=== PATIENT | female | born 1940 | race Caucasian/White ===

== ENCOUNTER → 2020-04-17 13:46 | Outpatient (BNVA) | payer MEDICARE, OTHER, SELFPAY | PROVIDERS: PCP Internal Medicine; Visit Provider Urology | DX: N31.9 Neuromuscular dysfunction of bladder, unspecified (principal); R39.14 Feeling of incomplete bladder emptying | CPT/HCPCS: 99212 ==

== ENCOUNTER 2020-08-01 14:00 | Outpatient (RCR) | payer MEDICARE, OTHER, SELFPAY ==
--- NOTE | 2020-05-17 13:52 | MHC.PT.EP ---
[facility] [place] Office [place] Office [place] Office [address] Sammie Barber [address] [phone] F: [phone] F: [phone] F: [phone] F: [phone] Physical Therapy Plan of Care Date of Evaluation: 05/17/20 Date of Surgery: none Diagnosis: Low back pain and R shoulder pain Assessment: Patient is an 79 year old R handed female who presents with s/s consistent with low back pain and R shoulder pain. She is not currently working and is fairly sedentary. She has had progressing Alzheimer's dementia. Patient past medical history includes chronic back and shoulder pain, and Alzheimer's dementia. Current impairments include pain, ROM, strength, safety, independence, activity tolerance and functional mobility. Functional limitations include decreased ability to walk, stand, transfer, negotiate stairs, and perform weight bearing activities.. Patient is motivated with good rehab potential. Skilled PT will address impairments and functional limitations in order to achieve goals. Frequency and Duration: The patient will be seen 1x/week for 8 weeks Short Term Goals: I with HEP - 2 weeks Flexion/abd 125 - 4 weeks SPADI 50/130 - 4 weeks Resident Doctor Goals: Oswestry 20% or better - 6 weeks Demo proper body mechanics for transfers and mini squat - 6 weeks Max pain 3/10 with ADLs - 8 weeks Treatment Plan: Modalities to reduce pain, spasms and effusion. Manual therapy to restore motion and function. Therapeutic exercise to improve strength and flexibility. Neuromuscular re-education for posture and balance. Therapeutic activities to return to functional activities of daily living. Electronically signed by: Alessandro Phillips, PT Please sign and return to therapist. Thank you for your referral.
--- NOTE | 2020-08-30 13:29 | MHC.PT.DC ---
[facility] [place] Office [place] Office [place] Office [address] Sammie Barber 140 [facility] [phone] F: [phone] F: [phone] F: [phone] F: [phone] Physical Therapy Discharge Report Diagnosis: Low back pain and R shoulder pain Date of Surgery: none Date of Evaluation: 05/17/20 Date of Discharge: 08/02/20 Treatments to Date: 17 Cancellations to Date: 0 No Shows to Date: 0 Discharge Status: Improved Function Independent with HEP Discharge Summary: Pt progressed well over the course of skilled PT making progress on impairments and functional limitations resulting in an improved quality of life. Pt is I with HEP and appropriate to d/c to HEP at this time. Electronically signed by: Alessandro Phillips, PT Please sign and return to therapist. Thank you for your referral.
== END 2020-08-30 13:29 | disposition home or self-care (01) ==
LOC: HO.PTCHIC 14:00
PROVIDERS: PCP Internal Medicine; Visit Provider Internal Medicine
DX: M54.5 Low back pain (principal); M25.511 Pain in right shoulder
CPT/HCPCS: 97110; 97140; 97162

== ENCOUNTER 2020-09-19 17:33 | Emergency (ER) | payer MEDICARE, OTHER, SELFPAY ==
--- NOTE | ~2020-09-19 | XR_ITS ---
EXAMINATION: XR FOREARM, RIGHT CLINICAL INFORMATION: Skin tear status post tripping and falling COMPARISON: None TECHNIQUE: AP and lateral views of the right forearm were obtained. FINDINGS: There is diffuse osteopenia. No acute fracture or dislocation. There is a chronic appearing ulnar styloid fracture. No radiopaque foreign body is visualized. XR/XR forearm RT 2V IMPRESSION: No acute bony abnormality of the right forearm. Old ulnar styloid fracture. No radiopaque foreign body.
[2020-09-19 17:55] VITALS: BP 123/61; PULSE 76; RESP 16; TEMP 36.4; O2SAT 96; BMI 23.3
--- NOTE | 2020-09-19 18:31 | ED_ITS ---
HPI - Wound/Laceration General Chief Complaint: Wound/Laceration Stated Complaint: RT ARM LACERTATION Time Seen by Provider: 09/19/20 18:11 Source: patient Mode of arrival: ambulatory Limitations: no limitations History of Present Illness HPI narrative: 80-year-old female with significant history as noted below she comes in today with injury to the right forearm from . States she tripped over his flexor and in for she hit the floor of the structure on her right forearm noticed it was a skin injury put a Band-Aid. Today has been solid felt that question may need suture and brought her in today. Also unsure of tetanus vaccination. Otherwise denies any other injury, no strike to the head not taking blood thinners. No lower extremity pain or discomfort. Onset (ago): day(s) Extremity Location: right: forearm Place: home Patient tetanus UTD: No Context: accidental Associated symptoms: none Treatments prior to arrival: cold therapy and bandage Related Data Home Medications Medication Instructions Recorded Confirmed calcium carbonate 200 mg calcium 200 mg PO TID 04/09/20 09/17/20 (500 mg) chewable tablet cranberry 400 mg capsule 400 mg PO DAILY 04/09/20 09/17/20 cyanocobalamin (vitamin B-12) 1,000 mcg PO DAILY 04/09/20 09/17/20 1,000 mcg capsule estradiol 1 g VAGINAL 2XW 04/09/20 09/17/20 fluoxetine 20 mg capsule 20 mg PO DAILY 04/09/20 09/17/20 Previous Rx's Medication Instructions Recorded simvastatin 5 mg tablet 5 mg PO BEDTIME #90 tab 03/29/20 folic acid 1 mg tablet 1 mg PO DAILY #90 tab 05/04/20 omeprazole 20 mg capsule,delayed 20 mg PO DAILY #90 cap 06/22/20 release Allergies Allergy/AdvReac Type Severity Reaction Status Date / Time Sulfa (Sulfonamide Allergy Unknown UNKNOWN, Verified 04/04/20 11:58 Antibiotics) hives [SULFA (SULFONAMIDE ANTIBIOTICS)] Review of Systems Review of Systems: Constitutional: No Weight loss, No Fever, No Chills, No Night Sweats, No Fatigue, No Malaise ENT/Mouth: No Hearing loss, No Ear Pain, No Nasal Congestion, No Sinus Pain, No Hoarseness, No sore throat, No Rhinorrhea, No Swallowing Difficulty Eyes: No Eye Pain, No Swelling, No Redness, No Foreign Body, No Discharge, No Vision Changes Cardiovascular: No Chest Pain, No SOB, No Dyspnea on Exertion, No Orthopnea, No Edema, No Palpitations Respiratory: No Cough, No Sputum, No Wheezing, No Smoke Exposure, No Dyspnea Gastrointestinal: No Nausea, No Vomiting, No Diarrhea, No Constipation, No abdominal Pain, No Hematochezia, No Melena Genitourinary: No Dysuria, No Urinary Frequency, No Hematuria, No Urinary Incontinence, No Urgency, No Flank Pain, No Urinary Flow Changes, No Hesitancy Musculoskeletal: No joint pain, No Myalgias, No Joint Swelling Skin: No Skin Lesions, No rash, as noted per HPI Neuro: No Weakness, No Numbness, No Paresthesias, No Loss of Consciousness, No Dizziness, No Headache Psych: No Social Issues Heme/Lymph: No Bruising, No Bleeding,No Lymphadenopathy Endocrine: No Polyuria, No Polydipsia, No Temperature Intolerance Yes all other systems are reviewed and are negative PMFSH Past Medical History Medical History (Updated 09/19/20 @ 18:43 by Jamaal Lowry NP) Alzheimer's dementia Esophageal stricture GERD (gastroesophageal reflux disease) Hypercholesterolemia Hypertension Left tibial fracture Neurogenic bladder Tubular adenoma of colon Vitamin D deficiency Surgical History History of biopsy History of bladder surgery History of lumpectomy of right breast History of removal of cyst History of removal of ovarian cyst History of tonsillectomy and adenoidectomy Skin cancer of face Family History Family History Father Lung cancer Mother No problems noted. Social History Social History (Updated 09/17/20 @ 11:40 by Lynne Rock CMA) Alcohol intake: current Alcohol intake frequency: a few times a month Smoking Status: Never smoker Advance Directives: No Advance Directives Information Provided: Yes Physical Exam Vital Signs: Vital Signs: Last Vital Signs Temp 97.5 F 09/19/20 17:55 Pulse 76 09/19/20 17:55 Resp 16 09/19/20 17:55 BP 123/61 09/19/20 17:55 Pulse Ox 96 09/19/20 17:55 Body Mass Index 23.3 Reviewed Const: General: cooperative and healthy appearing; No acute distress or intoxicated appearing Nutritional Appearance: average body habitus Orientation/consciousness: patient oriented x3 HENMT: Head: Yes normal to inspection Ears: hearing grossly normal bilaterally Eyes: General: appearance normal, both eyes and all related structures Visual Pradhan: normal visual pradhan by confrontation Neck: Neck: Yes normal visual inspection, No positive Brudzinski's sign, No positive Kernig's sign and No tender Thyroid: Thyroid normal Chest: Chest palpation & inspection: normal inspection of the chest Resp: Effort & Inspection: normal respiratory effort Auscultation: clear to auscultation bilaterally Cardio: Jugular venous distension: no JVD Rhythm: regular rhythm Heart sounds: S1 normal heart sound present and S2 normal heart sound present GI: Inspection: Yes normal to inspection Percussion: Yes normal to percussion Auscultation: normal bowel sounds : General: Yes no CVA tenderness Back/Spine/Pelvis: Back: no CVA tenderness Skin: General skin exam: no rashes or lesions noted Full body images: 1. 2 in linear skin looks tear mid volar forearm. Slight ecchymosis but no erythema or discharge. Skin well approximated. Neuro: General: patient oriented x3 Extrem: General: Yes normal to inspection Course Reevaluation(s) Reevaluation #1: Skin superficial skin tear without signs of infection cleaned and repaired with Steri-Strips. No need for antibiotics. X-ray without evidence of acute bony involvement. She has full range of motion x-ray does s how old findings. She has no complaint of pain or discomfort. Will discharge home with wound care return follow-up instructions. Stable for discharge. MDM - Wound/Laceration Lab Data Attestation: I reviewed the patient's lab results. Discharge Plan Discharge Clinical Impression: Skin tear, Skin wound closed with sterile strip Patient Disposition: Home, Self-Care Instructions: Skin Tear (ED) Additional Instructions: Keep site clean and dry Allow the Steri-Strips to follow up by himself in 3-5 days The x-ray the forearm did not show any evidence of acute fracture Monitor for signs for infection including redness, swelling, discharge or pain You can apply it once daily topical triple antibiotic such as bacitracin [id number] Thank you Prescriptions: No Action simvastatin 5 mg tablet 5 mg PO BEDTIME Qty: 90 RF: 3 folic acid 1 mg tablet 1 mg PO DAILY Qty: 90 RF: 3 omeprazole 20 mg capsule,delayed release(DR/EC) 20 mg PO DAILY Qty: 90 RF: 2 cyanocobalamin (vitamin B-12) 1,000 mcg capsule 1,000 mcg PO DAILY RF: 0 fluoxetine 20 mg capsule 20 mg PO DAILY RF: 0 cranberry 400 mg capsule 400 mg PO DAILY RF: 0 estradiol 0.01 % (0.1 mg/gram) cream 1 g vaginal 2XW RF: 0 calcium carbonate [Antacid (calcium carbonate)] 200 mg calcium (500 mg) tablet,chewable 200 mg PO TID RF: 0 Referrals: Po,Radha Salcido MD [Primary Care Provider] - 1 week Discharge Date/Time: 09/19/20 18:52
[2020-09-19] MEDS: Diphth,Pertus(ACell),Tet Adult 0.5 ML SYRINGE IM (18:38)
== END 2020-09-19 18:52 | disposition home or self-care (01) ==
PROVIDERS: Emergency Provider Internal Medicine; PCP Internal Medicine
DX: S51.811A Laceration without foreign body of right forearm, initial encounter (principal); M79.601 Pain in right arm; W26.9XXA Contact with unspecified sharp object(s), initial encounter; Y93.9 Activity, unspecified; Y92.009 Unspecified place in unspecified non-institutional (private) residence as the place of occurrence of the external cause; Y99.9 Unspecified external cause status; Z79.899 Other long term (current) drug therapy
CPT/HCPCS: 73090; 90471; 90715; 99283; 99284

== ENCOUNTER → 2020-10-16 13:06 | Outpatient (BNVA) | payer MEDICARE, OTHER, SELFPAY | PROVIDERS: PCP Internal Medicine; Visit Provider Urology | DX: R39.14 Feeling of incomplete bladder emptying (principal); N31.9 Neuromuscular dysfunction of bladder, unspecified; G30.9 Alzheimer's disease, unspecified; F02.80 Dementia in other diseases classified elsewhere, unspecified severity, without behavioral disturbance, psychotic disturbance, mood disturbance, and anxiety | CPT/HCPCS: 51798; 99212 ==

== ENCOUNTER 2020-11-07 11:39 | Outpatient (REF) | payer MEDICARE, OTHER, SELFPAY ==
--- NOTE | ~2020-11-07 | MM_ITS ---
EXAMINATION: MM SCREENING DIGITAL BREAST TOMOSYNTHESIS, BILATERAL CLINICAL INFORMATION: Screening. Asymptomatic. The lifetime risk of breast cancer based on the Tyrer-Cuzick Model is 2%. COMPARISON: Mammography: 01/29/2018, 12/24/2016, 12/17/2015 TECHNIQUE: Digital breast tomosynthesis is performed in both the craniocaudal and mediolateral oblique views along with computer-aided detection (CAD). Synthesized 2D images are generated from the tomosynthesis. FINDINGS: There are scattered areas of fibroglandular density (ACR BI-RADS breast composition Category b). Breast tissue composition borders on heterogeneously dense. There is fine fibronodular parenchymal pattern. There is no developing density or interval mass or architectural abnormality. Again, there are scattered bilateral grouped benign-appearing coarse calcifications which have slightly increased in number over time and show interval similar benign coarsening suggesting fibroadenomatous changes. No suspicious calcifications. The axilla and skin contours are unremarkable. MM/MM tomosynthesis screening BI IMPRESSION: No significant changes from prior studies. ASSESSMENT: BI-RADS 2: Benign RECOMMENDATION: Routine annual mammography screening. This patient's information was entered into a reminder system with a target due date for their next mammogram.
== END 2020-11-07 11:40 | disposition home or self-care (01) ==
LOC: HO.MAMMO 11:39
PROVIDERS: Visit Provider Internal Medicine
DX: Z12.31 Encounter for screening mammogram for malignant neoplasm of breast (principal)
CPT/HCPCS: 77063; 77067

== ENCOUNTER 2020-11-21 13:19 | Outpatient (REF) | payer MEDICARE, OTHER, SELFPAY ==
--- NOTE | ~2020-11-21 | MM_ITS ---
EXAMINATION: BONE DENSITOMETRY CLINICAL INDICATION: Menopause. COMPARISON: Previous BD dated 02/02/2018 and baseline BD dated 05/16/2005. TECHNIQUE: Using a [employer] DXA System (software version: 13.1) manufactured by [employer], dual-energy x-ray absorptiometry was performed of the lumbar spine and left hip. The images are of good technical quality. Summary results are attached. FINDINGS: AP SPINE L1-L4 (excluding L3): The data of L1-L4 has been changed to exclude the L3 vertebral body, because degenerative changes at this level may cause overestimation of lumbar spine density. Current: BMD 1.262 g/cm2, Z-score 2.7, T-score 0.8, normal, 2.9% increase from previous, 17.4% decrease from baseline (<5% change is not significant). Prior: BMD 1.226 g/cm2. Baseline: BMD 1.528 g/cm2. LEFT FEMUR, NECK: Current: BMD 0.780 g/cm2, Z-score 0.4, T-score -1.9, osteopenia. Prior: BMD 0.818 g/cm2. Baseline: BMD 0.989 g/cm2. LEFT FEMUR, TOTAL: Current: BMD 0.852 g/cm2, Z-score 0.9, T-score -1.2, osteopenia, 0.1% increase from previous, 14.8% decrease from baseline (<5% change is not significant). Prior: BMD 0.851 g/cm2. Baseline: BMD 1.000 g/cm2. IDENTIFIED RISK FACTORS: Menopause, height loss. HISTORY OF FRACTURE: None listed. MEDICATIONS: Vitamin D. MM/XR DEXA axial skeleton IMPRESSION: 1. DIAGNOSIS: Osteopenia based on the lowest T-score value of -1.9 in the femoral neck applying World Health Organization criteria. 2. 10-YEAR FRACTURE RISK PREDICTION, FRAX: Major osteoporotic fracture (clinical spine, forearm, hip or shoulder) 15.2%. Hip fracture 4.4%. 3. Treatment Recommendations: NOF guidelines recommend consideration for treatment in postmenopausal women and men age 50 and older presenting with the following: -A hip or vertebral (clinical or morphometric) fracture. -T-score less than or equal to -2.5 at the femoral neck or spine after appropriate evaluation to exclude secondary causes. -Low bone mass at the hip or spine and a 10-year fracture probability by FRAX of greater than or equal to 3% for hip fracture or greater than or equal to 20% for major osteoporotic fracture based on the [place] adapted WHO algorithm. 4. Other Recommendations: All treatment decisions require clinical judgment and consideration of individual patient factors, including patient preferences, comorbidities, previous drug use, risk factors not captured in the FRAX model (e.g. frailty, falls, vitamin D deficiency, increased bone turnover, interval significant decline in bone density) and possible under or overestimation of fracture risk by FRAX. Additional medical evaluation for secondary cause of low bone mineral density may be appropriate. FUTURE SCAN RECOMMENDATION: People with diagnosed cases of osteoporosis or at high risk for fracture should have regular bone mineral density tests. For patients eligible for Medicare, routine testing is allowed once every 2 years. The testing frequency can be increased to one year for patients who have rapidly progressing disease, those who are receiving or discontinuing medical therapy to restore bone mass, or have additional risk factors.
== END 2020-11-21 13:20 | disposition home or self-care (01) ==
LOC: HO.MAMMO 13:19
PROVIDERS: Visit Provider Nurse Practitioner Family
DX: Z13.820 Encounter for screening for osteoporosis (principal); M85.80 Other specified disorders of bone density and structure, unspecified site; Z78.0 Asymptomatic menopausal state; Z79.899 Other long term (current) drug therapy
CPT/HCPCS: 77080

== ENCOUNTER 2020-12-27 11:38 | Outpatient (REF) | payer MEDICARE, OTHER, SELFPAY ==
[2020-12-27 12:33] LABS: MANUAL DIFF FLAG NO
[2020-12-27 12:42] LABS: Basophils Percent Auto 0.3 % (0-2); Eosinophils Percent Auto 0.3 % (0-4); Hemoglobin 14.1 g/dl (12.0-16.0); Imm Gran Abs Auto 0.04 X10*3/uL (0.00-0.03); Imm Gran Pct Auto 0.6 % (0.0-0.4); Lymphocytes Absolute Auto 1.7 X10*3/uL (1.2-4.9); Lymphocytes Percent Auto 24.6 % (20-40); Mean Corpuscular HGB Conc 33.6 g/dl (31.0-35.0); Mean Corpuscular Hemoglobin 31.9 pg (27.0-33.0); Mean Platelet Volume 10.5 fL (9.4-12.3); Monocytes Absolute Auto 0.6 X10*3/uL (0.1-1.2); Neutrophils Absolute Auto 4.6 X10*3/uL (2.0-8.3); Neutrophils Percent Auto 65.2 % (45-73); Platelet Count 223 X10*3/uL (160-400); Red Blood Count 4.42 X10*6/uL (4.20-5.50)
[2020-12-27 13:18] LABS: Alanine Aminotransferase 12 U/L (0-31); Alkaline Phosphatase 68 U/L (39-117); Anion Gap 13 (12-20); Aspartate Amino Transferase 16 U/L (5-31); Bilirubin Total 0.8 mg/dL (0.0-1.0); Blood Urea Nitrogen 14 mg/dL (9-16); Calcium 9.4 mg/dL (8.4-10.2); Carbon Dioxide 25 mmol/L (22-29); Chloride 101 mmol/L (96-108); Cholesterol 147 mg/dL; Estimated Glomerular Filt Rate > 60; Glucose Random 90 mg/dL (60-115); HDL Cholesterol 52 mg/dL; LDL Cholesterol Calculated 85 mg/dl; Potassium 4.3 mmol/L (3.3-5.1); Sodium 135 mmol/L (135-145); Total Protein 6.2 g/dL (6.5-8.0); Triglycerides 52 mg/dL
[2020-12-27 13:25] LABS: Free T4 (Free Thyroxine) 1.17 ng/dL (0.71-1.85); Thyroid Stimulating Hormone 0.99 uIU/mL (0.32-4.0)
[2020-12-27 15:46] LABS: Folate 18.9 ng/mL (> or = 4.0); Vitamin B12 1186 pg/mL (200-900)
== END 2020-12-27 11:39 | disposition home or self-care (01) ==
LOC: HO.LAB 11:38
PROVIDERS: PCP Internal Medicine; Visit Provider Internal Medicine
DX: I10 Essential (primary) hypertension (principal); E78.00 Pure hypercholesterolemia, unspecified
CPT/HCPCS: 36415; 80053; 80061; 82607; 82746; 84439; 84443; 85025

== ENCOUNTER 2021-02-27 15:00 | Outpatient (RCR) | payer MEDICARE, OTHER, SELFPAY ==
--- NOTE | 2020-10-26 14:43 | MHC.PT.EP ---
[facility] [place] Office [place] Office [place] Office [address] Emani Barber [address] [phone] F: [phone] F: [phone] F: [phone] F: [phone] Physical Therapy Plan of Care Date of Evaluation: Date of Surgery: Diagnosis: R shoulder pain Assessment: Pt is a 80 y/o female referred to PT s/p fall for R shoulder pain who presents with R shoulder dysfunction resulting in decreased tolerance and ability to perform reaching a high shelf, dressing pullovers, reaching neck and hair for hygiene/ dressing and carrying objects of weight secondary to decreased UE strength and ROM, decreased shoulder and cervical posture, increased tissue tension and pain. Pt is deemed an appropriate candidate to receive skilled PT in order to address her physical limitations to improve her functional ability. Frequency and Duration: The patient will be seen 2 x/ wk x 5 wks. Short Term Goals: In 1 week: initiate HEP with evidence of compliance. Vat Tender Goals: I with HEP. Pt will be able to place object on high shelf with managed Sx. initial: 5/10 pain and difficulty. Pt will be able to dress pullovers with managed Sx; initial: 5/10 pain and difficulty. Treatment Plan: Modalities to reduce pain, spasms and effusion. Manual therapy to restore motion and function. Therapeutic exercise to improve strength and flexibility. Neuromuscular re-education for posture and balance. Therapeutic activities to return to functional activities of daily living. Electronically signed by: Kenan Arnett PT. Please sign and return to therapist. Thank you for your referral.
--- NOTE | 2021-07-29 08:10 | MHC.PT.DC ---
[facility] [place] Office [place] Office [place] Office [address] Sammie Barber 140 [facility] [phone] F: [phone] F: [phone] F: [phone] F: [phone] Physical Therapy Discharge Report Diagnosis: R shoulder pain Date of Surgery: Date of Evaluation: 10/26/20 Date of Discharge: 04/17/21 Treatments to Date: 13 Cancellations to Date: No Shows to Date: Discharge Status: Improved Function Independent with HEP Recommend MD Follow-up Discharge Summary: Pt did improve her ROM and functional following fall and shoulder injury though ROM and strength still limited with some age related factors considered. Electronically signed by: Kenan Arnett PT. Please sign and return to therapist. Thank you for your referral.
== END 2021-07-29 08:11 | disposition home or self-care (01) ==
LOC: HO.PTCHIC 15:00
PROVIDERS: PCP Internal Medicine; Visit Provider Internal Medicine
DX: M25.511 Pain in right shoulder; M54.50 Low back pain, unspecified
CPT/HCPCS: 97110; 97140; 97150; 97161

== ENCOUNTER → 2021-04-16 13:42 | Outpatient (BNVA) | payer MEDICARE, OTHER, SELFPAY | PROVIDERS: PCP Internal Medicine; Visit Provider Urology | DX: N31.9 Neuromuscular dysfunction of bladder, unspecified (principal); R39.14 Feeling of incomplete bladder emptying | CPT/HCPCS: 51798; 99212 ==

== ENCOUNTER → 2021-08-05 15:23 | Outpatient (BNVA) | payer MEDICARE, OTHER, SELFPAY | PROVIDERS: PCP Internal Medicine; Visit Provider Obstetrics & Gynecology | DX: N81.10 Cystocele, unspecified (principal) | CPT/HCPCS: 99202 ==

== ENCOUNTER 2021-11-21 16:06 | Outpatient (REF) | payer MEDICARE, OTHER, SELFPAY ==
--- NOTE | ~2021-11-21 | XR_ITS ---
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 TECHNIQUE: 4 views of the sinuses were obtained. FINDINGS: Sinuses show no air-fluid levels or definite mucosal thickening or polypoid mass. The nasopharynx appears normal in contour on the lateral view. The visualized mastoid air cells show no air-fluid levels. XR/XR sinus min 3V IMPRESSION: Unremarkable examination.
== END 2021-11-21 16:07 | disposition home or self-care (01) ==
LOC: HO.XRAY 16:06
PROVIDERS: PCP Internal Medicine; Visit Provider Nurse Practitioner Family
DX: J32.4 Chronic pansinusitis (principal)
CPT/HCPCS: 70220

== ENCOUNTER 2021-11-29 12:52 | Outpatient (REF) | payer MEDICARE, OTHER, SELFPAY ==
--- NOTE | ~2021-11-29 | MM_ITS ---
EXAMINATION: MM SCREENING DIGITAL BREAST TOMOSYNTHESIS, BILATERAL CLINICAL INFORMATION: Screening. Asymptomatic. The lifetime risk of breast cancer based on the Tyrer-Cuzick Model is 2%. COMPARISON: Mammography: 11/07/2020, 01/29/2018, 12/24/2016, 12/17/2015, 12/12/2014 TECHNIQUE: Digital breast tomosynthesis is performed in both the craniocaudal and mediolateral oblique views along with computer-aided detection (CAD). Synthesized 2D images are generated from the tomosynthesis. FINDINGS: There are scattered areas of fibroglandular density (ACR BI-RADS breast composition Category b). There are no significant masses, abnormal calcifications, or other abnormalities. There are scattered shifting fibroglandular parenchymal densities from year to year related to variation in positioning. No developing density or significant changes. No architectural abnormality. Scattered bilateral benign grouped coarse calcifications are again demonstrated suggesting scattered fibroadenomatous change. No interval suspicious calcifications from prior study. The axilla are unremarkable. MM/MM tomosynthesis screening BI IMPRESSION: No significant changes from prior exams. ASSESSMENT: BI-RADS 2: Benign RECOMMENDATION: Routine annual mammography screening. This patient's information was entered into a reminder system with a target due date for their next mammogram.
== END 2021-11-29 12:53 | disposition home or self-care (01) ==
LOC: HO.MAMMO 12:52
PROVIDERS: Visit Provider Internal Medicine
DX: Z12.31 Encounter for screening mammogram for malignant neoplasm of breast (principal)
CPT/HCPCS: 77063; 77067

== ENCOUNTER → 2022-03-25 15:02 | Outpatient (BNVA) | payer MEDICARE, OTHER, SELFPAY | PROVIDERS: PCP Internal Medicine; Visit Provider Urology | DX: N39.0 Urinary tract infection, site not specified (principal); R39.12 Poor urinary stream; R33.9 Retention of urine, unspecified | CPT/HCPCS: 51798; 99212 ==

== ENCOUNTER 2022-04-14 14:00 | Outpatient (RCR) | payer MEDICARE, OTHER, SELFPAY ==
--- NOTE | 2022-03-10 11:56 | MHC.PT.EP ---
[facility] [place] Office [place] Office [place] Office [address] Emani Barber [address] [phone] F: [phone] F: [phone] F: [phone] F: [phone] Physical Therapy Plan of Care Date of Evaluation: Date of Surgery: n/a Diagnosis: Pain in R shoulder Assessment: Patient is a 81 year old R handed female who presents with s/s consistent with R shoulder pain. She does not work and is limited by alzheimers dementia. She does like to stay active in the community. Current impairments include pain, posture, ROM, strength, activity tolerance and functional mobility. Functional limitations include decreased ability to reach, lift, carry, and sleep. Patient is motivated with good rehab potential. Skilled PT will address impairments and functional limitations in order to achieve goals. Frequency and Duration: The patient will be seen 1x/week for 6 weeks Short Term Goals: I with HEP - 2 weeks AROM flexion and scaption, abduction to 140 - 3 weeks ER strength to 4/5 - 3 weeks Fisheries [employer] Officer Goals: Pain free sleep and ADLs - 6 weeks SPADI 70/130 or better - 6 weeks Treatment Plan: Modalities to reduce pain, spasms and effusion. Manual therapy to restore motion and function. Therapeutic exercise to improve strength and flexibility. Neuromuscular re-education for posture and balance. Therapeutic activities to return to functional activities of daily living. Electronically signed by: Alessandro Phillips, PT Please sign and return to therapist. Thank you for your referral.
--- NOTE | 2022-07-25 08:24 | MHC.PT.DC ---
[facility] [place] Office [place] Office [place] Office [address] Sammie Barber [address] [phone] F: [phone] F: [phone] F: [phone] F: [phone] Physical Therapy Discharge Report Diagnosis: Pain in R shoulder Date of Surgery: n/a Date of Evaluation: 03/10/22 Date of Discharge: 06/10/22 Treatments to Date: 5 Cancellations to Date: No Shows to Date: Discharge Status: Improved Function Independent with HEP Discharge Summary: She did improve with strength and pain. She did also elect to hold on further PT at this time. Electronically signed by: Alessandro Phillips, PT Please sign and return to therapist. Thank you for your referral.
== END 2022-07-25 08:25 | disposition home or self-care (01) ==
LOC: HO.PTCHIC 14:00
PROVIDERS: PCP Internal Medicine; Visit Provider Internal Medicine
DX: M25.511 Pain in right shoulder (principal)
CPT/HCPCS: 97110; 97140; 97163

== ENCOUNTER 2022-08-26 12:01 | Outpatient (REF) | payer MEDICARE, OTHER, SELFPAY ==
[2022-08-26 12:22] LABS: MANUAL DIFF FLAG NO
[2022-08-26 13:15] LABS: Basophils Percent Auto 0.3 % (0-2); Eosinophils Percent Auto 0.4 % (0-4); Hematocrit 44.8 % (37.0-47.0); Imm Gran Abs Auto 0.08 X10*3/uL (0.00-0.03); Imm Gran Pct Auto 0.8 % (0.0-0.4); Lymphocytes Absolute Auto 2.1 X10*3/uL (1.2-4.9); Lymphocytes Percent Auto 20.2 % (20-40); Mean Corpuscular HGB Conc 33.5 g/dl (31.0-35.0); Mean Corpuscular Hemoglobin 31.7 pg (27.0-33.0); Mean Corpuscular Volume 94.7 fL (80.0-98.0); Mean Platelet Volume 10.2 fL (9.4-12.3); Monocytes Absolute Auto 0.8 X10*3/uL (0.1-1.2); Monocytes Percent Auto 8.1 % (2-11); Neutrophils Absolute Auto 7.2 x10*3/uL (2.0-8.3); Neutrophils Percent Auto 70.2 % (45-73); Platelet Count 234 X10*3/uL (160-400); Red Blood Count 4.73 X10*6/uL (4.20-5.50); White Blood Count 10.2 X10*3/uL (4.8-10.8)
[2022-08-26 13:53] LABS: Alanine Aminotransferase 11 U/L (0-31); Albumin Level 3.8 g/dL (3.5-5.0); Alkaline Phosphatase 69 U/L (39-117); Anion Gap 8 (12-20); Aspartate Amino Transferase 13 U/L (5-31); Blood Urea Nitrogen 15 mg/dL (9-16); Calcium 9.2 mg/dL (8.4-10.2); Carbon Dioxide 30 mmol/L (22-29); Chloride 103 mmol/L (96-108); Cholesterol 204 mg/dL; Estimated Glomerular Filt Rate > 60; Glucose Fasting 85 mg/dL (60-99); HDL Cholesterol 58 mg/dL; LDL Cholesterol Calculated 133 mg/dl; Sodium 137 mmol/L (135-145); Total Protein 5.9 g/dL (6.5-8.0); Triglycerides 69 mg/dL
[2022-08-26 14:17] LABS: Folate > 20.0 ng/mL (> or = 4.0); Free T4 (Free Thyroxine) 1.15 ng/dL (0.71-1.85); Thyroid Stimulating Hormone 0.98 uIU/mL (0.32-4.0); Vitamin B12 799 pg/mL (200-900); Vitamin D 25-OH Total 47.7 ng/mL (>30)
== END 2022-08-26 12:02 | disposition home or self-care (01) ==
LOC: HO.LAB 12:01
PROVIDERS: PCP Internal Medicine; Visit Provider Internal Medicine
DX: E78.00 Pure hypercholesterolemia, unspecified (principal); K21.9 Gastro-esophageal reflux disease without esophagitis; I10 Essential (primary) hypertension; S82.202A Unspecified fracture of shaft of left tibia, initial encounter for closed fracture; X58.XXXA Exposure to other specified factors, initial encounter; Y93.9 Activity, unspecified; Y92.9 Unspecified place or not applicable; Y99.9 Unspecified external cause status
CPT/HCPCS: 36415; 80053; 80061; 82306; 82607; 82746; 84439; 84443; 85025

== ENCOUNTER → 2022-09-30 11:27 | Outpatient (BNVA) | payer MEDICARE, OTHER, SELFPAY | PROVIDERS: PCP Internal Medicine; Visit Provider Nurse Practitioner Family | DX: R33.9 Retention of urine, unspecified (principal); N39.0 Urinary tract infection, site not specified | CPT/HCPCS: 51798; 99212 ==

== ENCOUNTER 2022-12-16 12:21 | Outpatient (REF) | payer MEDICARE, OTHER, SELFPAY ==
--- NOTE | ~2022-12-16 | MM_ITS ---
EXAMINATION: MM SCREENING DIGITAL BREAST TOMOSYNTHESIS, BILATERAL CLINICAL INFORMATION: Screening. Asymptomatic. The lifetime risk of breast cancer based on the Tyrer-Cuzick Model is 0.9%. COMPARISON: Mammography: This study is compared with prior exams dating back to 2017. TECHNIQUE: Digital breast tomosynthesis is performed in both the craniocaudal and mediolateral oblique views along with computer-aided detection (CAD). Synthesized 2D images are generated from the tomosynthesis. FINDINGS: There are scattered areas of fibroglandular density (ACR BI-RADS breast composition Category b). There are no significant masses, abnormal calcifications, or other abnormalities. There are bilateral benign calcifications. MM/MM tomosynthesis screening BI IMPRESSION: No mammographic evidence of malignancy. ASSESSMENT: BI-RADS BI-RADS 2 - Benign Findings RECOMMENDATION: Routine annual mammography screening. 1 year F/U This examination should not preclude the clinical evaluation of a suspicious palpable abnormality. This patient's information was entered into a reminder system with a target due date for their next mammogram.
== END 2022-12-16 12:22 | disposition home or self-care (01) ==
LOC: HO.MAMMO 12:21
PROVIDERS: PCP Internal Medicine; Visit Provider Internal Medicine
DX: Z12.31 Encounter for screening mammogram for malignant neoplasm of breast (principal)
CPT/HCPCS: 77063; 77067

== ENCOUNTER → 2022-12-16 12:30 | Outpatient (BNV) | payer MEDICARE, OTHER, SELFPAY | PROVIDERS: PCP Internal Medicine; Visit Provider Radiology Diagnostic Radiology | DX: Z12.31 Encounter for screening mammogram for malignant neoplasm of breast (principal) | CPT/HCPCS: 77063; 77067 ==

== ENCOUNTER 2023-02-27 14:27 | Outpatient (AMB) | payer MEDICARE, OTHER, SELFPAY ==
[2023-02-27 14:38] VITALS: BP 126/62; PULSE 75; O2SAT 100; BMI 22.3
--- NOTE | 2023-02-27 14:38 | A.OFFPC_ITS ---
Vital Signs 02/27/23 14:38 Height 5 ft 3 in Weight 126 lb BMI 22.3 BP 126/62 Blood Pressure Location Lt brachial Position Sitting Pulse 75 Pulse Source Pulse Oximeter Pulse Oximetry (%) 100 Oxygen Delivery Method Room Air Intake Visit Reasons: 3 month f/u Allergies Sulfa (Sulfonamide Antibiotics) [SULFA (SULFONAMIDE ANTIBIOTICS)] Allergy (Unknown, Verified 02/27/23 14:38) UNKNOWN, hives Medication List - Last Reconciled 02/27/23 by Radha Kendall MD bethanechol chloride 5 mg PO TID cholecalciferol (vitamin D3) 50 mcg PO DAILY 90 days cranberry 400 mg PO DAILY cyanocobalamin (vitamin B-12) 1,000 mcg PO DAILY 90 days donepezil 10 mg PO BEDTIME fluticasone propionate 50 mcg/actuation (Flonase Allergy Relief) 1 spray intranasal DAILY folic acid 1 mg PO DAILY ketoconazole 2% 1 appl topical BID 30 days loratadine (Children's Loratadine) 5 mg PO DAILY omeprazole 20 mg PO DAILY sertraline 25 mg PO DAILY simvastatin 5 mg PO BEDTIME sodium chloride 0.65% (Saline Nasal) 1 spray intranasal Q4H PRN tamsulosin 0.4 mg PO BEDTIME Tobacco use date assessed: 06/03/22 Fall risk assessment: No Falls in past year Last assessed Fall Risk: 02/27/23 Dental Screening Dental Screen Date: 02/27/23 Did you have a dental visit in the last 12 months?: Yes Did you have a dental problem in the last 6 months where you did not have access to dental care?: No Was dental information given to patient?: Patient has dentist HPI 3 month f/u HPI Details 82-year-old female with dementia, hyperc holesterolemia GERD and neurogenic bladder coming in for follow-up last seen in August 2022 patient is up-to-date with mammogram and colonoscopy. Patient was sent to the memory clinic for the dementia vascular late dementia diagnosis states good candidate for Aricept 10 mg once a day advised LDL of less than 70. Review of the notes received from [facility] September 2022 having total abdominal hysterectomy with bilateral salpingo-oophorectomy september 2022. Patient has also seen urology for the incomplete bladder emptying patient on self catheterization and given Estrace cream. will be seeing urology ? stim [facility] Medical History (Updated 02/27/23 @ 14:58 by Radha Kendall MD) Alzheimer's dementia Medicare annual wellness visit, subsequent Post-menopausal Nocturia Weak urinary stream Left tibial fracture Vitamin D deficiency Neurogenic bladder GERD (gastroesophageal reflux disease) Esophageal stricture Hypercholesterolemia Hypertension Tubular adenoma of colon Surgical History (Updated 02/27/23 @ 14:59 by Radha Kendall MD) S/P CONSUELO-BSO History of colonoscopy Skin cancer of face History of removal of cyst History of biopsy History of lumpectomy of right breast History of removal of ovarian cyst History of bladder surgery History of tonsillectomy and adenoidectomy Family History Father Lung cancer Mother No problems noted. Social History Housing: House Alcohol intake: current Alcohol intake frequency: a few times a month Patient Tobacco Use Status: Never used Tobacco Cigarette Packs Per Day: 0 Cigarettes Per Day: 0 Years Smoked: 0 e-Cigarette/Vaping Use: Never Used Second Hand Smoke Exposure: No service: No Current occupational status: retired Current occupational exposures/hazards: No Cognitive needs: No Hearing needs: Yes Vision needs: Yes Questionnaire PHQ-9 Over the last 2 weeks, how often have you been bothered by any of the following problems? 1. Little interest or pleasure in doing things: not at all 2. Feeling down, depressed, or hopeless: several days 3. Trouble falling or staying asleep, or sleeping too much: not at all 4. Feeling tired or having little energy: several days 5. Poor appetite or overeating: not at all 6. Feeling bad about yourself - or that you are a failure or have let yourself or your family down: not at all 7. Trouble concentrating on things, such as reading the newspaper or watching television: not at all 8. Moving or speaking so slowly that other people could have noticed. Or the opposite - being so fidgety or restless that you have been moving around a lot more than usual: not at all 9. Thoughts that you would be better off or of hurting yourself in some way: not at all Total score: 2 Depression Screening Interpretation: Positive Depression Screening Done: Yes Source: Developed by Drs. Srinivas Vallecillo, Lindsay Copeland, Alon Shrestha and colleagues, with an educational adriana from [employer]. Thrive Questionnaire Date Thrive assessed: 06/03/22 AUDIT C Alcohol Use Questionnaire (AUDIT-C) 1. How often do you have a drink containing alcohol?: 4 or more times a week 2. How many drinks containing alcohol do you have on a typical day when you are drinking?: 1 or 2 3. How often do you have six or more drinks on one occasion?: Never Total Score: 4 MARÍA-7 AMB Questionnaire MARÍA-7 Date MARÍA - 7 assessed: 06/03/22 Source: Developed by Drs. Srinivas Vallecillo, Lindsay Copeland, Alon Shrestha and colleagues, with an educational adriana from [employer]. Physical exam (Primary Care) Vital Signs: Last Vital Signs Pulse 75 02/27/23 14:38 BP 126/62 02/27/23 14:38 Pulse Ox 100 02/27/23 14:38 Oxygen Delivery Method Room Air 02/27/23 14:38 BMI result Body Mass Index 22.3 Tobacco/Smoking Status: Tobacco use Status Tobacco use date assessed 06/03/22 02/27/23 14:39 Patient Tobacco Use Status Never used Tobacco 02/27/23 14:39 e-Cigarette/Vaping Use Never Used 02/27/23 14:39 PHQ-9: PHQ-9 Score PHQ-9: Total score 2 02/27/23 14:39 Depression Screening Interpretation: Positive Thrive Assessment: Date of Thrive Assessment Date Thrive assessed 06/03/22 02/27/23 14:39 Const General: alert; No acute distress Eyes Conjunctivae: conjunctivae normal Resp Auscultation: clear to auscultation bilaterally Cardio Rate: regular rate Rhythm: regular rhythm GI Inspection: Yes normal to inspection Extrem General: Yes normal to inspection and No edema Assessment and Plan Assessment & Plan (1) Status post total abdominal hysterectomy and bilateral salpingo-oophorectomy (CONSUELO-BSO): Comment: September 2022, uterine mass(benign) Code(s): Z90.710 - Acquired absence of both cervix and uterus; Z90.722 - Acquired absence of ovaries, bilateral; Z90.79 - Acquired absence of other genital organ(s) (2) Urinary retention with incomplete bladder emptying: Code(s): R33.9 - Retention of urine, unspecified Plan: Follows up with urology having self catheterization (3) Vascular dementia: Code(s): F01.50 - Vascular dementia, unspecified severity, without behavioral disturbance, psychotic disturbance, mood disturbance, and anxiety Plan: Neuropsychiatry evaluation 2022 advised Aricept (4) GERD (gastroesophageal reflux disease): Code(s): K21.9 - Gastro-esophageal reflux disease without esophagitis Qualifiers: Esophagitis presence: without esophagitis Qualified Code(s): K21.9 - Gastro-esophageal reflux disease without esophagitis Plan: Avoid the foods that causes that usually spicy foods, tomato products, juices, coffee, soda and foods that your sensitive to. After eating do not lie down, allow 3-4 hours before in lie down. And keep the head of bed above 30 degrees to avoid the acid from going up. (5) Hypercholesterolemia: Code(s): E78.00 - Pure hypercholesterolemia, unspecified Plan: Avoid fried foods, chicken skin, eggs, butter margarine, pastries and meat. Be it pork or beef they have a lot of cholesterol patient on simvastatin 5 mg once a day August 2022 is 133 goal of less than 7 Orders: Orders Free T4 (Free Thyroxine) Today K21.9 - Gastro-esophageal reflux disease without esophagitis Thyroid Stimulating Hormone Today K21.9 - Gastro-esophageal reflux disease without esophagitis Complete Blood Count Auto Diff Today K21.9 - Gastro-esophageal reflux disease without esophagitis Comprehensive Met. Panel Today K21.9 - Gastro-esophageal reflux disease without esophagitis Vitamin B12 and Folate Today K21.9 - Gastro-esophageal reflux disease without esophagitis Lipid Panel Today E78.00 - Pure hypercholesterolemia, unspecified, K21.9 - Gastro-esophageal reflux disease without esophagitis UA w Microscopic Today K21.9 - Gastro-esophageal reflux disease without esophagitis Medications: New donepezil 10 mg PO BEDTIME 30 tabs 0RF tamsulosin 0.4 mg PO BEDTIME 30 caps 0RF loratadine 10 mg PO DAILY 90 tabs 0RF Discontinued bethanechol chloride Discontinued Reason: Change Referral Type 5 mg PO TID loratadine (Children's Loratadine) Discontinued Reason: Ancillary Entered New Order 5 mg PO DAILY 90 tabs 3RF Coding Level of Care Code Est Pt Level 4 (25123) Diagnoses Status post total abdominal hysterectomy and bilateral salpingo-oophorectomy (CONSUELO-BSO) Z90.710; Z90.722; Z90.79 Urinary retention with incomplete bladder emptying R33.9 Vascular dementia F01.50 Gastroesophageal reflux disease without esophagitis K21.9 Esophagitis presence: without esophagitis Hypercholesterolemia E78.00 Additional Codes PHQ-9 - 76120 - PHQ-9 Billing: ([id number])
== END 2023-02-27 15:31 | disposition home or self-care (01) ==
PROVIDERS: Visit Provider Internal Medicine
DX: R33.9 Retention of urine, unspecified (principal); F01.50 Vascular dementia, unspecified severity, without behavioral disturbance, psychotic disturbance, mood disturbance, and anxiety; K21.9 Gastro-esophageal reflux disease without esophagitis; E78.00 Pure hypercholesterolemia, unspecified
CPT/HCPCS: 99214

== ENCOUNTER 2023-03-24 10:52 | Outpatient (REF) | payer MEDICARE, OTHER, SELFPAY ==
[2023-03-24 11:19] LABS: MANUAL DIFF FLAG NO
[2023-03-24 11:51] LABS: Basophils Percent Auto 0.3 % (0-2); Eosinophils Percent Auto 0.6 % (0-4); Hematocrit 39.8 % (37.0-47.0); Hemoglobin 12.9 g/dl (12.0-16.0); Imm Gran Abs Auto 0.02 X10*3/uL (0.00-0.03); Imm Gran Pct Auto 0.3 % (0.0-0.4); Lymphocytes Absolute Auto 1.6 X10*3/uL (1.2-4.9); Lymphocytes Percent Auto 26.6 % (20-40); Mean Corpuscular HGB Conc 32.4 g/dl (31.0-35.0); Mean Corpuscular Hemoglobin 30.7 pg (27.0-33.0); Mean Corpuscular Volume 94.8 fL (80.0-98.0); Monocytes Absolute Auto 0.7 X10*3/uL (0.1-1.2); Neutrophils Absolute Auto 3.8 x10*3/uL (2.0-8.3); Neutrophils Percent Auto 61.2 % (45-73); Platelet Count 252 X10*3/uL (160-400); Red Cell Distribution Width 14.2 % (11.0-16.0); White Blood Count 6.2 X10*3/uL (4.8-10.8)
[2023-03-24 12:29] LABS: Alanine Aminotransferase 10 U/L (0-31); Albumin Level 3.6 g/dL (3.5-5.0); Alkaline Phosphatase 66 U/L (39-117); Anion Gap 11 (12-20); Aspartate Amino Transferase 17 U/L (5-31); Bilirubin Total 0.4 mg/dL (0.0-1.0); Blood Urea Nitrogen 13 mg/dL (9-16); Calcium 9.2 mg/dL (8.4-10.2); Carbon Dioxide 29 mmol/L (22-29); Chloride 105 mmol/L (96-108); Cholesterol 184 mg/dL (<200); Estimated Glomerular Filt Rate > 60; Glucose Random 85 mg/dL (60-115); HDL Cholesterol 51 mg/dL (>40); LDL Cholesterol Calculated 115 mg/dL (<100); Potassium 3.7 mmol/L (3.3-5.1); Sodium 141 mmol/L (135-145); Total Protein 5.9 g/dL (6.5-8.0); Triglycerides 91 mg/dL (<150)
[2023-03-24 12:51] LABS: Free T4 (Free Thyroxine) 0.83 ng/dL (0.71-1.85); Thyroid Stimulating Hormone 1.42 uIU/mL (0.32-4.0)
[2023-03-24 13:01] LABS: Folate 13.2 ng/mL (> or = 4.0); Vitamin B12 419 pg/mL (200-900)
[2023-03-24 14:01] LABS: Appearance Urine Cloudy; Color Urine Yellow; Glucose Urine UA Negative (Negative); Leukocyte Esterase Urine Moderate (2+) (Negative); Nitrite Urine Positive (Negative); PH 6.5 (5.0-9.0); UMIC TRIGGER UA YES; Urine Blood Negative (Negative); Urine Ketones Negative (Negative); Urine Protein Trace mg/dL (Neg-Trace)
[2023-03-24 14:13] LABS: Bacteria Urine 4+ (None Seen); Hyaline Casts Urine 0-2 /LPF (0-2); RBC Urine 0-2 /HPF (0-2); Squamous Epithelial Cell Urine 0-2 /HPF (0-2); WBC Urine >50 /HPF (0-5)
== END 2023-03-24 10:53 | disposition home or self-care (01) ==
LOC: HO.LAB 10:52
PROVIDERS: PCP Internal Medicine; Visit Provider Internal Medicine
DX: K21.9 Gastro-esophageal reflux disease without esophagitis (principal); E78.00 Pure hypercholesterolemia, unspecified
CPT/HCPCS: 36415; 80053; 80061; 81001; 82607; 82746; 84439; 84443; 85025

== ENCOUNTER 2023-05-27 17:59 | Inpatient (IN) | payer MEDICARE, OTHER, SELFPAY ==
--- NOTE | ~2023-05-27 | XR_ITS ---
Examination: Chest, AP pelvis and right hip. CLINICAL HISTORY: Pain, fall. COMPARISON: Chest 07/25/2016 TECHNIQUE: Chest one view. AP pelvis and right hip 3 views. FINDINGS: Chest: The lungs are well-expanded and clear of acute pneumonic process. Heart size and pulmonary vascularity is normal. There is mild dextro scoliosis dorsal spine with degenerative disc changes with spondylosis at every disc level. AP pelvis and right hip: There is a comminuted intertrochanteric fracture right femur without dislocation. The left hip joint appears normal. SI joints and the rest of the pelvis is normal. Mild degenerative disc changes lower lumbar spine is noted. XR/XR hip RT w PEL1V IMPRESSION: 1. Comminuted intertrochanteric fracture right femur without dislocation. 2. No acute cardiopulmonary process seen. 3. Mild dextroscoliosis dorsal spine with degenerative disc changes and spondylosis.
--- NOTE | ~2023-05-27 | FL_ITS ---
EXAMINATION: XR FLUOROSCOPY WITH IMAGES CLINICAL INFORMATION: Hip fracture COMPARISON: Hip x-ray on 05/27/2023 TECHNIQUE: Fluoroscopy Supervised By: Dr. Fransisco Mcghee. Fluoroscopy Time: 0.9 minutes. Cumulative Dose: 14.4 mGy. DAP: 0.239 mGym2. Images: 4 FINDINGS: Interval ORIF of the proximal right femoral fracture. Orthopedic hardware is intact. The hip joint is aligned. FL/FL guidance in OR IMPRESSION: Fluoroscopy performed during ORIF of the hip. Please see operative report for additional information.
--- NOTE | ~2023-05-27 | CT_ITS ---
EXAMINATION: CT head/brain wo IV con, CT cervical spine wo IV con INDICATION INFORMATION: Reason for Exam Fall COMPARISON: None TECHNIQUE: Separate noncontrast CT examinations of the head and cervical spine were performed. Coronal and sagittal images were created for each examination at the technologist workstation. This CT examination was performed using dose optimization techniques as appropriate, variously including the following: *Automated exposure control *Adjustment of mA and/or kV according to patient size (this includes techniques or standardized protocols for targeted exams where dose is matched to indication/reason for exam; i.e. extremities or head) *Use of iterative reconstruction technique DLP: 1049.31 mGy-cm FINDINGS: Head: Right superior parietal scalp soft tissue swelling. No evidence of underlying calvarial fracture. The mastoid air cells and visualized portions of the paranasal sinuses are well aerated. There is no evidence of acute intracranial hemorrhage or territorial infarction. No abnormal mass effect or midline shift is seen. Villalobos to white matter differentiation is well preserved. No extra-axial fluid collections are identified. No hydrocephalus. Proportional prominence of the ventricles and sulcal spaces is consistent with mild volume loss. Patchy periventricular and deep white matter hypoattenuation is consistent with moderate small vessel ischemic changes. Cervical spine: There is no evidence of acute cervical spine fracture. Vertebral bodies remain normal in height. Trace anterolisthesis at C4-C5 and C7 on T1, likely on the basis of degenerative facet disease. Degenerative disc space narrowing and endplate contour changes at C5-C6 and C6-C7. Multilevel facet arthropathy. No pre- or paravertebral soft tissue abnormality is identified. Visualized portions of the lung apices are unremarkable. 2.3 cm hypodense nodule in the right lobe of the thyroid gland. CT/CT cervical spine wo IV con IMPRESSION: 1. No acute intracranial abnormality. 2. No cervical spine fracture or traumatic malalignment. 3. 2.3 cm right thyroid nodule. Recommend further assessment with thyroid ultrasound.
--- NOTE | ~2023-05-27 | XR_ITS ---
Examination: Chest, AP pelvis and right hip. CLINICAL HISTORY: Pain, fall. COMPARISON: Chest 07/25/2016 TECHNIQUE: Chest one view. AP pelvis and right hip 3 views. FINDINGS: Chest: The lungs are well-expanded and clear of acute pneumonic process. Heart size and pulmonary vascularity is normal. There is mild dextro scoliosis dorsal spine with degenerative disc changes with spondylosis at every disc level. AP pelvis and right hip: There is a comminuted intertrochanteric fracture right femur without dislocation. The left hip joint appears normal. SI joints and the rest of the pelvis is normal. Mild degenerative disc changes lower lumbar spine is noted. XR/XR chest 1V IMPRESSION: 1. Comminuted intertrochanteric fracture right femur without dislocation. 2. No acute cardiopulmonary process seen. 3. Mild dextroscoliosis dorsal spine with degenerative disc changes and spondylosis.
[2023-05-27 18:19] VITALS: BP 138/69; BP 162/61; PULSE 64; PULSE 70; RESP 16; TEMP 36.5; O2SAT 100; O2SAT 99; BMI 19.7
--- NOTE | 2023-05-27 18:48 | PC.NURSE ---
pt comes from home after a mechanical fall. pt sts she tripped, does not use a walker/cane to walk. pt reporting 8/10 pain to right hip and pain to right back of head where there is a good sized bump. pt presented in c-collar placed by EMS. 20G IV placed to RAC by EMS. pt also medicated with 50 mcg fentanyl by EMS. pt sts no pain relief. pt lives at home with to which pt sts is sick at moment. pt hx of dementia. however, a&o x4 shana. pt changed over to hospital gown. BP elevated. pt watching tv, call dubois within pt reach. awaiting provider. plan of care ongoing.
--- NOTE | 2023-05-27 18:57 | ECG_ITS ---
Test Reason : FALL Blood Pressure : / mmHG Vent. Rate : 062 BPM Atrial Rate : 062 BPM P-R Int : 182 ms QRS Dur : 088 ms QT Int : 430 ms P-R-T Axes : 012 -23 043 degrees QTc Int : 436 ms Normal sinus rhythm Normal ECG When compared with ECG of 23-SEP-2015 17:03, Questionable change in QRS duration Referred By: Ana Rosa Real Electronically Signed By:MICHELLE CONDE MD
--- NOTE | 2023-05-27 19:20 | ED.FALL ---
HPI - Fall General Chief Complaint: Fall Stated Complaint: UNWIT FALL, R SHOULDER/HIP PAIN,+headstrike Time Seen by Provider: 05/27/23 18:36 Source: patient and family Mode of arrival: EMS History of Present Illness HPI Narrative: 82-year-old female with dementia, lives at home with her and states that she was trying to do something in the kitchen when she tripped and fell backwards and reports right hip pain, positive head strike no loss of consciousness and is not on chronic blood thinners. Related Data Home Medications Medication Instructions Recorded Confirmed aspirin 500 mg tablet (Extra 500 mg PO Q6H PRN Pain 05/27/23 05/27/23 Strength Pattie) cranberry extract-vitamin C 250 1 cap PO DAILY 05/27/23 05/27/23 mg-60 mg capsule fluticasone propionate 50 1 spray intranasal DAILY PRN 05/27/23 05/27/23 mcg/actuation nasal Congestion spray,suspension (Flonase Allergy Relief) simethicone 80 mg chewable tablet 80 mg PO 5XD PRN GI UPSET 05/27/23 05/27/23 Previous Rx's Medication Instructions Recorded cholecalciferol (vitamin D3) 50 50 mcg PO DAILY 90 days #90 caps 11/06/20 mcg (2,000 unit) capsule sodium chloride 0.65 % nasal spray 1 spray intranasal Q4H PRN for 09/27/21 aerosol (Saline Nasal) congestion #44 mL folic acid 1 mg tablet 1 mg PO DAILY #90 tabs 05/14/22 cyanocobalamin (vitamin B-12) 1,000 mcg PO DAILY 90 days #90 tabs 08/29/22 1,000 mcg tablet simvastatin 5 mg tablet 5 mg PO BEDTIME #90 tabs 11/26/22 sertraline 25 mg tablet 25 mg PO DAILY #90 tabs 12/16/22 donepezil 10 mg tablet 10 mg PO BEDTIME #30 tabs 02/27/23 loratadine 10 mg tablet 10 mg PO DAILY #90 tabs 02/27/23 tamsulosin 0.4 mg capsule 0.4 mg PO BEDTIME #30 caps 02/27/23 omeprazole 20 mg capsule,delayed 20 mg PO DAILY #90 caps 04/26/23 release Allergies Allergy/AdvReac Type Severity Reaction Status Date / Time Sulfa (Sulfonamide Allergy Unknown UNKNOWN, Verified 02/27/23 14:38 Antibiotics) hives [SULFA (SULFONAMIDE ANTIBIOTICS)] Review of Systems Review of Systems: Pertinent positives and negatives as stated in [facility] Past Medical History Source: nursing notes reviewed Onset Date is defined in the Problem List Problems that require an onset date and time if occurred within 24 hrs of arrival to the ED Aortic Dissection and Rupture; Neurologic impairment; Cardiopulmonary Arrest; Endotracheal Intubation; Insertion or Replacement of Mechanical Circulatory Assist Device Medical History Alzheimer's dementia Medicare annual wellness visit, subsequent Post-menopausal Nocturia Weak urinary stream Left tibial fracture Vitamin D deficiency Neurogenic bladder GERD (gastroesophageal reflux disease) Esophageal stricture Hypercholesterolemia Hypertension Tubular adenoma of colon Surgical History S/P COSNUELO-BSO History of colonoscopy Skin cancer of face History of removal of cyst History of biopsy History of lumpectomy of right breast History of removal of ovarian cyst History of bladder surgery History of tonsillectomy and adenoidectomy Family History Family History Father Lung cancer Mother No problems noted. Social History Social History Housing: House Alcohol intake: current Alcohol intake frequency: does not drink Patient Tobacco Use Status: Never used Tobacco Cigarette Packs Per Day: 0 Cigarettes Per Day: 0 Years Smoked: 0 Smoked in Last 30 Days: No e-Cigarette/Vaping Use: Never Used Second Hand Smoke Exposure: No Use of substances other than those prescribed or required for medical reasons: No Advance Directives: No Advance Directives Information Provided: No service: No Current occupational status: retired Current occupational exposures/hazards: No Cognitive needs: No Hearing needs: Yes Vision needs: Yes Physical Exam Vital Signs: Vital Signs: Last Vital Signs Temp 98.4 F 05/27/23 19:22 Pulse 61 05/27/23 19:22 Resp 16 05/27/23 19:22 BP 173/61 H 05/27/23 19:22 Pulse Ox 96 05/27/23 19:22 O2 Del Method Room Air 05/27/23 19:22 BMI result Body Mass Index 19.7 VITAL SIGNS: Reviewed. GENERAL: Well developed, well nourished, in no acute distress. HEAD: Normocephalic/atraumatic EYES: PERRLA, EOMI EARS: Ext canals without abnormality NOSE: Nares patent bilateral OROPHARYNX: no oral lesions noted, posterior pharynx clear NECK: C-collar in place without midline cervical spine tenderness to palpation or step-offs. LUNGS: Normal breath sounds. No adventitious sounds or accessory muscle use. SpO2<100> CARDIOVASCULAR: Regular rate and rhythm without noted murmurs, no JVD or lower extremity edema. ABDOMEN: Soft, non-tender, non-distended with bowel sounds. PELVIS: Tenderness to palpation at right hip, right lower extremity is noted to be externally rotated and shortened, palpable pulses and sensation is intact distally. MUSCULOSKELETAL: No tenderness, deformities, or effusions noted on gross inspection. EXTREMITIES: No cyanosis, clubbing or edema. SKIN: Inspection of the skin reveals no rashes NEUROLOGIC: Alert and oriented x 4. Strength and sensation to light touch were grossly intact x 4. Medications Administered Generic Name Dose Route Start Last Admin Trade Name Freq PRN Reason Stop Dose Admin Sodium Chloride 1,000 mls @ 75 mls/hr 05/27/23 19:30 05/27/23 20:22 Ns IVCONT 75 mls/hr .[id number] GEOVANNA Administration Discontinued Medications Generic Name Dose Route Start Last Admin Trade Name Freq PRN Reason Stop Dose Admin Ketorolac Tromethamine 15 mg 05/27/23 20:26 05/27/23 20:31 Ketorolac Tromethamine 30 Mg/Ml Vial IVPUSH 05/27/23 20:27 15 mg ONCE ONE Administration Medical Decision Making Medical Decision Making [facility] Narrative: 82-year-old female with history and clinical presentation, DDX: Suspected right hip fracture, otherwise clinical exam is benign. 1921: I discussed case with orthopedics who agrees with admission to medicine for underlying comorbidities and request the patient be kept NPO. I reviewed all investigations and hematologic indices are negative for leukocytosis or left shift and there is no anemia or thrombocytopenia. Coagulation studies are within normal limits. PENDING: CT head/neck, Dre conrad/GOLD 1999: I discussed the case with inpatient hospitalist who accepts admission. 2054: CT of the head negative for intracranial hemorrhage or mass effect, CT of the cervical spine negative for fracture or subluxation. There is a noted thyroid nodule which is included on diagnoses and will need further follow-up. 2119: Urinalysis positive for nitrites, will obtain lactic acid/blood cultures and then administer antibiotics. Differential Diagnosis Differential Diagnoses: The differential diagnosis associated with the presentation includes Please see the discussion above Admission/Observation Consideration of admission/observation: Escalation of care including admission/observation considered Please see the discussion above Consult Healthcare Provider Management of the patient was discussed with: Hospitalist and Operations Controller Please see the discussion above Lab Data MDM Lab Attestation statement: I reviewed the patient's lab results. Please see the discussion above 05/27/23 19:28 05/27/23 19:28 Labs: Lab Results 05/27/23 05/27/23 Range/Units 19:28 21:05 WBC 8.5 (4.8-10.8) X10*3/uL RBC 4.19 L (4.20-5.50) X10*6/uL Hgb 12.5 (12.0-16.0) g/dl Hct 38.1 (37.0-47.0) % MCV 90.9 (80.0-98.0) fL MCH 29.8 (27.0-33.0) pg MCHC 32.8 (31.0-35.0) g/dl RDW 14.0 (11.0-16.0) % Plt Count 198 (160-400) X10*3/uL MPV 10.2 (9.4-12.3) fL Immature Gran % (Auto) 0.6 H (0.0-0.4) % Neut % (Auto) 71.9 (45-73) % Lymph % (Auto) 16.7 L (20-40) % Schleicher % (Auto) 10.0 (2-11) % Eos % (Auto) 0.7 (0-4) % Baso % (Auto) 0.1 (0-2) % Lymph # (Auto) 1.4 (1.2-4.9) X10*3/uL Schleicher # (Auto) 0.9 (0.1-1.2) X10*3/uL Eos # (Auto) 0.1 (0.0-0.4) X10*3/uL Baso # (Auto) 0.0 (0.0-0.2) X10*3/uL Abs Immat Gran (auto) 0.05 H (0.00-0.03) X10*3/uL Absolute Neuts (auto) 6.1 (2.0-8.3) x10*3/uL Absolute Nucleated RBC 0.000 (0.0-0.012) X10*3/uL Nucleated RBC % (auto) 0.0 (0.0-0.2) /100WBC PT 11.5 (11.1-13.3) SEC INR 0.9 (0.9-1.1) Sodium 138 (135-145) mmol/L Potassium 3.8 (3.3-5.1) mmol/L Chloride 107 (96-108) mmol/L Carbon Dioxide 22 (22-29) mmol/L Anion Gap 13 (12-20) BUN 17 H (9-16) mg/dL Creatinine 0.65 (0.5-1.4) mg/dL Estim Creat Clear Calc 57.3 Estimated GFR > 60 Random Glucose 126 H (60-115) mg/dL Calcium 8.5 D (8.4-10.2) mg/dL Total Bilirubin 0.5 (0.0-1.0) mg/dL AST 13 (5-31) U/L ALT 7 (0-31) U/L Alkaline Phosphatase 65 (39-117) U/L Total Protein 5.7 L (6.5-8.0) g/dL Albumin 3.5 (3.5-5.0) g/dL Urine Color Dark Yellow Urine Appearance Turbid Urine pH 5.5 (5.0-9.0) Ur Specific [place] 1.020 (1.005-1.025) Urine Protein Negative (Neg-Trace) mg/dL Urine Glucose (UA) Negative (Negative) mg/dL Urine Ketones Trace (Negative) mg/dL Urine Blood Negative (Negative) Urine Nitrite Positive H (Negative) Ur Leukocyte Esterase Small (1+) H (Negative) Blood Type O Negative Antibody Screen NEGATIVE Independent Interpretation I performed an independent interpretation of an: EKG Interpretation: Normal sinus rhythm, HR-62, no STEMI, KS/QRS/QTC is within normal limits. Radiology Impression Discussion of test interpretation with radiology: I have reviewed the radiologist's reading. Radiologist Impression: Please see the discussion above External Record Review External record reviewed: Outpatient record, Prior outpatient labs and Prior outpatient radiology Critical Care Time Critical Care Time Critical Care Time: Yes Total Critical Care Time: 60 Attestation: I personally attest to this time spent taking care of the patient. Discharge Plan Discharge Clinical Impression: Fall, Closed fracture of right hip, Contusion of scalp, Right thyroid nodule, Acute UTI Patient Disposition: Admitted As Inpatient
[2023-05-27 19:22] VITALS: BP 173/61; PULSE 61; RESP 16; TEMP 36.9; O2SAT 96
--- NOTE | 2023-05-27 19:32 | MHC.EDTECH ---
This pct took labs and type and screen. EKG done.
[2023-05-27 19:34] LABS: MANUAL DIFF FLAG NO
[2023-05-27 19:36] LABS: Basophils Percent Auto 0.1 % (0-2); Eosinophils Absolute Auto 0.1 X10*3/uL (0.0-0.4); Eosinophils Percent Auto 0.7 % (0-4); Hematocrit 38.1 % (37.0-47.0); Hemoglobin 12.5 g/dl (12.0-16.0); Imm Gran Abs Auto 0.05 X10*3/uL (0.00-0.03); Imm Gran Pct Auto 0.6 % (0.0-0.4); Lymphocytes Absolute Auto 1.4 X10*3/uL (1.2-4.9); Lymphocytes Percent Auto 16.7 % (20-40); Mean Corpuscular HGB Conc 32.8 g/dl (31.0-35.0); Mean Corpuscular Hemoglobin 29.8 pg (27.0-33.0); Mean Corpuscular Volume 90.9 fL (80.0-98.0); Mean Platelet Volume 10.2 fL (9.4-12.3); Monocytes Absolute Auto 0.9 X10*3/uL (0.1-1.2); Neutrophils Absolute Auto 6.1 x10*3/uL (2.0-8.3); Neutrophils Percent Auto 71.9 % (45-73); Platelet Count 198 X10*3/uL (160-400); Red Blood Count 4.19 X10*6/uL (4.20-5.50); White Blood Count 8.5 X10*3/uL (4.8-10.8)
[2023-05-27 19:42] LABS: INTERNATIONAL NORM RATIO 0.9 (0.9-1.1); Prothrombin Time 11.5 SEC (11.1-13.3)
[2023-05-27 19:49] LABS: Alanine Aminotransferase 7 U/L (0-31); Albumin Level 3.5 g/dL (3.5-5.0); Alkaline Phosphatase 65 U/L (39-117); Anion Gap 13 (12-20); Aspartate Amino Transferase 13 U/L (5-31); Bilirubin Total 0.5 mg/dL (0.0-1.0); Blood Urea Nitrogen 17 mg/dL (9-16); Calcium 8.5 mg/dL (8.4-10.2); Carbon Dioxide 22 mmol/L (22-29); Chloride 107 mmol/L (96-108); Creatinine Clr Calc Pharmacy 57.3; Estimated Glomerular Filt Rate > 60; Glucose Random 126 mg/dL (60-115); Potassium 3.8 mmol/L (3.3-5.1); Sodium 138 mmol/L (135-145); Total Protein 5.7 g/dL (6.5-8.0)
[2023-05-27] MEDS: 0.9 % Sodium Chloride 1,000 ML 75 ML IVCONT (20:22)
--- NOTE | 2023-05-27 20:27 | PC.NURSE ---
Per Dr Real, C-Collar is cleared and removed.
[2023-05-27] MEDS: Ketorolac Tromethamine 30 MG/ML VIAL 15 MG IVPUSH (20:31)
--- NOTE | 2023-05-27 20:41 | PM.IMHP ---
History of Present Illness Date of Service: 05/27/23 Attending physician on admission: Nicholas Holm Chief Complaint: Mechanical fall at home with right hip pain Pt is an 82-year-old female with a PMH significant for?frontotemporal dementia, HLD, neurogenic bladder, and GERD who presents to the ED for evaluation of right hip pain after suffering an unwitnessed fall at home. ?Patient with [id number] frontotemporal dementia at baseline, lives with her in independent living at [facility] in [place]. 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 has been very weak lately and spending most time in bed. Patient was apparently in the kitchen when she had an unwitnessed fall while getting dinner ready. Patient apparently told ED clinician that she tripped over something and fell backwards landing on her right hip and also hitting her head but did not lose consciousness. At time of current interview patient was unable to recall events preceding her fall, but realized she did have right hip pain. Pt otherwise had no acute medical complaints. Denies headache. No chest pain/pressure, palpitations. Denies SOB. Of note, patient has a long history of frequent falls; family reports she has fallen around once a month for the past few years. Patient on aspirin, but not on chronic blood thinners. 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 Patient's daughter Renetta Herron is one of her healthcare proxies and would like to be updated about patient's progress at [phone]. In the ED pt was hypertensive up to 173/61, otherwise vitals WNL. Labs were grossly unremarkable with no leukocytosis, anemia, or electrolyte abnormalities. CXR showed no cardiopulmonary process. Hip and pelvis x-ray showed comminuted intertrochanteric fracture of the right femur without dislocation. CT of head found no acute intracranial abnormality. CT of cervical spine found no evidence of cervical spine fracture or traumatic malalignment, but did show 2.3 cm right thyroid nodule with recommendation for further assessment with thyroid ultrasound. EKG demonstrated normal sinus rhythm without evidence of ST elevations or depressions. Pt was treated with IVF and ketorolac. ED physicians contacted Orthopedics who plan on surgical intervention in the morning. Pt will be admitted to the hospital for treatment and further evaluation of right hip fracture secondary to likely mechanical fall at home. Review of Systems Review of Systems: Right hip pain Patient otherwise has no acute medical complaints at this time [facility] Medical History (Updated 05/27/23 @ 22:11 by NINI Staton) Frontotemporal dementia Medicare annual wellness visit, subsequent Post-menopausal Nocturia Weak urinary stream Left tibial fracture Vitamin D deficiency Neurogenic bladder GERD (gastroesophageal reflux disease) Esophageal stricture Hypercholesterolemia Hypertension Tubular adenoma of colon Family History Father Lung cancer Mother No problems noted. Surgical History S/P CONSUELO-BSO History of colonoscopy Skin cancer of face History of removal of cyst History of biopsy History of lumpectomy of right breast History of removal of ovarian cyst History of bladder surgery History of tonsillectomy and adenoidectomy Social History Housing: House Alcohol intake: current Alcohol intake frequency: does not drink Patient Tobacco Use Status: Never used Tobacco Cigarette Packs Per Day: 0 Cigarettes Per Day: 0 Years Smoked: 0 Smoked in Last 30 Days: No e-Cigarette/Vaping Use: Never Used Second Hand Smoke Exposure: No Use of substances other than those prescribed or required for medical reasons: No Advance Directives: No Advance Directives Information Provided: No service: No Current occupational status: retired Current occupational exposures/hazards: No Cognitive needs: No Hearing needs: Yes Vision needs: Yes Meds Allergies Allergy/AdvReac Type Severity Reaction Status Date / Time Sulfa (Sulfonamide Allergy Unknown UNKNOWN, Verified 02/27/23 14:38 Antibiotics) hives [SULFA (SULFONAMIDE ANTIBIOTICS)] Active Medications: Current Medications Sodium Chloride (Ns) 1,000 mls @ 75 mls/hr IVCONT .[id number] GEOVANNA Last Admin: 05/27/23 20:22 Dose: 75 mls/hr Home Medications Medication Instructions Recorded Confirmed Last Taken Type aspirin 500 mg tablet (Extra 500 mg PO Q6H PRN Pain 05/27/23 05/27/23 Unknown History Strength Pattie) cranberry extract-vitamin C 250 1 cap PO DAILY 05/27/23 05/27/23 Unknown History mg-60 mg capsule fluticasone propionate 50 1 spray intranasal DAILY PRN 05/27/23 05/27/23 Unknown History mcg/actuation nasal Congestion spray,suspension (Flonase Allergy Relief) simethicone 80 mg chewable tablet 80 mg PO 5XD PRN GI UPSET 05/27/23 05/27/23 Unknown History Physical Exam Vital Signs and Narrative: Vital Signs: Last Vital Signs Temp 98.4 F 05/27/23 19: Pulse 61 05/27/23 19:22 Resp 16 05/27/23 19:22 BP 173/61 H 05/27/23 19:22 Pulse Ox 96 05/27/23 19:22 O2 Del Method Room Air 05/27/23 19:22 BMI result Body Mass Index 19.7 Constitutional: Alert, pleasantly confused, in no acute distress. Mental Status: Oriented to person, place, and time, but not to situation. Eyes: Pupils are equal, round, and reactive to light. Head: Right superior parietal scalp swelling. Ear, Nose, and Throat: Oropharynx clear, mucous membranes moist. Ears and nose without deformities. Trachea midline. Respiratory: Clear to auscultation bilaterally. No wheezing, rales, or rhonchi. Cardiovascular: S1, S2 regular. No murmurs, rubs, or gallops. Gastrointestinal: Abdomen soft, non-tender, non-distended. Normal bowel sounds. Neurologic: Cranial nerves II-XII are grossly intact bilaterally. No focal neurological deficits. Moves all extremities spontaneously. Skin: Warm, dry. Musculoskeletal: No cyanosis or clubbing. Extremities: Areas of ecchymosis and superficial abrasions on right elbow. Right leg shortened and externally rotated. Psychiatric: Pleasantly confused. Results Labs 05/27/23 19:28 05/27/23 19:28 Labs: Laboratory Results - last 24 hr 05/27/23 19:28 MCV 90.9 MCH 29.8 MCHC 32.8 RDW 14.0 Plt Count 198 MPV 10.2 Immature Gran % (Auto) 0.6 H Neut % (Auto) 71.9 Lymph % (Auto) 16.7 L [place] % (Auto) 10.0 Eos % (Auto) 0.7 Baso % (Auto) 0.1 Lymph # (Auto) 1.4 [place] # (Auto) 0.9 Eos # (Auto) 0.1 Baso # (Auto) 0.0 Abs Immat Gran (auto) 0.05 H Absolute Neuts (auto) 6.1 Absolute Nucleated RBC 0.000 Nucleated RBC % (auto) 0.0 PT 11.5 INR 0.9 Anion Gap 13 Estim Creat Clear Calc 57.3 Estimated GFR > 60 Random Glucose 126 H Calcium 8.5 D Total Bilirubin 0.5 AST 13 ALT 7 Alkaline Phosphatase 65 Total Protein 5.7 L Albumin 3.5 Blood Type O Negative Antibody Screen NEGATIVE Imaging Radiologist's Impressions: Impressions Chest X-Ray 05/27/23 18:59 IMPRESSION: 1. Comminuted intertrochanteric fracture right femur without dislocation. 2. No acute cardiopulmonary process seen. 3. Mild dextroscoliosis dorsal spine with degenerative disc changes and spondylosis. Hip/Pelvis X-Ray 05/27/23 18:59 IMPRESSION: 1. Comminuted intertrochanteric fracture right femur without dislocation. 2. No acute cardiopulmonary process seen. 3. Mild dextroscoliosis dorsal spine with degenerative disc changes and spondylosis. Cervical Spine CT 05/27/23 19:40 IMPRESSION: 1. No acute intracranial abnormality. 2. No cervical spine fracture or traumatic malalignment. 3. 2.3 cm right thyroid nodule. Recommend further assessment with thyroid ultrasound. Head CT 05/27/23 19:40 IMPRESSION: 1. No acute intracranial abnormality. 2. No cervical spine fracture or traumatic malalignment. 3. 2.3 cm right thyroid nodule. Recommend further assessment with thyroid ultrasound. Assessment and Plan (1) Acute UTI: Status: Acute (2) Closed fracture of right hip: Status: Acute Plan Pt is an 82-year-old female with a PMH significant for?frontotemporal dementia, HLD, neurogenic bladder, and GERD who presents to the ED for evaluation of right hip pain after suffering an unwitnessed fall at home. ?Pt will be admitted to the hospital for treatment and further evaluation of right hip fracture secondary to likely mechanical fall at home. Right hip fracture X-ray of right hip shows comminuted intertrochanteric fracture of the right femur without dislocation Ortho consulted, plan on performing surgery in the morning Pain management: Morphine 2 mg NPO diet Hold aspirin, pneumatic boots for DVT prophylaxis Pt is intermediate risk for planned procedure given age and comorbidities RCRI score 0, no significant known cardiac history; EKG without significant ischemic changes No further workup indicated at this time UTI UA positive for UTI Does not meet sepsis criteria Will treat with ceftriaxone, started 05/27/[address] of cervical spine found a 2.3 cm right thyroid nodule Follow up outpatient for possible additional imaging with thyroid ultrasound Frontotemporal dementia Continue donepezil GERD Continue omeprazole Mood disorder Continue sertraline Neurogenic bladder Patient voids by straight cath twice a day Will place Erickson Continue tamsulosin HLD Continue statin Full Code Attending:?Dr. Ross Aragon DVT Prophylaxis: Pneumatic boots Pt will require a hospitalization of at least two nights for treatment of?acute right hip fracture. Patient will require surgical intervention and subsequent close monitoring given age and comorbidities. Quality Stroke Does the patient have a stroke diagnosis?: No VTE Prior VTE?: No VTE Risk Level:: Medical - moderate - high VTE Device Contraindication: N/A - Device Ordered VTE Drug Contraindication: Treatment Not Indicated
--- NOTE | 2023-05-27 20:58 | PHA.MEDREC ---
Pharmacy Consult ? Medication Reconciliation Pharmacy has completed the medication reconciliation. Spoke with patient's daughter Mariella Herron. She looked at patient bottles at home home to report medications. If any question, her phone number in [phone]. Dariana Díaz, TonieD
--- NOTE | 2023-05-27 21:07 | PC.NURSE ---
16Fr catheter inserted, pt tolerated insertion well. Pt output approx 350mL clear, yellow urine. Sample collected and sent.
[2023-05-27 21:14] LABS: Appearance Urine Turbid; Color Urine Dark Yellow; Glucose Urine UA Negative (Negative); Leukocyte Esterase Urine Small (1+) (Negative); Nitrite Urine Positive (Negative); PH 5.5 (5.0-9.0); UMIC TRIGGER UACC YES; Urine Blood Negative (Negative); Urine Ketones Trace mg/dL (Negative); Urine Protein Negative (Neg-Trace)
[2023-05-27 21:23] LABS: Bacteria Urine 4+ (None Seen); UACC Culture Trigger YES; WBC Urine 0-5 /HPF (0-5)
--- NOTE | 2023-05-27 21:25 | PC.NURSE ---
Daughter and HCP (Mariella Herron) left her phone number if anything may arise. [phone]
[2023-05-27 21:39] VITALS: BP 153/66; PULSE 65; RESP 16; TEMP 36.8; O2SAT 100
[2023-05-27] MEDS: cefTRIAXone sodium 1 GM in 0.9 % Sodium Chloride 50 ML IV (21:40)
[2023-05-27 21:46] LABS: Lactic Acid 1.3 mmol/L (0.5-2.0)
[2023-05-27] MEDS: Donepezil HCl 10 MG TABLET PO (22:28)
[2023-05-27] MEDS: Tamsulosin HCL 0.4 MG CAPSULE PO (22:28)
--- NOTE | 2023-05-27 22:45 | MHC.EDTECH ---
Patient was assisted unto bedpan to moved her bowels ,But did not do anything ,Patient daughter at bedside .
--- NOTE | 2023-05-27 23:22 | PC.NURSE ---
Report given to Sara SOLARES in overflow. Pt will be moved by tech.
[2023-05-27 23:25] VITALS: BP 143/70; PULSE 64; RESP 16; TEMP 36.7; O2SAT 95
[2023-05-28] VITALS (10 sets, daily range): BP systolic 123–185; BP diastolic 50–87; PULSE 58–78; RESP 14–18; TEMP 36.2–36.7; O2SAT 95–99; BMI 19.5
[2023-05-28] MEDS: Morphine Sulfate 2 MG/ML CARTRIDGE IVPUSH ×4 (01:11→18:21)
[2023-05-28] MEDS: Omeprazole 20 MG CAPSULE.DR PO (06:20)
--- NOTE | 2023-05-28 08:28 | PM.CNOR ---
History of Present Illness HPI Consult date: 05/28/23 Chief complaint: Right hip fracture Narrative: Pt is an 82-year-old female with a PMH significant for?frontotemporal dementia, HLD, neurogenic bladder, and GERD who presents to the ED for evaluation of right hip pain after suffering an unwitnessed fall at home. She, lives with her in independent living at [facility] in [place]. 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 She does remember she fell at home, claims she is here for her urine she was found to have a UTI while in the ED which she is being treated for. Xrays in the ED showed a right intertrochanteric fx of the right femur . Pt was admitted to the hospital for treatment and further evaluation of right hip fracture secondary to likely mechanical fall at home. Orthopedics was contacted for orthopedic surgical planning Review of Systems Review of Systems: per [facility] Past Medical History Medical History (Updated 05/28/23 @ 09:06 by Dev Aguilar PA-C) Frontotemporal dementia Medicare annual wellness visit, subsequent Post-menopausal Nocturia Weak urinary stream Left tibial fracture Vitamin D deficiency Neurogenic bladder GERD (gastroesophageal reflux disease) Esophageal stricture Hypercholesterolemia Hypertension Tubular adenoma of colon Family History Family History Father Lung cancer Mother No problems noted. Surgical History Surgical History S/P CONSUELO-BSO History of colonoscopy Skin cancer of face History of removal of cyst History of biopsy History of lumpectomy of right breast History of removal of ovarian cyst History of bladder surgery History of tonsillectomy and adenoidectomy Social History Social History Household Members: Spouse Housing: Apartment Do you presently have visiting nurse or other home services: No Alcohol intake: current Alcohol intake frequency: does not drink Patient Tobacco Use Status: Never used Tobacco Cigarette Packs Per Day: 0 Cigarettes Per Day: 0 Years Smoked: 0 Smoked in Last 30 Days: No e-Cigarette/Vaping Use: Never Used Second Hand Smoke Exposure: No Use of substances other than those prescribed or required for medical reasons: No Currently Displaying Signs/Symptoms of Drug Intoxication Withdrawal: No Any prior treatment program specific to substance use: No Have you been hit, kicked, punched, or otherwise hurt by someone within the past year? If so, by whom?: No Do you feel safe in your current relationship?: Yes Is there a partner from a previous relationship who is making you feel unsafe now?: No Are you made to feel afraid or neglected: No Advance Directives: No Advance Directives Information Provided: No Do you have thoughts of harming others: None Do you have a plan to hurt others: No Plan Recently lost weight without trying: No Nutrition Risks: No Nutritional Risk Patient : No : No Poor oral hygiene: No service: No Current occupational status: retired Current occupational exposures/hazards: No Cognitive needs: No Hearing needs: Yes Vision needs: Yes Meds Allergies Allergy/AdvReac Type Severity Reaction Status Date / Time Sulfa (Sulfonamide Allergy Unknown UNKNOWN, Verified 02/27/23 14:38 Antibiotics) hives [SULFA (SULFONAMIDE ANTIBIOTICS)] Active Medications: Current Medications Acetaminophen (Acetaminophen 325 Mg Tablet) 650 mg PO Q6H PRN PRN Reason: Pain, Mild (Pain Scale 1-3) Atorvastatin Calcium (Atorvastatin Calcium 10 Mg Tablet) 5 mg PO BEDTIME [facility] Benzonatate (Benzonatate 100 Mg Capsule) 100 mg PO TID PRN PRN Reason: Cough Cyanocobalamin (Cyanocobalamin (Vitamin B-12) 1,000 Mcg Tablet) 1,000 mcg PO DAILY [facility] Docusate Sodium (Docusate Sodium 100 Mg Capsule) 100 mg PO DAILY PRN PRN Reason: Constipation Donepezil HCl (Donepezil Hcl 10 Mg Tablet) 10 mg PO BEDTIME [facility] Last Admin: 05/27/23 22:28 Dose: 10 mg Fluticasone Propionate (Fluticasone Propionate Nasal 16 Gm [place]) 1 spray NOSTRIL-B DAILY PRN PRN Reason: Congestion Folic Acid (Folic Acid 1 Mg Tablet) 1 mg PO DAILY [facility] Sodium Chloride (Ns) 1,000 mls @ 75 mls/hr IVCONT .[id number] [facility] Last Infusion: 05/27/23 22:35 Dose: Infused Ceftriaxone Sodium 1 gm/ (Sodium Chloride) 50 mls @ 100 mls/hr IV Q24H [facility] Loratadine (Loratadine 10 Mg Tablet) 10 mg PO DAILY [facility] Melatonin (Melatonin 3 Mg Tablet) 6 mg PO BEDTIME PRN PRN Reason: Insomnia Morphine Sulfate (Morphine Sulfate 2 Mg/Ml Cartridge) 2 mg IVPUSH Q4H PRN; Protocol PRN Reason: Pain, Severe (Pain Scale 7-10) Last Admin: 05/28/23 06:27 Dose: 2 mg Omeprazole (Omeprazole 20 Mg Capsule.Dr) 20 mg PO DAILY@0630 [facility] Last Admin: 05/28/23 06:20 Dose: 20 mg Sertraline HCl (Sertraline Hcl 25 Mg Tablet) 25 mg PO DAILY [facility] Simethicone (Simethicone 80 Mg Tab.Chew) 80 mg PO 5XD PRN PRN Reason: GI UPSET Sodium Chloride (Sodium Chloride 0.65 % Nasal 44 Ml Sprbtl) 1 spray NOSTRIL-B Q4H PRN PRN Reason: for congestion Sodium Chloride (0.9 % Sodium Chloride Flush 3 Ml Syringe) 3 ml IVFLUSH QSHIFT [facility] Last Admin: 05/27/23 23:01 Dose: Not Given Tamsulosin HCl (Tamsulosin Hcl 0.4 Mg Capsule) 0.4 mg PO BEDTIME [facility] Last Admin: 05/27/23 22:28 Dose: 0.4 mg Vitamin D (Cholecalciferol (Vitamin D3) 25 Mcg Tablet) 50 mcg PO DAILY [facility] Home Medications Medication Instructions Recorded Confirmed Last Taken Type aspirin 500 mg tablet (Extra 500 mg PO Q6H PRN Pain 05/27/23 05/27/23 Unknown History Strength Pattie) cranberry extract-vitamin C 250 1 cap PO DAILY 05/27/23 05/27/23 Unknown History mg-60 mg capsule fluticasone propionate 50 1 spray intranasal DAILY PRN 05/27/23 05/27/23 Unknown History mcg/actuation nasal Congestion spray,suspension (Flonase Allergy Relief) simethicone 80 mg chewable tablet 80 mg PO 5XD PRN GI UPSET 05/27/23 05/27/23 Unknown History Physical Exam Vital Signs: Vital Signs: Last Vital Signs Temp 97.3 F 05/28/23 07:41 Pulse 58 05/28/23 07:41 Resp 18 05/28/23 07:41 BP 125/59 L 05/28/23 07:41 Pulse Ox 99 05/28/23 07:41 O2 Del Method Room Air 05/28/23 07:41 BMI result Body Mass Index 19.5 Const: General: cooperative, healthy appearing, comfortable, no acute distress, well developed and alert Orientation/consciousness: patient oriented x3 HEENT: Head: Yes normal to inspection, Yes normocephalic and Yes atraumatic Eyes: General: appearance normal, both eyes and all related structures Neck: Neck: Yes normal visual inspection and Yes no lymphadenopathy Resp: Effort & Inspection: normal respiratory effort and able to speak in complete sentences Cardio: Rate: regular rate Peripheral pulses: Peripheral pulses 2+ throughout GI: Inspection: Yes normal to inspection Palpation (GI): Soft to palpation Skin: General skin exam: no rashes or lesions noted Neuro: General: patient oriented x3 Extrem: Other: right hip skin intact, pain with log roll . Unable to perform SLR. She is able to dorsi and plantar flex the foot. NVI Psych: Appearance: grossly normal Mental Status: mental status grossly normal Results Labs 05/27/23 19:28 05/27/23 19:28 Labs: Abnormal lab results 05/27/23 05/27/23 Range/Units 19:28 21:05 RBC 4.19 L (4.20-5.50) X10*6/uL Immature Gran % (Auto) 0.6 H (0.0-0.4) % Lymph % (Auto) 16.7 L (20-40) % Abs Immat Gran (auto) 0.05 H (0.00-0.03) X10*3/uL BUN 17 H (9-16) mg/dL Random Glucose 126 H (60-115) mg/dL Total Protein 5.7 L (6.5-8.0) g/dL Urine Nitrite Positive H (Negative) Ur Leukocyte Esterase Small (1+) H (Negative) Urine RBC 3-5 H (0-2) /HPF H & H 05/27/23 Range/Units 19:28 Hgb 12.5 (12.0-16.0) g/dl Hct 38.1 (37.0-47.0) % Coagulation 05/27/23 Range/Units 19:28 INR 0.9 (0.9-1.1) All other labs normal. Assessment and Plan (1) Closed fracture of right hip: Qualifiers: Encounter type: initial encounter Qualified Code(s): S72.001A - Fracture of unspecified part of neck of right femur, initial encounter for closed fracture Status: Acute Plan I discussed the case with Dr Mcghee and explained the extent of the injury to the patient and options available which include surgical intervention. I explained the procedure in detail along with the length of recovery and rehab course. I explained the risk, benefits and alternatives. Risk including, but not limited to infection, blood clots, bleeding, non union or malunion and nerve/tissue damage to surrounding areas. I answered all their questions and with their understanding they have consented to move forward with Operative Fixation of the RIght hip . The patient was T&S, med clearance obtained and remains NPO. Patient's daughter Renetta Herron is one of her healthcare proxies and would like to be updated about patient's progress at [phone]. Procedures Date of Service Date of Service: 05/28/23
[2023-05-28] MEDS: Sertraline HCL 25 MG TABLET PO (09:15)
[2023-05-28] MEDS: Loratadine 10 MG TABLET PO (09:15)
[2023-05-28] MEDS: Cyanocobalamin (Vitamin B-12) 1,000 MCG TABLET 1000 MCG PO (09:15)
[2023-05-28] MEDS: Folic Acid 1 MG TABLET PO (09:15)
[2023-05-28] MEDS: Cholecalciferol (Vitamin D3) 25 MCG TABLET 50 MCG PO (09:15)
[2023-05-28 09:45] LABS: Hematocrit 32.1 % (37.0-47.0); Hemoglobin 10.5 g/dl (12.0-16.0); Mean Corpuscular HGB Conc 32.7 g/dl (31.0-35.0); Mean Corpuscular Hemoglobin 30.3 pg (27.0-33.0); Mean Corpuscular Volume 92.8 fL (80.0-98.0); Mean Platelet Volume 11.1 fL (9.4-12.3); Platelet Count 180 X10*3/uL (160-400); Red Blood Count 3.46 X10*6/uL (4.20-5.50); Red Cell Distribution Width 14.2 % (11.0-16.0); White Blood Count 7.2 X10*3/uL (4.8-10.8)
[2023-05-28 09:59] LABS: Anion Gap 11 (12-20); Blood Urea Nitrogen 20 mg/dL (9-16); Calcium 7.9 mg/dL (8.4-10.2); Carbon Dioxide 25 mmol/L (22-29); Chloride 108 mmol/L (96-108); Creatinine Clr Calc Pharmacy 65.8; Estimated Glomerular Filt Rate > 60; Glucose Random 89 mg/dL (60-115); Potassium 3.5 mmol/L (3.3-5.1); Sodium 140 mmol/L (135-145)
--- NOTE | 2023-05-28 10:44 | P.PNIM_ITS ---
Subjective Subjective Date of Service: 05/28/23 Interval History: R hip pain controlled Mildly confused Son at bedside Review of Systems Review of Systems: Yes all other systems are reviewed and are negative Physical Exam 2 Vital Signs: Vital Signs: Last Vital Signs Temp 97.3 F 05/28/23 07:41 Pulse 58 05/28/23 07:41 Resp 18 05/28/23 07:41 BP 125/59 L 05/28/23 07:41 Pulse Ox 99 05/28/23 07:41 O2 Del Method Room Air 05/28/23 07:41 BMI result Body Mass Index 19.5 Gen: in no acute distress HEENT: sclera anicteric, moist mucus membranes Neck: supple Lungs: clear to auscultation bilaterally Heart: regular rate and rhythm, no murmurs Abd: soft, non-tender, non-distended Ext: no edema, RLE shortened + externally rotated Skin: warm/well-perfused Neuro: alert and oriented to self/place, no focal deficit Psych: appropriate affect Objective Data Active Medications Acetaminophen (Acetaminophen 325 Mg Tablet) 650 mg PO Q6H PRN PRN Reason: Pain, Mild (Pain Scale 1-3) Atorvastatin Calcium (Atorvastatin Calcium 10 Mg Tablet) 5 mg PO BEDTIME [facility] Benzonatate (Benzonatate 100 Mg Capsule) 100 mg PO TID PRN PRN Reason: Cough Cyanocobalamin (Cyanocobalamin (Vitamin B-12) 1,000 Mcg Tablet) 1,000 mcg PO DAILY [facility] Last Admin: 05/28/23 09:15 Dose: 1,000 mcg Documented By: TONY Docusate Sodium (Docusate Sodium 100 Mg Capsule) 100 mg PO DAILY PRN PRN Reason: Constipation Donepezil HCl (Donepezil Hcl 10 Mg Tablet) 10 mg PO BEDTIME [facility] Last Admin: 05/27/23 22:28 Dose: 10 mg Documented By: ALEKSANDAR Fluticasone Propionate (Fluticasone Propionate Nasal 16 Gm [place]) 1 spray NOSTRIL-B DAILY PRN PRN Reason: Congestion Folic Acid (Folic Acid 1 Mg Tablet) 1 mg PO DAILY [facility] Last Admin: 05/28/23 09:15 Dose: 1 mg Documented By: TONY Sodium Chloride (Ns) 1,000 mls @ 75 mls/hr IVCONT .[id number] [facility] Last Infusion: 05/27/23 22:35 Dose: Infused Documented By: ALEKSANDAR Ceftriaxone Sodium 1 gm/ (Sodium Chloride) 50 mls @ 100 mls/hr IV Q24H [facility] Loratadine (Loratadine 10 Mg Tablet) 10 mg PO DAILY [facility] Last Admin: 05/28/23 09:15 Dose: 10 mg Documented By: TONY Melatonin (Melatonin 3 Mg Tablet) 6 mg PO BEDTIME PRN PRN Reason: Insomnia Morphine Sulfate (Morphine Sulfate 2 Mg/Ml Cartridge) 2 mg IVPUSH Q4H PRN; Protocol PRN Reason: Pain, Severe (Pain Scale 7-10) Last Admin: 05/28/23 06:27 Dose: 2 mg Documented By: NICKOLAS Omeprazole (Omeprazole 20 Mg Capsule.) 20 mg PO DAILY@0630 [facility] Last Admin: 05/28/23 06:20 Dose: 20 mg Documented By: NICKOLAS Sertraline HCl (Sertraline Hcl 25 Mg Tablet) 25 mg PO DAILY [facility] Last Admin: 05/28/23 09:15 Dose: 25 mg Documented By: TONY Simethicone (Simethicone 80 Mg Tab.Chew) 80 mg PO 5XD PRN PRN Reason: GI UPSET Sodium Chloride (Sodium Chloride 0.65 % Nasal 44 Ml Sprbtl) 1 spray NOSTRIL-B Q4H PRN PRN Reason: for congestion Sodium Chloride (0.9 % Sodium Chloride Flush 3 Ml Syringe) 3 ml IVFLUSH QSHIFT [facility] Last Admin: 05/28/23 09:16 Dose: Not Given Documented By: TONY Non-Admin Reason: IV Running Tamsulosin HCl (Tamsulosin Hcl 0.4 Mg Capsule) 0.4 mg PO BEDTIME [facility] Last Admin: 05/27/23 22:28 Dose: 0.4 mg Documented By: ALEKSANDAR Vitamin D (Cholecalciferol (Vitamin D3) 25 Mcg Tablet) 50 mcg PO DAILY [facility] Last Admin: 05/28/23 09:15 Dose: 50 mcg Documented By: TONY Labs 05/28/23 08:12 05/28/23 08:12 Labs: Laboratory Results - last 24 hr 05/27/23 05/27/23 05/27/23 19:28 21:05 21:32 MCV 90.9 MCH 29.8 MCHC 32.8 RDW 14.0 Plt Count 198 MPV 10.2 Immature Gran % (Auto) 0.6 H Neut % (Auto) 71.9 Lymph % (Auto) 16.7 L [place] % (Auto) 10.0 Eos % (Auto) 0.7 Baso % (Auto) 0.1 Lymph # (Auto) 1.4 [place] # (Auto) 0.9 Eos # (Auto) 0.1 Baso # (Auto) 0.0 Abs Immat Gran (auto) 0.05 H Absolute Neuts (auto) 6.1 Absolute Nucleated RBC 0.000 Nucleated RBC % (auto) 0.0 PT 11.5 INR 0.9 Anion Gap 13 Estim Creat Clear Calc 57.3 Estimated GFR > 60 Random Glucose 126 H Lactic Acid 1.3 Calcium 8.5 D Total Bilirubin 0.5 AST 13 ALT 7 Alkaline Phosphatase 65 Total Protein 5.7 L Albumin 3.5 Urine Color Dark Yellow Urine Appearance Turbid Urine pH 5.5 Ur Specific [place] 1.020 Urine Protein Negative Urine Glucose (UA) Negative Urine Ketones Trace Urine Blood Negative Urine Nitrite Positive H Ur Leukocyte Esterase Small (1+) H Urine RBC 3-5 H Urine WBC 0-5 Ur Squamous Epith Cells 6-10 Urine Bacteria 4+ Hyaline Casts 3-5 Blood Type O Negative Antibody Screen NEGATIVE 05/28/23 08:12 MCV 92.8 MCH 30.3 MCHC 32.7 RDW 14.2 Plt Count 180 MPV 11.1 Immature Gran % (Auto) Neut % (Auto) Lymph % (Auto) [place] % (Auto) Eos % (Auto) Baso % (Auto) Lymph # (Auto) [place] # (Auto) Eos # (Auto) Baso # (Auto) Abs Immat Gran (auto) Absolute Neuts (auto) Absolute Nucleated RBC 0.000 Nucleated RBC % (auto) 0.0 PT INR Anion Gap 11 L Estim Creat Clear Calc 65.8 Estimated GFR > 60 Random Glucose 89 Lactic Acid Calcium 7.9 L D Total Bilirubin AST ALT Alkaline Phosphatase Total Protein Albumin Urine Color Urine Appearance Urine pH Ur Specific [place] Urine Protein Urine Glucose (UA) Urine Ketones Urine Blood Urine Nitrite Ur Leukocyte Esterase Urine RBC Urine WBC Ur Squamous Epith Cells Urine Bacteria Hyaline Casts Blood Type Antibody Screen Microbiology Microbiology Results: Microbiology 05/27/23 Unknown Urine Culture - Preliminary Urine Catheterized - Straight Catheter Culture too young to evaluate. Assessment and Plan (1) Closed fracture of right hip: Status: Acute Plan d2 82yo F with FTD, HLD, neurogenic bladder, GERD sustained unwitnessed fall at home, found to have R hip fx comminuted intertrochanteric fx R femur - Ortho consulted, plan operative fixation today, will need STR and extended VTE ppx afterwards, no further preoperative workup needed [intermediate-risk for procedure] UTI - ceftriaxone 05/27-, UCx pending incidental R thyroid nodule, 2.3 cm - outpt thyroid US FTD - donepezil GERD - omeprazole mood disorder - sertraline neurogenic bladder - bid straight cath HLD - statin VTE ppx - SCDs dispo - STR In my clinical judgment, the patient requires continued inpatient hospitalization for the following reasons: operative fixation Total time managing care of this patient today: 35 minutes. Quality Stroke Does the patient have a stroke diagnosis?: No VTE Prior VTE?: No VTE Risk Level:: Medical - moderate - high VTE Device Contraindication: N/A - Device Ordered VTE Drug Contraindication: Treatment Not Indicated
[2023-05-28] MEDS: 0.9 % Sodium Chloride 1,000 ML 75 ML IVCONT (10:59)
--- NOTE | 2023-05-28 14:31 | HO.ANESPROP2 ---
HPI - Anesthesia Eval Consult details Narrative: 82 yo female patient with Right hip non-displaced comminuted intertrochanteric fracture. For IM nailing PMFSH Active Problems Active Problems: All Active Problems (Updated 05/28/23 @ 14:35 by Savana Lawrence MD) Acute UTI (Acute) Right thyroid nodule (Acute) Contusion of scalp (Acute) Closed fracture of right hip (Acute) Fall (Acute) Vascular dementia (Acute). Answered al questions appropriately Bilateral shoulder pain (Acute) Urinary retention with incomplete bladder emptying (Acute) Third degree uterine prolapse (Acute) Seasonal allergies (Acute) Pansinusitis (Acute) Female cystocele (Acute) Vaginal prolapse (Acute) Recurrent UTI (urinary tract infection) (Acute) Weak urinary stream (Acute) Onychomycosis (Acute) Impacted cerumen of both ears (Acute) Shoulder pain, right (Acute) Low back pain (Acute) Feeling of incomplete bladder emptying (Acute) Hypotonic neurogenic bladder (Acute) GERD (gastroesophageal reflux disease) (Acute) Hypercholesterolemia (Acute) Mild confusion Scar in Right supraclavicular area ?surgery Past Medical History Medical History Frontotemporal dementia Medicare annual wellness visit, subsequent Post-menopausal Nocturia Weak urinary stream Left tibial fracture Vitamin D deficiency Neurogenic bladder GERD (gastroesophageal reflux disease) Esophageal stricture Hypercholesterolemia Hypertension Tubular adenoma of colon Family History Family History Father Lung cancer Mother No problems noted. Family history of problems with anesthesia: No Surgical History Surgical History S/P CONSUELO-BSO History of colonoscopy Skin cancer of face History of removal of cyst History of biopsy History of lumpectomy of right breast History of removal of ovarian cyst History of bladder surgery History of tonsillectomy and adenoidectomy History of Problems with Anesthesia: No Social History Social History Household Members: Spouse Housing: Apartment Do you presently have visiting nurse or other home services: No Alcohol intake: current Alcohol intake frequency: does not drink Patient Tobacco Use Status: Never used Tobacco Cigarette Packs Per Day: 0 Cigarettes Per Day: 0 Years Smoked: 0 Smoked in Last 30 Days: No e-Cigarette/Vaping Use: Never Used Second Hand Smoke Exposure: No Use of substances other than those prescribed or required for medical reasons: No Currently Displaying Signs/Symptoms of Drug Intoxication Withdrawal: No Any prior treatment program specific to substance use: No Have you been hit, kicked, punched, or otherwise hurt by someone within the past year? If so, by whom?: No Do you feel safe in your current relationship?: Yes Is there a partner from a previous relationship who is making you feel unsafe now?: No Are you made to feel afraid or neglected: No Are you DNR?: No Advance Directives: No Advance Directives Information Provided: No Advance Directives on File: No Do you have thoughts of harming others: None Do you have a plan to hurt others: No Plan Recently lost weight without trying: No Nutrition Risks: No Nutritional Risk Patient : No : No Poor oral hygiene: No service: No Current occupational status: retired Current occupational exposures/hazards: No Cognitive needs: No Hearing needs: Yes Vision needs: Yes Meds Allergies Allergy/AdvReac Type Severity Reaction Status Date / Time Sulfa (Sulfonamide Allergy Unknown UNKNOWN, Verified 02/27/23 14:38 Antibiotics) hives [SULFA (SULFONAMIDE ANTIBIOTICS)] Active Medications: Current Medications Acetaminophen (Acetaminophen 325 Mg Tablet) 650 mg PO Q6H PRN PRN Reason: Pain, Mild (Pain Scale 1-3) Atorvastatin Calcium (Atorvastatin Calcium 10 Mg Tablet) 5 mg PO BEDTIME [facility] Benzonatate (Benzonatate 100 Mg Capsule) 100 mg PO TID PRN PRN Reason: Cough Cyanocobalamin (Cyanocobalamin (Vitamin B-12) 1,000 Mcg Tablet) 1,000 mcg PO DAILY [facility] Last Admin: 05/28/23 09:15 Dose: 1,000 mcg Docusate Sodium (Docusate Sodium 100 Mg Capsule) 100 mg PO DAILY PRN PRN Reason: Constipation Donepezil HCl (Donepezil Hcl 10 Mg Tablet) 10 mg PO BEDTIME [facility] Last Admin: 05/27/23 22:28 Dose: 10 mg Fluticasone Propionate (Fluticasone Propionate Nasal 16 Gm [place]) 1 spray NOSTRIL-B DAILY PRN PRN Reason: Congestion Folic Acid (Folic Acid 1 Mg Tablet) 1 mg PO DAILY [facility] Last Admin: 05/28/23 09:15 Dose: 1 mg Sodium Chloride (Ns) 1,000 mls @ 75 mls/hr IVCONT .[id number] [facility] Last Admin: 05/28/23 10:59 Dose: 75 mls/hr Ceftriaxone Sodium 1 gm/ (Sodium Chloride) 50 mls @ 100 mls/hr IV Q24H [facility] Loratadine (Loratadine 10 Mg Tablet) 10 mg PO DAILY [facility] Last Admin: 05/28/23 09:15 Dose: 10 mg Melatonin (Melatonin 3 Mg Tablet) 6 mg PO BEDTIME PRN PRN Reason: Insomnia Morphine Sulfate (Morphine Sulfate 2 Mg/Ml Cartridge) 2 mg IVPUSH Q4H PRN; Protocol PRN Reason: Pain, Severe (Pain Scale 7-10) Last Admin: 05/28/23 10:56 Dose: 2 mg Omeprazole (Omeprazole 20 Mg Capsule.Dr) 20 mg PO DAILY@0630 [facility] Last Admin: 05/28/23 06:20 Dose: 20 mg Sertraline HCl (Sertraline Hcl 25 Mg Tablet) 25 mg PO DAILY [facility] Last Admin: 05/28/23 09:15 Dose: 25 mg Simethicone (Simethicone 80 Mg Tab.Chew) 80 mg PO 5XD PRN PRN Reason: GI UPSET Sodium Chloride (Sodium Chloride 0.65 % Nasal 44 Ml Sprbtl) 1 spray NOSTRIL-B Q4H PRN PRN Reason: for congestion Sodium Chloride (0.9 % Sodium Chloride Flush 3 Ml Syringe) 3 ml IVFLUSH QSHIFT [facility] Last Admin: 05/28/23 13:16 Dose: Not Given Tamsulosin HCl (Tamsulosin Hcl 0.4 Mg Capsule) 0.4 mg PO BEDTIME [facility] Last Admin: 05/27/23 22:28 Dose: 0.4 mg Vitamin D (Cholecalciferol (Vitamin D3) 25 Mcg Tablet) 50 mcg PO DAILY [facility] Last Admin: 05/28/23 09:15 Dose: 50 mcg Home Medications Medication Instructions Recorded Confirmed Last Taken Type aspirin 500 mg tablet (Extra 500 mg PO Q6H PRN Pain 05/27/23 05/27/23 Unknown History Strength Pattie) cranberry extract-vitamin C 250 1 cap PO DAILY 05/27/23 05/27/23 Unknown History mg-60 mg capsule fluticasone propionate 50 1 spray intranasal DAILY PRN 05/27/23 05/27/23 Unknown History mcg/actuation nasal Congestion spray,suspension (Flonase Allergy Relief) simethicone 80 mg chewable tablet 80 mg PO 5XD PRN GI UPSET 05/27/23 05/27/23 Unknown History Exam Height,Weight and Vital Signs: Height 5 ft 6 in Weight 54.8 kg Last Vital Signs Temp 98.0 F 05/28/23 14:17 Pulse 64 05/28/23 14:17 Resp 16 05/28/23 14:17 BP 123/87 05/28/23 14:17 Pulse Ox 98 05/28/23 14:17 O2 Del Method Room Air 05/28/23 14:17 Pertinent Lab Results Pertinent Lab Results: Laboratory Tests 05/27/23 05/27/23 05/27/23 19:28 21:05 21:32 WBC 8.5 RBC 4.19 L Hgb 12.5 Hct 38.1 MCV 90.9 MCH 29.8 MCHC 32.8 RDW 14.0 Plt Count 198 MPV 10.2 Immature Gran % (Auto) 0.6 H Neut % (Auto) 71.9 Lymph % (Auto) 16.7 L [place] % (Auto) 10.0 Eos % (Auto) 0.7 Baso % (Auto) 0.1 Lymph # (Auto) 1.4 [place] # (Auto) 0.9 Eos # (Auto) 0.1 Baso # (Auto) 0.0 Abs Immat Gran (auto) 0.05 H Absolute Neuts (auto) 6.1 Absolute Nucleated RBC 0.000 Nucleated RBC % (auto) 0.0 PT 11.5 INR 0.9 Sodium 138 Potassium 3.8 Chloride 107 Carbon Dioxide 22 Anion Gap 13 BUN 17 H Creatinine 0.65 Estim Creat Clear Calc 57.3 Estimated GFR > 60 Random Glucose 126 H Lactic Acid 1.3 Calcium 8.5 D Total Bilirubin 0.5 AST 13 ALT 7 Alkaline Phosphatase 65 Total Protein 5.7 L Albumin 3.5 Urine Color Dark Yellow Urine Appearance Turbid Urine pH 5.5 Ur Specific [place] 1.020 Urine Protein Negative Urine Glucose (UA) Negative Urine Ketones Trace Urine Blood Negative Urine Nitrite Positive H Ur Leukocyte Esterase Small (1+) H Urine RBC 3-5 H Urine WBC 0-5 Ur Squamous Epith Cells 6-10 Urine Bacteria 4+ Hyaline Casts 3-5 Blood Type O Negative Antibody Screen NEGATIVE 05/28/23 08:12 WBC 7.2 RBC 3.46 L Hgb 10.5 L Hct 32.1 L MCV 92.8 MCH 30.3 MCHC 32.7 RDW 14.2 Plt Count 180 MPV 11.1 Immature Gran % (Auto) Neut % (Auto) Lymph % (Auto) [place] % (Auto) Eos % (Auto) Baso % (Auto) Lymph # (Auto) [place] # (Auto) Eos # (Auto) Baso # (Auto) Abs Immat Gran (auto) Absolute Neuts (auto) Absolute Nucleated RBC 0.000 Nucleated RBC % (auto) 0.0 PT INR Sodium 140 Potassium 3.5 Chloride 108 Carbon Dioxide 25 Anion Gap 11 L BUN 20 H Creatinine 0.56 Estim Creat Clear Calc 65.8 Estimated GFR > 60 Random Glucose 89 Lactic Acid Calcium 7.9 L D Total Bilirubin AST ALT Alkaline Phosphatase Total Protein Albumin Urine Color Urine Appearance Urine pH Ur Specific [place] Urine Protein Urine Glucose (UA) Urine Ketones Urine Blood Urine Nitrite Ur Leukocyte Esterase Urine RBC Urine WBC Ur Squamous Epith Cells Urine Bacteria Hyaline Casts Blood Type Antibody Screen Airway Mallampati Class: II TM Dist: >3cm Neck ROM: Full Loose/Missing/Broken Teeth: No (Denies broken, loose teeth) Heart: RRR Lungs: CTAB Assessment and Plan Assessment Anesthesia Assessment: Anesthesia Plan Discussed and Chart Reviewed Final Anesthetic Review Family History of Problems with Anesthesia: No History of Problems with Anesthesia: No NPO: Yes ASA Class: III and Emergency Final Preanesthetic Review: No Changes in Pt Med Stat, Meds/Allgs Chart Reviewed, Consent Obtained/Reviewed and Anes Risks/Benef Reviewed Patient Risk: Intermediate Procedure Risk: Intermediate Assessment/Block/Sedation in SS: Assess/Block/Sedation-SS Anesthetic Plan Anesthetic Plan: GA Disposition: Standard PACU and Inp. Admit - Standard Bed
--- NOTE | 2023-05-28 15:55 | MHC.SHP ---
Pre-Procedural Eval Section A Date of Service: 05/28/23 The patient is an INPATIENT: Yes Changes since office visit: No Cold of Flu in the past 2 weeks, No New Medical Problems, No Changes in Medication and No Patient answered all questions The History & Physical has been completed within 30 days and I have reviewed it.: Yes Section B Chief Complaint: Right hip fracture Allergies: Allergies Allergy/AdvReac Type Severity Reaction Status Date / Time Sulfa (Sulfonamide Allergy Unknown UNKNOWN, Verified 02/27/23 14:38 Antibiotics) hives [SULFA (SULFONAMIDE ANTIBIOTICS)] Plan I have reviewed the history and physical and performed a pertinent physical examination on my patient. No changes have occurred unless specified. Time Spent With Patient Time: Total time managing care of this patient today ____ minutes.
--- NOTE | 2023-05-28 17:21 | PM.OP ---
Brief Operative Note Date of Service: 05/28/23 Pre-op diagnosis: RIght hip IT fracture Post-op diagnosis: same Procedure: IMN right hip Implants: Vonda [id number] 125 deg imn with 100 mm hip screw and 45 mm distal interlock Surgeon: Fransisco Mcghee MD Anesthesia: GLMA and local Was an Manager Generation used for this Procedure?: No Estimated blood loss (mL): 175 Pathology: none sent Condition: stable Disposition: PACU
[2023-05-28] MEDS: cefTRIAXone sodium 1 GM in 0.9 % Sodium Chloride 50 ML IV (19:51)
[2023-05-28] MEDS: Donepezil HCl 10 MG TABLET PO (20:12)
[2023-05-28] MEDS: Atorvastatin Calcium 10 MG TABLET 5 MG PO (20:12)
[2023-05-28] MEDS: Melatonin 3 MG TABLET 6 MG PO (20:12)
[2023-05-28] MEDS: Tamsulosin HCL 0.4 MG CAPSULE PO (20:12)
[2023-05-28] MEDS: ceFAZolin Sodium/Dextrose,Iso 2 GM/50 ML PIGGYBACK IV (21:43)
[2023-05-29] VITALS (9 sets, daily range): BP systolic 100–117; BP diastolic 52–56; PULSE 63–96; RESP 12–18; TEMP 36.2–37.1; O2SAT 96–99
[2023-05-29] MEDS: 0.9 % Sodium Chloride 1,000 ML 75 ML IVCONT (00:11)
[2023-05-29] MEDS: Omeprazole 20 MG CAPSULE.DR PO (05:38)
[2023-05-29 06:44] LABS: Hemoglobin 8.5 g/dl (12.0-16.0); Mean Corpuscular HGB Conc 32.7 g/dl (31.0-35.0); Mean Corpuscular Hemoglobin 30.7 pg (27.0-33.0); Mean Corpuscular Volume 93.9 fL (80.0-98.0); Mean Platelet Volume 11.2 fL (9.4-12.3); Platelet Count 155 X10*3/uL (160-400); Red Blood Count 2.77 X10*6/uL (4.20-5.50); Red Cell Distribution Width 14.1 % (11.0-16.0); White Blood Count 9.1 X10*3/uL (4.8-10.8)
[2023-05-29 06:59] LABS: Anion Gap 9 (12-20); Blood Urea Nitrogen 20 mg/dL (9-16); Calcium 7.7 mg/dL (8.4-10.2); Carbon Dioxide 22 mmol/L (22-29); Chloride 109 mmol/L (96-108); Creatinine Clr Calc Pharmacy 69.5; Estimated Glomerular Filt Rate > 60; Glucose Random 99 mg/dL (60-115); Potassium 3.9 mmol/L (3.3-5.1); Sodium 136 mmol/L (135-145)
--- NOTE | 2023-05-29 08:07 | PM.PNORT ---
Subjective Subjective Date of Service: 05/29/23 Interval history: POD1 s/p rt hip IM Nail Patient is resting in bed comfortably No overnight events Pain is managed No additional complaints Physical Exam Vital Signs: Vital Signs: Last Vital Signs Temp 98.3 F 05/29/23 07:36 Pulse 74 05/29/23 07:36 Resp 12 05/29/23 07:36 BP 102/55 L 05/29/23 07:36 Pulse Ox 97 05/29/23 07:36 O2 Del Method Room Air 05/29/23 07:36 BMI result Body Mass Index 19.5 Const: General: cooperative, healthy appearing and no acute distress Resp: Effort & Inspection: normal respiratory effort and able to speak in complete sentences Cardio: Rate: regular rate Peripheral pulses: Peripheral pulses 2+ throughout GI: Palpation (GI): Soft to palpation Skin: Lesions: no lesions Rashes: no rashes Extrem: Other: right hip dressing is c/d/i. Able to dorsi/plantar flex. Calf is supple and nontender. Sensation intact. Pedal pulse intact. Procedures Date of Service Date of Service: 05/29/23 Progress Note: A&P Assessment and plan (1) Closed fracture of right hip: Status: Acute Plan Continue pain mgmnt Begin Lovenox for dvt ppx begin PT/OT for rt hip im nail - WBAT Dispo planning-Pending PT eval, pain mgmnt Time Spent With Patient Time: Total time managing care of this patient today ____ minutes. Quality Stroke Does the patient have a stroke diagnosis?: No VTE Prior VTE?: No VTE Risk Level:: Medical - moderate - high VTE Device Contraindication: N/A - Device Ordered VTE Drug Contraindication: Treatment Not Indicated
[2023-05-29] MEDS: 0.9 % Sodium Chloride Flush 3 ML SYRINGE IVFLUSH ×3 (08:42→20:43)
[2023-05-29] MEDS: Sertraline HCL 25 MG TABLET PO (08:43)
[2023-05-29] MEDS: Cyanocobalamin (Vitamin B-12) 1,000 MCG TABLET 1000 MCG PO (08:43)
[2023-05-29] MEDS: Folic Acid 1 MG TABLET PO (08:43)
[2023-05-29] MEDS: Loratadine 10 MG TABLET PO (08:43)
[2023-05-29] MEDS: Cholecalciferol (Vitamin D3) 25 MCG TABLET 50 MCG PO (08:43)
--- NOTE | 2023-05-29 09:51 | P.PNIM_ITS ---
Subjective Subjective Date of Service: 05/29/23 Interval History: POD1 IMN pain controlled no chest pain no lightheadedness mildly confused Review of Systems Review of Systems: Yes all other systems are reviewed and are negative Physical Exam 2 Vital Signs: Vital Signs: Last Vital Signs Temp 98.3 F 05/29/23 07:36 Pulse 74 05/29/23 09:03 Resp 12 05/29/23 07:36 BP 102/55 L 05/29/23 09:03 Pulse Ox 97 05/29/23 09:03 O2 Del Method Room Air 05/29/23 07:36 BMI result Body Mass Index 19.5 Gen: in no acute distress HEENT: sclera anicteric, moist mucus membranes Neck: supple Lungs: clear to auscultation bilaterally Heart: regular rate and rhythm, no murmurs Abd: soft, non-tender, non-distended Ext: no edema, R hip deressing dry, distally neurovascularly intact Skin: warm/well-perfused Neuro: alert and oriented to self/place, no focal deficit Psych: appropriate affect Objective Data Active Medications Acetaminophen (Acetaminophen 325 Mg Tablet) 650 mg PO Q6H PRN PRN Reason: Pain, Mild (Pain Scale 1-3) Atorvastatin Calcium (Atorvastatin Calcium 10 Mg Tablet) 5 mg PO BEDTIME [facility] Last Admin: 05/28/23 20:12 Dose: 5 mg Documented By: SHAREE Benzonatate (Benzonatate 100 Mg Capsule) 100 mg PO TID PRN PRN Reason: Cough Cyanocobalamin (Cyanocobalamin (Vitamin B-12) 1,000 Mcg Tablet) 1,000 mcg PO DAILY [facility] Last Admin: 05/29/23 08:43 Dose: 1,000 mcg Documented By: DORI Docusate Sodium (Docusate Sodium 100 Mg Capsule) 100 mg PO DAILY PRN PRN Reason: Constipation Donepezil HCl (Donepezil Hcl 10 Mg Tablet) 10 mg PO BEDTIME [facility] Last Admin: 05/28/23 20:12 Dose: 10 mg Documented By: SHAREE Enoxaparin Sodium (Enoxaparin Sodium 40 Mg/0.4 Ml Syringe) 40 mg SUBCUT Q24H [facility] Fluticasone Propionate (Fluticasone Propionate Nasal 16 Gm [place]) 1 spray NOSTRIL-B DAILY PRN PRN Reason: Congestion Folic Acid (Folic Acid 1 Mg Tablet) 1 mg PO DAILY [facility] Last Admin: 05/29/23 08:43 Dose: 1 mg Documented By: DORI Ceftriaxone Sodium 1 gm/ (Sodium Chloride) 50 mls @ 100 mls/hr IV Q24H [facility] Last Infusion: 05/28/23 20:37 Dose: Infused Documented By: SAHREE Loratadine (Loratadine 10 Mg Tablet) 10 mg PO DAILY [facility] Last Admin: 05/29/23 08:43 Dose: 10 mg Documented By: DORI Melatonin (Melatonin 3 Mg Tablet) 6 mg PO BEDTIME PRN PRN Reason: Insomnia Last Admin: 05/28/23 20:12 Dose: 6 mg Documented By: SHAREE Morphine Sulfate (Morphine Sulfate 2 Mg/Ml Cartridge) 2 mg IVPUSH Q4H PRN; Protocol PRN Reason: Pain, Severe (Pain Scale 7-10) Last Admin: 05/28/23 18:21 Dose: 2 mg Documented By: TONY Omeprazole (Omeprazole 20 Mg Capsule.Dr) 20 mg PO DAILY@0630 [facility] Last Admin: 05/29/23 05:38 Dose: 20 mg Documented By: SHAREE Sertraline HCl (Sertraline Hcl 25 Mg Tablet) 25 mg PO DAILY [facility] Last Admin: 05/29/23 08:43 Dose: 25 mg Documented By: DORI Simethicone (Simethicone 80 Mg Tab.Chew) 80 mg PO 5XD PRN PRN Reason: GI UPSET Sodium Chloride (Sodium Chloride 0.65 % Nasal 44 Ml Sprbtl) 1 spray NOSTRIL-B Q4H PRN PRN Reason: for congestion Sodium Chloride (0.9 % Sodium Chloride Flush 3 Ml Syringe) 3 ml IVFLUSH QSHIFT [facility] Last Admin: 05/29/23 08:42 Dose: 3 ml Documented By: DORI Tamsulosin HCl (Tamsulosin Hcl 0.4 Mg Capsule) 0.4 mg PO BEDTIME [facility] Last Admin: 05/28/23 20:12 Dose: 0.4 mg Documented By: SHAREE Vitamin D (Cholecalciferol (Vitamin D3) 25 Mcg Tablet) 50 mcg PO DAILY [facility] Last Admin: 05/29/23 08:43 Dose: 50 mcg Documented By: DORI Labs 05/29/23 05:46 05/29/23 05:46 Labs: Laboratory Results - last 24 hr 05/28/23 05/29/23 08:12 05:46 MCV 93.9 MCH 30.7 MCHC 32.7 RDW 14.1 Plt Count 155 L MPV 11.2 Absolute Nucleated RBC 0.000 Nucleated RBC % (auto) 0.0 Anion Gap 11 L 9 L Estim Creat Clear Calc 65.8 69.5 Estimated GFR > 60 > 60 Random Glucose 89 99 Calcium 7.9 L D 7.7 L Microbiology Microbiology Results: Microbiology 05/27/23 21:38 Blood Culture - Preliminary Blood - Venous No growth after 24 hours. 05/27/23 21:32 Blood Culture - Preliminary Blood - Venous No growth after 24 hours. 05/27/23 Unknown Urine Culture - Preliminary Urine Catheterized - Straight Catheter Culture too young to evaluate. Assessment and Plan (1) Closed fracture of right hip: Status: Acute Plan d3 82yo F with FTD, HLD, neurogenic bladder, GERD sustained unwitnessed fall at home, found to have R hip fx IMN done 05/28/23 comminuted intertrochanteric fx R femur - POD1 IMN, started LMWH, pain control, PT acute blood loss anemia due to femur fx - monitor H+H, T+S active UTI - ceftriaxone 05/27-, UCx pending incidental R thyroid nodule, 2.3 cm - outpt thyroid US FTD - donepezil GERD - omeprazole mood disorder - sertraline neurogenic bladder - bid straight cath HLD - statin VTE ppx - LMWH dispo - STR In my clinical judgment, the patient requires continued inpatient hospitalization for the following reasons: operative fixation Total time managing care of this patient today: 35 minutes. Quality Stroke Does the patient have a stroke diagnosis?: No VTE Prior VTE?: No VTE Risk Level:: Medical - moderate - high VTE Device Contraindication: N/A - Device Ordered VTE Drug Contraindication: Treatment Not Indicated
--- NOTE | 2023-05-29 11:57 | MHC.CM.PN ---
sppke with pts with whom pt lives he is agreeable that pt will need rehab when dcd referrals will be made
--- NOTE | 2023-05-29 13:35 | PC.NURSE ---
1300- Erickson removed per RN driven protocol, with MD approval. Patient tolerated well. Device intact. 150mL of concentrated urine emptied from bag. PVR bladder scan of 5mL. Due to void by 1900.
--- NOTE | 2023-05-29 14:41 | HO.POSTANES ---
Post Anesthesia Evaluation Post Anesthesia Evaluation Date of Service: 05/29/23 Vital Signs: Vital Signs Temp Pulse Resp BP Pulse Ox O2 Del Method 05/29/23 11:22 98.3 F 90 12 107/52 L 98 Room Air 05/29/23 09:03 74 102/55 L 97 05/29/23 07:36 98.3 F 74 12 102/55 L 97 Room Air 05/29/23 03:32 97.4 F 63 18 100/55 L 96 Room Air Anesthesia: General Mental Status: Awake Pain Control: Satisfactory Nausea/Vomiting: None Hydration: Adequate Anesthesia-Related Issues: No Anes. Related Issues
[2023-05-29] MEDS: Enoxaparin Sodium 40 MG/0.4 ML SYRINGE SUBCUT (15:57)
[2023-05-29] MEDS: Tamsulosin HCL 0.4 MG CAPSULE PO (20:38)
[2023-05-29] MEDS: Morphine Sulfate 2 MG/ML CARTRIDGE IVPUSH (20:38)
[2023-05-29] MEDS: Donepezil HCl 10 MG TABLET PO (20:38)
[2023-05-29] MEDS: Atorvastatin Calcium 10 MG TABLET 5 MG PO (20:38)
[2023-05-29] MEDS: cefTRIAXone sodium 1 GM in 0.9 % Sodium Chloride 50 ML IV (20:43)
[2023-05-30] VITALS (10 sets, daily range): BP systolic 109–143; BP diastolic 54–67; PULSE 72–98; RESP 16–18; TEMP 36.6–37.1; O2SAT 95–98
[2023-05-30] MEDS: Omeprazole 20 MG CAPSULE.DR PO (05:30)
[2023-05-30] MEDS: Acetaminophen 325 MG TABLET 650 MG PO (05:30)
[2023-05-30 06:15] LABS: Hematocrit 21.6 % (37.0-47.0); Hemoglobin 7.2 g/dl (12.0-16.0); Mean Corpuscular HGB Conc 33.3 g/dl (31.0-35.0); Mean Corpuscular Hemoglobin 30.9 pg (27.0-33.0); Mean Corpuscular Volume 92.7 fL (80.0-98.0); Mean Platelet Volume 11.2 fL (9.4-12.3); Platelet Count 147 X10*3/uL (160-400); Red Blood Count 2.33 X10*6/uL (4.20-5.50); Red Cell Distribution Width 14.5 % (11.0-16.0)
[2023-05-30] MEDS: Sertraline HCL 25 MG TABLET PO (08:35)
[2023-05-30] MEDS: Cyanocobalamin (Vitamin B-12) 1,000 MCG TABLET 1000 MCG PO (08:35)
[2023-05-30] MEDS: 0.9 % Sodium Chloride Flush 3 ML SYRINGE IVFLUSH ×3 (08:35→20:19)
[2023-05-30] MEDS: Loratadine 10 MG TABLET PO (08:35)
[2023-05-30] MEDS: Cholecalciferol (Vitamin D3) 25 MCG TABLET 50 MCG PO (08:35)
[2023-05-30] MEDS: Folic Acid 1 MG TABLET PO (08:35)
--- NOTE | 2023-05-30 09:37 | HO.PM.IMPN ---
Subjective Subjective Date of Service: 05/30/23 Interval History: feeling well, pain controlled Hb 8.5->7.2 no dizziness Review of Systems Review of Systems: Yes all other systems are reviewed and are negative Physical Exam Vital Signs: Vital Signs: Last Vital Signs Temp 98.8 F 05/30/23 07:12 Pulse 72 05/30/23 07:12 Resp 16 05/30/23 07:12 BP 109/67 05/30/23 07:12 Pulse Ox 97 05/30/23 07:12 O2 Del Method Room Air 05/30/23 07:12 BMI result Body Mass Index 19.5 Gen: in no acute distress HEENT: sclera anicteric, moist mucus membranes Neck: supple Lungs: clear to auscultation bilaterally Heart: regular rate and rhythm, no murmurs Abd: soft, non-tender, non-distended Ext: no edema, R hip deressing dry, distally neurovascularly intact Skin: warm/well-perfused Neuro: alert and oriented to self/place, no focal deficit Psych: appropriate affect Objective Data Active Medications Acetaminophen (Acetaminophen 325 Mg Tablet) 650 mg PO Q6H PRN PRN Reason: Pain, Mild (Pain Scale 1-3) Last Admin: 05/30/23 05:30 Dose: 650 mg Documented By: WILL Atorvastatin Calcium (Atorvastatin Calcium 10 Mg Tablet) 5 mg PO BEDTIME [facility] Last Admin: 05/29/23 20:38 Dose: 5 mg Documented By: WILL Benzonatate (Benzonatate 100 Mg Capsule) 100 mg PO TID PRN PRN Reason: Cough Cyanocobalamin (Cyanocobalamin (Vitamin B-12) 1,000 Mcg Tablet) 1,000 mcg PO DAILY [facility] Last Admin: 05/30/23 08:35 Dose: 1,000 mcg Documented By: KAYA Docusate Sodium (Docusate Sodium 100 Mg Capsule) 100 mg PO DAILY PRN PRN Reason: Constipation Donepezil HCl (Donepezil Hcl 10 Mg Tablet) 10 mg PO BEDTIME [facility] Last Admin: 05/29/23 20:38 Dose: 10 mg Documented By: WILL Enoxaparin Sodium (Enoxaparin Sodium 40 Mg/0.4 Ml Syringe) 40 mg SUBCUT Q24H [facility] Last Admin: 05/29/23 15:57 Dose: 40 mg Documented By: DORI Fluticasone Propionate (Fluticasone Propionate Nasal 16 Gm [place]) 1 spray NOSTRIL-B DAILY PRN PRN Reason: Congestion Folic Acid (Folic Acid 1 Mg Tablet) 1 mg PO DAILY [facility] Last Admin: 05/30/23 08:35 Dose: 1 mg Documented By: KAYA Ceftriaxone Sodium 1 gm/ (Sodium Chloride) 50 mls @ 100 mls/hr IV Q24H [facility] Last Infusion: 05/29/23 21:41 Dose: Infused Documented By: WILL Sodium Chloride (Ns) 100 mls @ 100 mls/hr IV ONCE ONE Stop: 05/30/23 10:31 Loratadine (Loratadine 10 Mg Tablet) 10 mg PO DAILY [facility] Last Admin: 05/30/23 08:35 Dose: 10 mg Documented By: KAYA Melatonin (Melatonin 3 Mg Tablet) 6 mg PO BEDTIME PRN PRN Reason: Insomnia Last Admin: 05/28/23 20:12 Dose: 6 mg Documented By: SHAREE Morphine Sulfate (Morphine Sulfate 2 Mg/Ml Cartridge) 2 mg IVPUSH Q4H PRN; Protocol PRN Reason: Pain, Severe (Pain Scale 7-10) Last Admin: 05/29/23 20:38 Dose: 2 mg Documented By: WILL Omeprazole (Omeprazole 20 Mg Capsule.Dr) 20 mg PO DAILY@0630 [facility] Last Admin: 05/30/23 05:30 Dose: 20 mg Documented By: WILL Sertraline HCl (Sertraline Hcl 25 Mg Tablet) 25 mg PO DAILY [facility] Last Admin: 05/30/23 08:35 Dose: 25 mg Documented By: KAYA Simethicone (Simethicone 80 Mg Tab.Chew) 80 mg PO 5XD PRN PRN Reason: GI UPSET Sodium Chloride (Sodium Chloride 0.65 % Nasal 44 Ml Sprbtl) 1 spray NOSTRIL-B Q4H PRN PRN Reason: for congestion Sodium Chloride (0.9 % Sodium Chloride Flush 3 Ml Syringe) 3 ml IVFLUSH QSHIFT [facility] Last Admin: 05/30/23 08:35 Dose: 3 ml Documented By: KAYA Tamsulosin HCl (Tamsulosin Hcl 0.4 Mg Capsule) 0.4 mg PO BEDTIME [facility] Last Admin: 05/29/23 20:38 Dose: 0.4 mg Documented By: WILL Vitamin D (Cholecalciferol (Vitamin D3) 25 Mcg Tablet) 50 mcg PO DAILY [facility] Last Admin: 05/30/23 08:35 Dose: 50 mcg Documented By: KAYA Labs 05/30/23 06:06 05/29/23 05:46 Labs: Laboratory Results - last 24 hr 05/30/23 06:06 MCV 92.7 MCH 30.9 MCHC 33.3 RDW 14.5 Plt Count 147 L MPV 11.2 Absolute Nucleated RBC 0.000 Nucleated RBC % (auto) 0.0 Microbiology Microbiology Results: Microbiology 05/27/23 21:38 Blood Culture - Preliminary Blood - Venous No growth after 48 hours. 05/27/23 21:32 Blood Culture - Preliminary Blood - Venous No growth after 48 hours. 05/27/23 Unknown Urine Culture - Final Urine Catheterized - Straight Catheter Assessment and Plan (1) Closed fracture of right hip: Status: Acute Plan d4 82yo F with FTD, HLD, neurogenic bladder, GERD sustained unwitnessed fall at home, found to have R hip fx IMN done 05/28/23 comminuted intertrochanteric fx R femur - POD2 IMN, continue LMWH x30d postop, pain control, PT acute blood loss anemia due to femur fx - transfuse 1u pRBCs, recheck H+H in AM UTI - ceftriaxone 05/27-06/01, UCx mixed anjana incidental R thyroid nodule, 2.3 cm - outpt thyroid US FTD - donepezil GERD - omeprazole mood disorder - sertraline neurogenic bladder - bid straight cath HLD - statin VTE ppx - LMWH dispo - STR In my clinical judgment, the patient requires continued inpatient hospitalization for the following reasons: postop care, anemia requiring transfusion Total time managing care of this patient today: 35 minutes. Quality Stroke Does the patient have a stroke diagnosis?: No VTE Prior VTE?: No VTE Risk Level:: Medical - moderate - high VTE Device Contraindication: N/A - Device Ordered VTE Drug Contraindication: Treatment Not Indicated
--- NOTE | 2023-05-30 11:24 | PM.PNORT ---
Subjective Subjective Date of Service: 05/30/23 Interval history: POD2 s/p rt hip IM Nail Patient is resting in bed comfortably No overnight events Pain is managed No additional complaints Physical Exam Vital Signs: Vital Signs: Last Vital Signs Temp 98.8 F 05/30/23 07:12 Pulse 72 05/30/23 11:00 Resp 16 05/30/23 07:12 BP 109/67 05/30/23 11:00 Pulse Ox 97 05/30/23 11:00 O2 Del Method Room Air 05/30/23 07:12 BMI result Body Mass Index 19.5 Const: General: cooperative, healthy appearing and no acute distress Resp: Effort & Inspection: normal respiratory effort and able to speak in complete sentences Cardio: Rate: regular rate Peripheral pulses: Peripheral pulses 2+ throughout GI: Palpation (GI): Soft to palpation Skin: Lesions: no lesions Rashes: no rashes Extrem: Other: right hip dressing is c/d/i. Able to dorsi/plantar flex. Calf is supple and nontender. Sensation intact. Pedal pulse intact. Procedures Date of Service Date of Service: 05/30/23 Progress Note: A&P Assessment and plan (1) Closed fracture of right hip: Status: Acute Plan Continue pain mgmnt Continue Lovenox for dvt ppx Continue PT/OT for rt hip im nail - WBAT Dispo planning-Pain management, signing off from ortho perspective may go to rehab once medically cleared Time Spent With Patient Time: Total time managing care of this patient today ____ minutes. Quality Stroke Does the patient have a stroke diagnosis?: No VTE Prior VTE?: No VTE Risk Level:: Medical - moderate - high VTE Device Contraindication: N/A - Device Ordered VTE Drug Contraindication: Treatment Not Indicated
--- NOTE | 2023-05-30 12:23 | PC.NURSE ---
Per MD Leone pt is straight cathed at home BID. Per current orderers, Pt straight cathed on this shift at 1215 for 250ml of clear dark yellow urine using sterile technique. Pt tolerated well.
--- NOTE | 2023-05-30 12:28 | MHC.CM.PN ---
Addendum entered by Julia eFrris 06/01/23 08:45: CM MET WITH FAMILY WHO INDICATED THEY WOULD BE LOOKING AT THE SNF AND MAKING A DECISION PTS SON, TORI, CALLED LATER IN THE DAY AND INDICATED THEY WOULD PREFER [facility] INFORMED VIA [employer] Original Note: PT WILL NEED STR ONCE MEDICALLY CLEAR [facility] ARE FOLLOWING
[2023-05-30] MEDS: Sennosides/Docusate Sodium TABLET 2 TAB PO ×2 (14:25→20:18)
[2023-05-30] MEDS: oxyCODONE HCl Immed Release 5 MG TABLET PO (14:25)
[2023-05-30] MEDS: Enoxaparin Sodium 40 MG/0.4 ML SYRINGE SUBCUT (14:32)
[2023-05-30] MEDS: Tamsulosin HCL 0.4 MG CAPSULE PO (20:18)
[2023-05-30] MEDS: Donepezil HCl 10 MG TABLET PO (20:18)
[2023-05-30] MEDS: Atorvastatin Calcium 10 MG TABLET 5 MG PO (20:18)
[2023-05-30] MEDS: cefTRIAXone sodium 1 GM in 0.9 % Sodium Chloride 50 ML IV (20:18)
[2023-05-31 03:33] VITALS: BP 132/60; PULSE 71; RESP 18; TEMP 36.9; O2SAT 96
[2023-05-31] MEDS: Omeprazole 20 MG CAPSULE.DR PO (06:37)
[2023-05-31 07:37] VITALS: BP 141/67; PULSE 77; RESP 16; TEMP 36.4; O2SAT 98
[2023-05-31] MEDS: Cholecalciferol (Vitamin D3) 25 MCG TABLET 50 MCG PO (07:54)
[2023-05-31] MEDS: Folic Acid 1 MG TABLET PO (07:54)
[2023-05-31] MEDS: cefuroxime axetiL 250 MG TABLET PO ×2 (07:54→20:19)
[2023-05-31] MEDS: Sertraline HCL 25 MG TABLET PO (07:54)
[2023-05-31] MEDS: Cyanocobalamin (Vitamin B-12) 1,000 MCG TABLET 1000 MCG PO (07:55)
[2023-05-31] MEDS: 0.9 % Sodium Chloride Flush 3 ML SYRINGE IVFLUSH ×3 (07:55→19:43)
[2023-05-31] MEDS: Loratadine 10 MG TABLET PO (07:55)
[2023-05-31] MEDS: Sennosides/Docusate Sodium TABLET 2 TAB PO ×2 (07:55→20:17)
[2023-05-31 08:13] LABS: Hematocrit 24.9 % (37.0-47.0); Hemoglobin 8.1 g/dl (12.0-16.0); Mean Corpuscular HGB Conc 32.5 g/dl (31.0-35.0); Mean Corpuscular Hemoglobin 29.6 pg (27.0-33.0); Mean Corpuscular Volume 90.9 fL (80.0-98.0); Mean Platelet Volume 10.7 fL (9.4-12.3); Platelet Count 145 X10*3/uL (160-400); Red Blood Count 2.74 X10*6/uL (4.20-5.50); Red Cell Distribution Width 14.9 % (11.0-16.0); White Blood Count 8.8 X10*3/uL (4.8-10.8)
--- NOTE | 2023-05-31 10:37 | PC.NURSE ---
Pt requires BID straight cath, is pts baseline at home. Pt scanned for 325ML and cathed for 225ML using sterile technique, pt tolerated well.
--- NOTE | 2023-05-31 11:08 | HO.PM.IMPN ---
Subjective Subjective Date of Service: 05/31/23 Interval History: Good pain control, had 1 bowel movement yesterday, feel constipated this morning, denies lightheadedness, no dizziness, no chest pain, no urinary symptoms of urgency and frequency, no other acute issues overnight. Review of Systems All other system reviewed and negative. Physical Exam Vital Signs: Vital Signs: Last Vital Signs Temp 97.6 F 05/31/23 07:37 Pulse 77 05/31/23 07:37 Resp 16 05/31/23 07:37 BP 141/67 H 05/31/23 07:37 Pulse Ox 98 05/31/23 07:37 O2 Del Method Room Air 05/31/23 07:37 BMI result Body Mass Index 19.5 Const: Other: Gen: in no acute distress Neck: supple Lungs: clear to auscultation bilaterally Heart: regular rate and rhythm, no murmurs Abd: soft, non-tender, non-distended Ext: no edema, R hip deressing dry Skin: warm/well-perfused Neuro: alert and oriented to self/place, no focal deficit Psych: appropriate affect Objective Data Active Medications Acetaminophen (Acetaminophen 325 Mg Tablet) 650 mg PO Q6H PRN PRN Reason: Pain, Mild (Pain Scale 1-3) Last Admin: 05/30/23 05:30 Dose: 650 mg Documented By: WILL Atorvastatin Calcium (Atorvastatin Calcium 10 Mg Tablet) 5 mg PO BEDTIME [facility] Last Admin: 05/30/23 20:18 Dose: 5 mg Documented By: WILL Benzonatate (Benzonatate 100 Mg Capsule) 100 mg PO TID PRN PRN Reason: Cough Cefuroxime Axetil (Cefuroxime Axetil 250 Mg Tablet) 250 mg PO Q12H [facility] Last Admin: 05/31/23 07:54 Dose: 250 mg Documented By: KAYA Cyanocobalamin (Cyanocobalamin (Vitamin B-12) 1,000 Mcg Tablet) 1,000 mcg PO DAILY [facility] Last Admin: 05/31/23 07:55 Dose: 1,000 mcg Documented By: KAYA Donepezil HCl (Donepezil Hcl 10 Mg Tablet) 10 mg PO BEDTIME [facility] Last Admin: 05/30/23 20:18 Dose: 10 mg Documented By: WILL Enoxaparin Sodium (Enoxaparin Sodium 40 Mg/0.4 Ml Syringe) 40 mg SUBCUT Q24H [facility] Last Admin: 05/30/23 14:32 Dose: 40 mg Documented By: KAYA Fluticasone Propionate (Fluticasone Propionate Nasal 16 Gm [place]) 1 spray NOSTRIL-B DAILY PRN PRN Reason: Congestion Folic Acid (Folic Acid 1 Mg Tablet) 1 mg PO DAILY [facility] Last Admin: 05/31/23 07:54 Dose: 1 mg Documented By: KAYA Loratadine (Loratadine 10 Mg Tablet) 10 mg PO DAILY [facility] Last Admin: 05/31/23 07:55 Dose: 10 mg Documented By: KAYA Melatonin (Melatonin 3 Mg Tablet) 6 mg PO BEDTIME PRN PRN Reason: Insomnia Last Admin: 05/28/23 20:12 Dose: 6 mg Documented By: SHAREE Morphine Sulfate (Morphine Sulfate 2 Mg/Ml Cartridge) 2 mg IVPUSH Q4H PRN; Protocol PRN Reason: Pain, Severe (Pain Scale 7-10) Last Admin: 05/29/23 20:38 Dose: 2 mg Documented By: WILL Omeprazole (Omeprazole 20 Mg Capsule.Dr) 20 mg PO DAILY@0630 [facility] Last Admin: 05/31/23 06:37 Dose: 20 mg Documented By: WILL Oxycodone HCl (Oxycodone Hcl Immed Release 5 Mg Tablet) 5 mg PO Q4H PRN PRN Reason: moderate pain Last Admin: 05/30/23 14:25 Dose: 5 mg Documented By: KAYA Polyethylene Glycol (Polyethylene Glycol 3350 17 Gm Powd.Pack) 17 gm PO DAILY PRN PRN Reason: constipation Senna/Docusate Sodium (Sennosides/Docusate Sodium Tablet) 2 tab PO BID [facility] Last Admin: 05/31/23 07:55 Dose: 2 tab Documented By: KAYA Sertraline HCl (Sertraline Hcl 25 Mg Tablet) 25 mg PO DAILY [facility] Last Admin: 05/31/23 07:54 Dose: 25 mg Documented By: KAYA Simethicone (Simethicone 80 Mg Tab.Chew) 80 mg PO 5XD PRN PRN Reason: GI UPSET Sodium Biphosphate/Sodium Phosphate (Sodium Phosphate,Sampson-Dibasic 133 Ml Enema) 133 ml CO ONCE PRN PRN Reason: Constipation Sodium Chloride (Sodium Chloride 0.65 % Nasal 44 Ml Sprbtl) 1 spray NOSTRIL-B Q4H PRN PRN Reason: for congestion Sodium Chloride (0.9 % Sodium Chloride Flush 3 Ml Syringe) 3 ml IVFLUSH QSHIFT [facility] Last Admin: 05/31/23 07:55 Dose: 3 ml Documented By: KAYA Tamsulosin HCl (Tamsulosin Hcl 0.4 Mg Capsule) 0.4 mg PO BEDTIME [facility] Last Admin: 05/30/23 20:18 Dose: 0.4 mg Documented By: WILL Vitamin D (Cholecalciferol (Vitamin D3) 25 Mcg Tablet) 50 mcg PO DAILY [facility] Last Admin: 05/31/23 07:54 Dose: 50 mcg Documented By: KAYA Labs 05/31/23 07:49 05/29/23 05:46 Labs: Laboratory Results - last 24 hr 05/30/23 05/31/23 10:08 07:49 MCV 90.9 MCH 29.6 MCHC 32.5 RDW 14.9 Plt Count 145 L MPV 10.7 Absolute Nucleated RBC 0.000 Nucleated RBC % (auto) 0.0 Blood Type O Negative Antibody Screen NEGATIVE Crossmatch See Detail Assessment and Plan (1) Closed fracture of right hip: Status: Acute Plan 82yo F with FTD, HLD, neurogenic bladder, GERD sustained unwitnessed fall at home, found to have R hip fx IMN done 05/28/23 comminuted intertrochanteric fx R femur - POD3 IMN, continue LMWH x30d postop, pain control, Continue stool softeners, Fleet enema x1 acute blood loss anemia due to femur fx - s/p transfuse 1u pRBCs, repeat hematocrit improved, follow CBC UTI - ceftriaxone 05/27-06/01, UCx mixed anjana, DC IV ceftriaxone placed on Ceftin 250 1 tablet b.i.d. for 1 more day and incidental R thyroid nodule, 2.3 cm - outpt thyroid US FTD - donepezil GERD - omeprazole mood disorder - sertraline neurogenic bladder - bid straight cath HLD - statin VTE ppx - LMWH In my clinical judgment, the patient requires continued inpatient hospitalization for the following reasons: postop care, anemia requiring transfusion PT recommend short-term rehab cm arranging for safe discharge Total time managing care of this patient today: 35 minutes. Quality Stroke Does the patient have a stroke diagnosis?: No VTE Prior VTE?: No VTE Risk Level:: Medical - moderate - high VTE Device Contraindication: N/A - Device Ordered VTE Drug Contraindication: Treatment Not Indicated
[2023-05-31] MEDS: Acetaminophen 325 MG TABLET 650 MG PO ×2 (11:10→18:12)
[2023-05-31] MEDS: polyethylene glycoL 3350 17 GM POWD.PACK PO (11:11)
[2023-05-31 11:47] VITALS: BP 146/62; PULSE 93; RESP 16; TEMP 36.4; O2SAT 98
[2023-05-31] MEDS: Sodium Phosphate,Mono-Dibasic 133 ML ENEMA PR (13:33)
[2023-05-31 15:20] VITALS: BP 125/60; PULSE 89; RESP 16; TEMP 36.6; O2SAT 97
[2023-05-31] MEDS: Enoxaparin Sodium 40 MG/0.4 ML SYRINGE SUBCUT (16:07)
[2023-05-31 19:09] VITALS: BP 137/63; PULSE 80; RESP 16; TEMP 36.4; O2SAT 97
[2023-05-31] MEDS: Atorvastatin Calcium 10 MG TABLET 5 MG PO (20:17)
[2023-05-31] MEDS: Donepezil HCl 10 MG TABLET PO (20:19)
[2023-05-31] MEDS: Tamsulosin HCL 0.4 MG CAPSULE PO (20:19)
[2023-06-01] VITALS: BP 134/71; PULSE 69; RESP 16; TEMP 36.6; O2SAT 95
[2023-06-01 03:05] VITALS: RESP 18
[2023-06-01] MEDS: Omeprazole 20 MG CAPSULE.DR PO (06:00)
[2023-06-01] MEDS: Acetaminophen 325 MG TABLET 650 MG PO (06:01)
[2023-06-01 07:12] VITALS: BP 117/63; PULSE 76; RESP 18; TEMP 36.9; O2SAT 95
[2023-06-01] MEDS: Loratadine 10 MG TABLET PO (09:13)
[2023-06-01] MEDS: Folic Acid 1 MG TABLET PO (09:13)
[2023-06-01] MEDS: cefuroxime axetiL 250 MG TABLET PO (09:13)
[2023-06-01] MEDS: Cyanocobalamin (Vitamin B-12) 1,000 MCG TABLET 1000 MCG PO (09:13)
[2023-06-01] MEDS: Sertraline HCL 25 MG TABLET PO (09:13)
[2023-06-01] MEDS: Cholecalciferol (Vitamin D3) 25 MCG TABLET 50 MCG PO (09:13)
[2023-06-01] MEDS: Sennosides/Docusate Sodium TABLET 2 TAB PO (09:14)
[2023-06-01] MEDS: 0.9 % Sodium Chloride Flush 3 ML SYRINGE IVFLUSH (09:14)
--- NOTE | 2023-06-01 10:32 | MHC.CM.PN ---
pt to be dcd today to [facility]el chand at 1 son notifoed
--- NOTE | 2023-06-01 10:46 | PM.DS ---
DS: Providers Provider Date of Service: 06/01/23 Date of admission: 05/27/23 21:40 Primary care physician: Radha Kendall MD Consults: 05/27/23 19:28 Consult to Orthopedics Stat Consulting Provider: [facility] Reason for consultation: Right hip fracture Has provider been notified: Yes DS: Diagnosis Discharge Diagnosis (1) Closed fracture of right hip: Status: Acute DS: Summary Hospital Course Hospital Course: History of presenting illness: Date of Service: 05/27/23 Attending physician on admission: Nicholas Holm Chief Complaint: Mechanical fall at home with right hip pain Pt is an 82-year-old female with a PMH significant for?frontotemporal dementia, HLD, neurogenic bladder, and GERD who presents to the ED for evaluation of right hip pain after suffering an unwitnessed fall at home. ?Patient with [id number] frontotemporal dementia at baseline, lives with her in independent living at [facility] in [place]. 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 has been very weak lately and spending most time in bed. Patient was apparently in the kitchen when she had an unwitnessed fall while getting dinner ready. Patient apparently told ED clinician that she tripped over something and fell backwards landing on her right hip and also hitting her head but did not lose consciousness. At time of current interview patient was unable to recall events preceding her fall, but realized she did have right hip pain. Pt otherwise had no acute medical complaints. Denies headache. No chest pain/pressure, palpitations. Denies SOB. Of note, patient has a long history of frequent falls; family reports she has fallen around once a month for the past few years. Patient on aspirin, but not on chronic blood thinners. 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 Patient's daughter Renetta Herron is one of her healthcare proxies and would like to be updated about patient's progress at [phone]. In the ED pt was hypertensive up to 173/61, otherwise vitals WNL. Labs were grossly unremarkable with no leukocytosis, anemia, or electrolyte abnormalities. CXR showed no cardiopulmonary process. Hip and pelvis x-ray showed comminuted intertrochanteric fracture of the right femur without dislocation. CT of head found no acute intracranial abnormality. CT of cervical spine found no evidence of cervical spine fracture or traumatic malalignment, but did show 2.3 cm right thyroid nodule with recommendation for further assessment with thyroid ultrasound. EKG demonstrated normal sinus rhythm without evidence of ST elevations or depressions. Pt was treated with IVF and ketorolac. ED physicians contacted Orthopedics who plan on surgical intervention in the morning. Pt will be admitted to the hospital for treatment and further evaluation of right hip fracture secondary to likely mechanical fall at home. Hospital course: 82yo F with FTD, HLD, neurogenic bladder, GERD, sustained unwitnessed fall at home, found to have comminuted intertrochanteric fx R femur, admitted to medical floor and underwent IMN on 05/28/23, postprocedure placed on low-molecular weight heparin for total 30 days, treated with oxycodone, Tylenol and stool softeners, patient noted to acute blood loss anemia due to femur fracture received 1 unit of packed RBC repeat hematocrit improved and remained stable patient is now being discharged to rehab facility for physical therapy. UTI treated with IV ceftriaxone finished course of antibiotic. incidental R thyroid nodule, 2.3 cm recommend outpt thyroid US. Frontotemporal dementia continue donepezil. GERD- omeprazole mood disorder - sertraline neurogenic bladder patient voids by straight cath twice daily. HLD continue statin Time Attestation Discharge coordination time: Greater than 30 minutes Quality: Safe Use of Opioids Does Pt have an Active Cancer Diagnosis on the Problem List?: No Quality: Stroke Does the patient have a stroke diagnosis?: No Physical Exam Vital Signs: Vital Signs: Last Vital Signs Temp 98.4 F 06/01/23 07:12 Pulse 76 06/01/23 07:12 Resp 18 06/01/23 07:12 BP 117/63 06/01/23 07:12 Pulse Ox 95 06/01/23 07:12 O2 Del Method Room Air 06/01/23 07:12 BMI result Body Mass Index 19.5 Const: Other: Gen: Awake alert, in no acute distress Neck: supple Lungs: clear to auscultation bilaterally Heart: regular rate and rhythm, no murmurs Abd: soft, non-tender, non-distended Ext: no edema, R hip deressing dry Skin: warm/well-perfused Neuro: alert and oriented to self/place, no focal deficit Psych: appropriate affect DS: Data Data Completed and Pending Labs on day of discharge: Preliminary micro results at discharge 05/27/23 21:38 Blood Culture - Preliminary Blood - Venous No growth after 48 hours. 05/27/23 21:32 Blood Culture - Preliminary Blood - Venous No growth after 48 hours. Discharge Plan Discharge Anticipated Discharge Date/Time: 06/01/23 10:37 Patient Disposition: Xfer SNF Discharge Diagnosis: Right femur intertrochanteric fracture status post surgery Acute blood loss anemia due to femur fracture UTI Incidental right thyroid nodule Referrals: gissel jagruti [Other] - 1 Week Yvette Interiano PA-C [Physician Heart Doctor] - 06/18/23 12:30 pm (June 18 at 12:30) Po,Radha Salcido MD [Primary Care Provider] - 1 Week Discharge Medications: New polyethylene glycol 3350 17 gram Powder In Packet 17 g PO DAILY PRN (Reason: constipation) Qty: 30 0RF acetaminophen 325 mg Tablet 650 mg PO Q6H PRN (Reason: Pain, Mild (Pain Scale 1-3)) Qty: 30 0RF oxycodone 5 mg Tablet 5 mg PO Q4H PRN (Reason: moderate pain) Qty: 15 0RF Rx Instructions: Partial Fill upon patient request. enoxaparin 40 mg/0.4 mL Syringe 40 mg subcut Q24H Qty: 26 0RF Continued cholecalciferol (vitamin D3) 50 mcg (2,000 unit) capsule 50 mcg PO DAILY 90 Days Qty: 90 3RF Saline Nasal 0.65 % aerosol,spray 1 spray intranasal Q4H PRN (Reason: for congestion) Qty: 44 0RF folic acid 1 mg tablet 1 mg PO DAILY Qty: 90 3RF cyanocobalamin (vitamin B-12) 1,000 mcg tablet 1,000 mcg PO DAILY 90 Days Qty: 90 3RF simvastatin 5 mg tablet 5 mg PO BEDTIME Qty: 90 3RF sertraline 25 mg tablet 25 mg PO DAILY Qty: 90 2RF omeprazole 20 mg capsule,delayed release(DR/EC) 20 mg PO DAILY Qty: 90 3RF Extra Strength Pattie 500 mg Tablet 500 mg PO Q6H PRN (Reason: Pain) simethicone 80 mg Tablet,Chewable 80 mg PO 5XD PRN (Reason: GI UPSET) cranberry extract-vitamin C 250-60 mg Capsule 1 cap PO DAILY fluticasone propionate [Flonase Allergy Relief] 50 mcg/actuation spray,suspension 1 spray intranasal DAILY PRN (Reason: Congestion) Rx Instructions: administer into each nostril donepezil 10 mg tablet 10 mg PO BEDTIME Qty: 30 0RF tamsulosin 0.4 mg capsule 0.4 mg PO BEDTIME Qty: 30 0RF loratadine 10 mg tablet 10 mg PO DAILY Qty: 90 0RF Discharge Orders: Discharge Order (Routine); Ordered 06/01/23 Ordered By: Tiffanie Zazueta Diet: Advance to usual diet Activity on Discharge: Use cane or walker Stand Alone Forms: Patient Portal Discharge page Activity Restrictions/Additional Instructions: Gait training, strengthening, ADLs Continue Lovenox for dvt ppx x6 weeks,end date 07/12 Keep dressing clean, dry and intact-no showering or tub baths Follow up with Orthopedics in [address] cath twice daily Care Plan Goals: Status post right hip surgery, take pain medicines as needed Continue stool softeners Incidental right thyroid nodule 2.3 cm recommend outpatient thyroid ultrasound Health Concerns: Continue all home medications Plan of Treatment: Follow-up with primary care physician call for appointment, follow-up with orthopedic surgeon in 2 weeks Assessment: As above
[2023-06-01 11:46] VITALS: BP 138/68; PULSE 86; RESP 18; TEMP 36.3; O2SAT 97
--- NOTE | 2023-06-06 13:00 | W.PM.OPN ---
Operative Note Operative Note Date of Service: 05/28/23 Narrative: Date of Service: 05/28/23 Pre-op diagnosis: RIght hip IT fracture Post-op diagnosis: same Procedure: IMN right hip Implants: Vonda [id number] 125 deg imn with 100 mm hip screw and 45 mm distal interlock Surgeon: Fransisco Mcghee MD Anesthesia: GLMA and local Was an Marzipan Maker used for this Procedure?: No Estimated blood loss (mL): 175 Pathology: none sent Condition: stable Disposition: PACU Procedure in detail: Patient was brought to the operating room and prepped and draped in standard sterile fashion. Time-out was called to identify proper site procedure proper surgeon and IV antibiotics per weight were administered. She was positioned on the fracture table and a traction and slight internal rotation were performed and biplanar fluoroscopy confirmed initial fracture reduction. I then made a stab incision proximal to the greater trochanter in using a guidewire made a entry point just lateral to the tip of the greater trochanter and placed a guidewire into the femoral metadiaphysis. I then over-reamed with 15 mm Reamer placed my ball-tip guidewire down distally in the femur and measured my length. I selected a [id number] 125 deg IMN nail and reamed up to a 13. I then inserted the nail. I then turned my attention to the hip screw where I used a guidewire and a tip apex distance of less than 1.5 measured my hip screw. I then pre drilled and placed a 100mm hip screw using biplanar fluoroscopy. Once I was satisfied with the position of the hip screw I turned my attention to the distal aspect of the nail. Using perfect [place] technique I placed 1 static 45mm distal interlocking screw in standard AO technique. I then removed all I then placed my set screw proximally and removed all extraneous instrumentation. Final biplanar radiographs were taken. I was satisfied with the position of the hardware and the fracture reduction. I think copiously irrigated closed with absorbable sutures ryan and injected 30 mL of into the area of the incisions. Traction was let down patient was placed in sterile dressing awakened from anesthesia brought to recovery room stable condition there were no known complications.
== END 2023-06-01 14:32 | disposition skilled nursing facility (03) | DRG 481 ==
LOC: HO.ED 19:29 → HO.EDOVER 22:28 → HO.S3 23:39
PROVIDERS: Family Medicine; Orthopaedic Surgery; Admitting Provider Student in an Organized Health Care Education/Training Program; Emergency Provider Student in an Organized Health Care Education/Training Program; PCP Internal Medicine; Visit Provider Hospitalist
PROC: 0QS636Z Reposition Right Upper Femur with Intramedullary Internal Fixation Device, Percutaneous Approach (ICD-10-PCS; principal; 2023-05-28 15:30)
DX: S72.141A Displaced intertrochanteric fracture of right femur, initial encounter for closed fracture (principal); D62 Acute posthemorrhagic anemia; N39.0 Urinary tract infection, site not specified; G31.09 Other frontotemporal neurocognitive disorder; F39 Unspecified mood [affective] disorder; E04.1 Nontoxic single thyroid nodule; F02.80 Dementia in other diseases classified elsewhere, unspecified severity, without behavioral disturbance, psychotic disturbance, mood disturbance, and anxiety; N31.2 Flaccid neuropathic bladder, not elsewhere classified; W19.XXXA Unspecified fall, initial encounter; Z79.899 Other long term (current) drug therapy
CPT/HCPCS: 36415; 70450; 71045; 72125; 73502; 80048; 80053; 81001; 83605; 85025; 85027; 85610; 86850; 86900; 86901; 86923; 87040; 87086; 93005; 97110; 97162; 97166; 97530; 99024; 99285; C1713; C1758; C1769; J0131; J0690; J0696; J1100; J1650; J1885; J2270; J2405; J2704; J2795; J3010; P9016

== ENCOUNTER → 2023-05-27 18:57 | Outpatient (BNV) | payer MEDICARE, OTHER, SELFPAY | PROVIDERS: Admitting Provider Student in an Organized Health Care Education/Training Program; Emergency Provider Student in an Organized Health Care Education/Training Program; PCP Internal Medicine; Visit Provider Internal Medicine Cardiovascular Disease | DX: Z01.818 Encounter for other preprocedural examination (principal); S72.001A Fracture of unspecified part of neck of right femur, initial encounter for closed fracture | CPT/HCPCS: 93010 ==

== ENCOUNTER → 2023-05-27 21:40 | Outpatient (BNV) | payer MEDICARE, OTHER, SELFPAY | PROVIDERS: Admitting Provider Student in an Organized Health Care Education/Training Program; Emergency Provider Student in an Organized Health Care Education/Training Program; PCP Internal Medicine; Visit Provider Family Medicine | DX: S72.001A Fracture of unspecified part of neck of right femur, initial encounter for closed fracture (principal) | CPT/HCPCS: 99223; 99232; 99233; 99239 ==

== ENCOUNTER → 2023-05-27 21:40 | Outpatient (BNV) | payer MEDICARE, OTHER, SELFPAY | PROVIDERS: Admitting Provider Student in an Organized Health Care Education/Training Program; Emergency Provider Student in an Organized Health Care Education/Training Program; PCP Internal Medicine; Visit Provider Physician Assistant | DX: S72.001A Fracture of unspecified part of neck of right femur, initial encounter for closed fracture (principal) | CPT/HCPCS: 27245; 99223 ==

== ENCOUNTER 2023-06-18 10:09 | Outpatient (REF) | payer MEDICARE, OTHER, SELFPAY | END 2023-06-18 10:10 | disposition home or self-care (01) | LOC: HO.HOSX 10:09 | PROVIDERS: Visit Provider Physician Assistant | DX: Z13.89 Encounter for screening for other disorder (principal) ==

== ENCOUNTER 2023-07-01 10:01 | Outpatient (REF) | payer MEDICARE, OTHER, SELFPAY ==
--- NOTE | ~2023-07-01 | XR_ITS ---
EXAMINATION: XR FEMUR, RIGHT CLINICAL INFORMATION: Displaced intertrochanteric fracture COMPARISON: May 28 and 05/27/2023 TECHNIQUE: AP and lateral views of the right femur were obtained. FINDINGS: There are new ORIF seen in the right hip including dynamic screw and intramedullary roberto. Fragments of fractures are well aligned. Hip joint is maintained. Soft tissues are unremarkable. XR/XR femur RT 2V IMPRESSION: Expected postsurgical changes for ORIF placement in the right hip
== END 2023-07-01 10:02 | disposition home or self-care (01) ==
LOC: HO.HOSX 10:01
PROVIDERS: Visit Provider Physician Assistant
DX: S72.141A Displaced intertrochanteric fracture of right femur, initial encounter for closed fracture (principal); X58.XXXA Exposure to other specified factors, initial encounter; Y93.9 Activity, unspecified; Y92.9 Unspecified place or not applicable; Y99.9 Unspecified external cause status
CPT/HCPCS: 73552; 99212

== ENCOUNTER 2023-07-01 12:06 | Outpatient (AMB) | payer MEDICARE, OTHER, SELFPAY ==
--- NOTE | 2023-07-01 12:15 | A.OFFVIS_ITS ---
Intake Intake Visit Reasons: PO-s/p right hip IM Nail-05/28/23 Intake Note: Eliza an 82 year old female presents today with her daughter for a post operative right hip IMN on 05/28/23 NE. Patient reports she is still having some pain, she states that her pain is a 5/10 on the pain scale. She states that her pain is worse with movement. Allergies Sulfa (Sulfonamide Antibiotics) [SULFA (SULFONAMIDE ANTIBIOTICS)] Allergy (Unknown, Verified 07/01/23 12:16) UNKNOWN, hives Medication List - Last Reconciled 07/01/23 by NINI Becker-Ramos acetaminophen 650 mg (2 x 325 mg) PO Q6H PRN aspirin (Extra Strength Pattie) 500 mg PO Q6H PRN cholecalciferol (vitamin D3) 50 mcg PO DAILY 90 days cranberry extract-vitamin C 250-60 mg 1 cap PO DAILY cyanocobalamin (vitamin B-12) 1,000 mcg PO DAILY 90 days donepezil 10 mg PO BEDTIME enoxaparin 40 mg (0.4 mL) subcut Q24H fluticasone propionate 50 mcg/actuation (Flonase Allergy Relief) 1 spray intranasal DAILY PRN folic acid 1 mg PO DAILY loratadine 10 mg PO DAILY omeprazole 20 mg PO DAILY oxycodone 5 mg PO Q4H PRN polyethylene glycol 3350 17 grams PO DAILY PRN sertraline 25 mg PO DAILY simethicone 80 mg PO 5XD PRN simvastatin 5 mg PO BEDTIME sodium chloride 0.65% (Saline Nasal) 1 spray intranasal Q4H PRN tamsulosin 0.4 mg PO BEDTIME HPI PO-s/p right hip IM Nail-05/28/23 HPI Details 82-year-old female who returns to the [facility] today with her daughter for post-op right hip IMN, 05/28/[address] Mcghee. She reports she continues to have pain in her hip and rates the pain as 5 on the scale of 0-10. Her pain is aggravated with movement. She is doing well overall and has no other concerns today. [facility] Medical History Frontotemporal dementia Medicare annual wellness visit, subsequent Post-menopausal Nocturia Weak urinary stream Left tibial fracture Vitamin D deficiency Neurogenic bladder GERD (gastroesophageal reflux disease) Esophageal stricture Hypercholesterolemia Hypertension Tubular adenoma of colon Surgical History S/P CONSUELO-BSO History of colonoscopy Skin cancer of face History of removal of cyst History of biopsy History of lumpectomy of right breast History of removal of ovarian cyst History of bladder surgery History of tonsillectomy and adenoidectomy Family History Father Lung cancer Mother No problems noted. Social History Household Members: Spouse Housing: Apartment Do you presently have visiting nurse or other home services: No Alcohol intake: current Alcohol intake frequency: does not drink Patient Tobacco Use Status: Never used Tobacco Cigarette Packs Per Day: 0 Cigarettes Per Day: 0 Years Smoked: 0 e-Cigarette/Vaping Use: Never Used Second Hand Smoke Exposure: No service: No Current occupational status: retired Current occupational exposures/hazards: No Cognitive needs: No Hearing needs: Yes Vision needs: Yes Review of Systems Const All systems reviewed & are unremarkable except as noted in HPI and below Physical Exam Extrem Other: Right hip: Incision well healed. No erythema or drainage. She has mild tenderness with hip flexion. No tenderness with ROM of hip. NVI. Results Reviewed Results Reviewed: X-rays of the right hip obtained in the office today show intact intermedullary nail with stable fracture pattern. Assessment & Plan Assessment & Plan (1) Intertrochanteric fracture of right femur: Code(s): S72.141A - Displaced intertrochanteric fracture of right femur, initial encounter for closed fracture Qualifiers: Encounter type: subsequent encounter Fracture type: closed Fracture alignment: displaced Fracture healing: with routine healing Qualified Code(s): S72.141D - Displaced intertrochanteric fracture of right femur, subsequent encounter for closed fracture with routine healing Plan She will continue working with physical therapy for gait training, balance, core and lumbar stabilization and ADLs with a goal of reaching prior level of function. I would like to see her back in 4 weeks with x-rays, sooner if needed. Orders: Orders XR hip RT w PEL1V 06/18/23 M25.559 - Pain in unspecified hip XR femur RT 2V Today S72.142A - Displaced intertrochanteric fracture of left femur, initial encounter for closed fracture Patient Instructions: Scribed for Dev Aguilar PA-C, by Marques Askew medical oncologist, on 07/01/2023 at 12:30 PM DRU. Dev Garcia PA-C, have personally reviewed and agree with the information entered by the scribe. Coding Level of Care Code Global (16024) Diagnoses Closed displaced intertrochanteric fracture of right femur with routine healing, subsequent encounter S72.141D Encounter type: subsequent encounter Fracture type: closed Fracture alignment: displaced Fracture healing: with routine healing
== END 2023-07-01 13:02 | disposition home or self-care (01) ==
PROVIDERS: PCP Internal Medicine; Visit Provider Physician Assistant
DX: S72.141D Displaced intertrochanteric fracture of right femur, subsequent encounter for closed fracture with routine healing (principal)
CPT/HCPCS: 99024

== ENCOUNTER 2023-08-05 05:54 | Outpatient (REF) | payer MEDICARE, OTHER, SELFPAY ==
--- NOTE | ~2023-08-05 | XR_ITS ---
EXAMINATION: XR FEMUR, RIGHT CLINICAL INFORMATION: Displaced intertrochanteric fracture of the right femur COMPARISON: Right femur radiographs on 07/01/2023 TECHNIQUE: AP and lateral views of the right femur were obtained. FINDINGS: Diffuse osteopenia. Sequelae of ORIF with dynamic screw and intramedullary roberto. The hardware is intact without fracture or perihardware lucency to suggest loosening or infection. No significant change in alignment of the fracture site. No new fracture identified. The hip and knee joint spaces are approximated. Moderate to severe degenerative changes of the hip and knee joints. No soft tissue abnormality. XR/XR femur RT 2V IMPRESSION: -Redemonstration of postsurgical changes from ORIF with intact hardware. -No significant change in alignment of the fracture site.
== END 2023-08-05 05:55 | disposition home or self-care (01) ==
LOC: HO.HOSX 05:54
PROVIDERS: Visit Provider Physician Assistant
DX: S72.141A Displaced intertrochanteric fracture of right femur, initial encounter for closed fracture (principal)
CPT/HCPCS: 73552; 99212

== ENCOUNTER 2023-08-05 13:16 | Outpatient (AMB) | payer MEDICARE, OTHER, SELFPAY ==
--- NOTE | 2023-08-05 13:24 | A.OFFVIS_ITS ---
Intake Intake Visit Reasons: PO-Rt hip IMN 05/28/23 w xrays Intake Note: Eliza an 82 year old female presents today for a post operative right hip IMN on 05/28/23 NE. Xrays updated. Patient reports she is doing well, states some soreness in her leg. Allergies Sulfa (Sulfonamide Antibiotics) [SULFA (SULFONAMIDE ANTIBIOTICS)] Allergy (Unknown, Verified 08/05/23 13:54) UNKNOWN, hives HPI PO-Rt hip IMN 05/28/23 w xrays HPI Details 82-year-old female who returns to the [facility] today for post-op right hip IMN, 05/28/[address] Mcghee. She is working with physical therapy as instructed. She is doing well overall and has no concerns today. [facility] Medical History Frontotemporal dementia Medicare annual wellness visit, subsequent Post-menopausal Nocturia Weak urinary stream Left tibial fracture Vitamin D deficiency Neurogenic bladder GERD (gastroesophageal reflux disease) Esophageal stricture Hypercholesterolemia Hypertension Tubular adenoma of colon Surgical History S/P CONSUELO-BSO History of colonoscopy Skin cancer of face History of removal of cyst History of biopsy History of lumpectomy of right breast History of removal of ovarian cyst History of bladder surgery History of tonsillectomy and adenoidectomy Family History Father Lung cancer Mother No problems noted. Social History Household Members: Spouse Housing: Apartment Do you presently have visiting nurse or other home services: No Alcohol intake: current Alcohol intake frequency: does not drink Patient Tobacco Use Status: Never used Tobacco Cigarette Packs Per Day: 0 Cigarettes Per Day: 0 Years Smoked: 0 e-Cigarette/Vaping Use: Never Used Second Hand Smoke Exposure: No service: No Current occupational status: retired Current occupational exposures/hazards: No Cognitive needs: No Hearing needs: Yes Vision needs: Yes Review of Systems Const All systems reviewed & are unremarkable except as noted in HPI and below Physical Exam Extrem Other: Right hip: Incision well healed. No erythema or drainage. She has mild tenderness with hip flexion. No tenderness with ROM of hip. NVI. Results Reviewed Results Reviewed: X-rays of the right hip obtained in the office today show intact intermedullary nail with stable fracture pattern. Assessment & Plan Assessment & Plan (1) Intertrochanteric fracture of right femur: Code(s): S72.141A - Displaced intertrochanteric fracture of right femur, initial encounter for closed fracture Qualifiers: Encounter type: subsequent encounter Fracture alignment: displaced Fracture healing: with routine healing Fracture type: closed Qualified Code( s): S72.141D - Displaced intertrochanteric fracture of right femur, subsequent encounter for closed fracture with routine healing Plan She will continue working with physical therapy for balance and gait training along with strengthening exercises. She will see me back in 6 weeks with x-rays, sooner if needed. Orders: Orders XR femur RT 2V Today S72.142A - Displaced intertrochanteric fracture of left femur, initial encounter for closed fracture Patient Instructions: Scribed for Dev Aguilar PA-C, by Marques Askew medical transcriber, on 08/05/2023 at 1:15 PM EST. Dev Garcia PA-C, have personally reviewed and agree with the information entered by the scribe. Coding Level of Care Code Global (23812) Diagnoses Closed displaced intertrochanteric fracture of right femur with routine healing, subsequent encounter S72.141D Encounter type: subsequent encounter Fracture alignment: displaced Fracture healing: with routine healing Fracture type: closed
== END 2023-08-05 14:24 | disposition home or self-care (01) ==
PROVIDERS: PCP Internal Medicine; Visit Provider Physician Assistant
DX: S72.141D Displaced intertrochanteric fracture of right femur, subsequent encounter for closed fracture with routine healing (principal)
CPT/HCPCS: 99024

== ENCOUNTER 2023-08-06 09:22 | Outpatient (REF) | payer MEDICARE, OTHER, SELFPAY | END 2023-08-06 09:23 | disposition home or self-care (01) | LOC: HO.HOSX 09:22 | PROVIDERS: Visit Provider Physician Assistant | DX: Z13.89 Encounter for screening for other disorder (principal) ==

== ENCOUNTER 2023-09-16 11:49 | Outpatient (REF) | payer MEDICARE, OTHER, SELFPAY ==
--- NOTE | ~2023-09-16 | XR_ITS ---
EXAMINATION: XR HIP, RIGHT CLINICAL INFORMATION: Pain in right hip. COMPARISON: 08/05/2023. TECHNIQUE: AP view of the pelvis and 3 views of the right hip. FINDINGS: Bones are diffusely demineralized. Redemonstration of ORIF with dynamic screw and intramedullary roberto transfixing previously demonstrated fracture. Hardware appears intact. Alignment maintained. [id number] degenerative changes in bilateral hips and on limited views of the right knee. Degenerative changes with scoliosis in the imaged lower lumbar spine. XR/XR hip RT min 2V IMPRESSION: Bones are diffusely demineralized. Redemonstration of ORIF with dynamic screw and intramedullary roberto transfixing previously noted comminuted intratrochanteric fracture right femur. Hardware appears intact.
== END 2023-09-16 11:50 | disposition home or self-care (01) ==
LOC: HO.HOSX 11:49
PROVIDERS: Visit Provider Physician Assistant
DX: S72.141D Displaced intertrochanteric fracture of right femur, subsequent encounter for closed fracture with routine healing (principal)
CPT/HCPCS: 73502; 99212

== ENCOUNTER 2023-09-16 13:05 | Outpatient (AMB) | payer MEDICARE, OTHER, SELFPAY ==
--- NOTE | 2023-09-16 13:15 | A.OFFVIS_ITS ---
Vital Signs 09/16/23 13:17 Height 5 ft 6 in Weight 124 lb BMI 20.0 Intake Visit Reasons: OV-Rt hip IMN 05/28/23-follow up Intake Note: Eliza is a 83 year old female, right hand dominant, who presents today for right hip IMN 05/28/23 follow up. Patient reports soreness that radiates to her lower back when sitting, 4 on a 0-10 pain scale. . Pricing Specialist Required: No Accompanied by: Daughter Allergies Sulfa (Sulfonamide Antibiotics) [SULFA (SULFONAMIDE ANTIBIOTICS)] Allergy (Unknown, Verified 09/16/23 13:24) UNKNOWN, hives HPI HPI OV-Rt hip IMN 05/28/23-follow up: Details: 83-year-old right hand dominant female who returns to the office today for a follow-up of right hip IMN, 05/28/23. She continues to have pain and soreness in her hip which radiates to her lower back when sitting. She rates the pain as 4 on the scale of 0-10. She is working on physical therapy as instructed. She has no other concerns today. [facility] Medical History Frontotemporal dementia Medicare annual wellness visit, subsequent Post-menopausal Nocturia Weak urinary stream Left tibial fracture Vitamin D deficiency Neurogenic bladder GERD (gastroesophageal reflux disease) Esophageal stricture Hypercholesterolemia Hypertension Tubular adenoma of colon Surgical History S/P CONSUELO-BSO History of colonoscopy Skin cancer of face History of removal of cyst History of biopsy History of lumpectomy of right breast History of removal of ovarian cyst History of bladder surgery History of tonsillectomy and adenoidectomy Family History Father Lung cancer Mother No problems noted. Social History Household Members: Spouse Housing: Apartment Do you presently have visiting nurse or other home services: No Alcohol intake: current Alcohol intake frequency: does not drink Patient Tobacco Use Status: Never used Tobacco Cigarette Packs Per Day: 0 Cigarettes Per Day: 0 Years Smoked: 0 e-Cigarette/Vaping Use: Never Used Second Hand Smoke Exposure: No service: No Current occupational status: retired Current occupational exposures/hazards: No Cognitive needs: No Hearing needs: Yes Vision needs: Yes Review of Systems Const All systems reviewed & are unremarkable except as noted in HPI and below Physical Exam Vital Signs: BMI result Body Mass Index 20.0 Extrem Other: Right hip: Incision well healed. No erythema or drainage. She has mild tenderness with hip flexion. No tenderness with ROM of hip. NVI. Results Reviewed Results Reviewed: X-rays of the right hip obtained in the office today show intact intermedullary nail with stable fracture pattern. Assessment & Plan Assessment & Plan (1) Intertrochanteric fracture of right femur: Code(s): S72.141A - Displaced intertrochanteric fracture of right femur, initial encounter for closed fracture Category: Medical Qualifiers: Encounter type: subsequent encounter Fracture alignment: displaced Fracture healing: with routine healing Fracture type: closed Qualified Code(s): S72.141D - Displaced intertrochanteric fracture of right femur, subsequent encounter for closed fracture with routine healing Plan She will continue with physical therapy to regain her strength and work on posture as well. She will also ween out of the walker and work on using a cane. If symptoms persist or worsens, patient will contact the office, otherwise follow-up as needed. Orders: Orders XR hip RT min 2V 09/16/23 M25.551 - Pain in right hip Patient Instructions: Scribed for Dev Aguilar PA-C, by Marques Askew medical office assistant, on 09/16/2023 at 1:00 PM EST. IDev PA-C, have personally reviewed and agree with the information entered by the scribe. Coding Level of Care Code Global (59390) Diagnoses Closed displaced intertrochanteric fracture of right femur with routine healing, subsequent encounter S72.141D Encounter type: subsequent encounter Fracture alignment: displaced Fracture healing: with routine healing Fracture type: closed
== END 2023-09-16 13:50 | disposition home or self-care (01) ==
PROVIDERS: PCP Internal Medicine; Visit Provider Physician Assistant
DX: S72.141D Displaced intertrochanteric fracture of right femur, subsequent encounter for closed fracture with routine healing (principal)
CPT/HCPCS: 99213

== ENCOUNTER 2023-10-01 14:31 | Outpatient (AMB) | payer MEDICARE, OTHER, SELFPAY ==
--- NOTE | 2023-10-01 14:36 | MHC.OFFVIS ---
Intake Visit Reasons: 1yr follow up/PVR Intake Note: Patient is Present for PVR/ Urology Med: None Antibiotic Allergy: Sulfa antibiotics Blood Thinner:Aspirin Last PVR: 96 Todays PVR: 211 Allergies Sulfa (Sulfonamide Antibiotics) [SULFA (SULFONAMIDE ANTIBIOTICS)] Allergy (Unknown, Verified 10/01/23 14:43) UNKNOWN, hives HPI Comments Details: Eliza is a pleasant 82-year-old female patient of Dr. Kendall who was accompanied by her daughter at todays office visit. She has a PMH of urinary retention with incomplete bladder emptying, uterine prolapse, recurrent urinary tract infections, Alzheimer's dementia, GERD,and hypercholesteremia. She presents to the office today for follow-up of her incomplete bladder emptying. In discussion with the patient and her daughter today she reports since her last office visit here approximately one year ago she has lost since lost her . She is now living in assited living. She reports previously her had been helping her and she was performing CIC b.i.d. She has since underwent a complete hysterectomy approximately 11 months ago and is following up with urogynecology. She reports she is undergoing possible InterStim placement with Dr. Espinoza sometime in November. In office urinalysis results reviewed with the patient today. 3+ leukocytes negative nitrates. Patient does report urinary urgency and frequency however she denies hematuria, dysuria, foul smelling urine, changes to urinary stream, flank pain, fever, and or chills. PVR 211 mL. She does report to be compliance with 0.8 mg of Flomax daily as well as Estrace cream as prescribed. Discussed at length potential causes for lower urinary tract symptoms patient is experiencing as well as incomplete bladder emptying. She otherwise offers no other issues or concerns at this time. [facility] INCLUDES THE [facility] Medical History Frontotemporal dementia Medicare annual wellness visit, subsequent Post-menopausal Nocturia Weak urinary stream Left tibial fracture Vitamin D deficiency Neurogenic bladder GERD (gastroesophageal reflux disease) Esophageal stricture Hypercholesterolemia Hypertension Tubular adenoma of colon Surgical History S/P CONSUELO-BSO History of colonoscopy Skin cancer of face History of removal of cyst History of biopsy History of lumpectomy of right breast History of removal of ovarian cyst History of bladder surgery History of tonsillectomy and adenoidectomy Family History Father Lung cancer Mother No problems noted. Social History Household Members: Spouse Housing: Apartment Do you presently have visiting nurse or other home services: No Alcohol intake: current Alcohol intake frequency: does not drink Patient Tobacco Use Status: Never used Tobacco Cigarette Packs Per Day: 0 Cigarettes Per Day: 0 Years Smoked: 0 e-Cigarette/Vaping Use: Never Used Second Hand Smoke Exposure: No service: No Current occupational status: retired Current occupational exposures/hazards: No Cognitive needs: No Hearing needs: Yes Vision needs: Yes Review of Systems Const Reports as per HPI Eyes Reports no additional complaints ENT Reports no additional complaints Card Reports no additional complaints Resp Reports no additional complaints GI Reports as per HPI Reports as per HPI Musc Reports no additional complaints Neuro Reports as per HPI Physical Exam Const General: cooperative, healthy appearing, comfortable, no acute distress, well developed, alert and awake Orientation/consciousness: patient oriented x3 HEENT Head: Yes normal to inspection, Yes normocephalic and Yes atraumatic Ears: hearing grossly normal bilaterally Eyes General: appearance normal, both eyes and all related structures Neck Neck: Yes normal visual inspection and Yes trachea midline Chest Chest palpation & inspection: normal inspection of the chest Resp Effort & Inspection: normal respiratory effort and able to speak in complete sentences Cardio Rate: regular rate GI Inspection: Yes normal to inspection General: Yes no CVA tenderness Back/Spine/Pelvis Back: no CVA tenderness Skin General skin exam: no rashes or lesions noted Neuro General: patient oriented x3 Extrem General: Yes normal to inspection Psych Appearance: grossly normal and well kempt Mental Status: mental status grossly normal Speech and movement: Normal speech and movement present and Clear speech present Affect: normal affect Attitude: cooperative Thought process: Normal thought process present Thought content: Normal thought content present Insight: Fair insight present (Psych) Judgement: Fair judgement present (Psych) Office Procedures Post Void Residual Post Residual Void Post Void Residual (PVR): 211 [id number] Void Residual by ultrasound Results AMB Urinalysis, Automated UA Leukoctes 500 Lizabeth/uL Last Edit by ES Tony on 10/01/23 15:00 UA Nitrite Negative Last Edit by Kirstin Santana, RMA on 10/01/23 15:00 UA Urobilinogen 0.2 mg/dL Last Edit by Kirstin Santana, RMA on 10/01/23 15:00 UA Protein 30 mg/dL Last Edit by Kirstin Santana, RMA on 10/01/23 15:00 UA pH 6.0 Last Edit by Kirstin Santana, RMA on 10/01/23 15:00 UA Blood 10 Luis/uL Last Edit by Kirstin Santana, RMA on 10/01/23 15:00 UA Specific [place] 1.010 Last Edit by Kirstin Santana, RMA on 10/01/23 15:00 UA Ketone Negative Last Edit by Kirstin Santana, RMA on 10/01/23 15:00 UA Bilirubin 0 mg/dL Last Edit by Kirstin Santana, RMA on 10/01/23 15:00 UA Glucose 0 mg/dL Last Edit by Kirstin Santana, RMA on 10/01/23 15:00 Results Reviewed Results Reviewed: Laboratory Last Values Urine pH (Auto) 6.0 10/01/23 14:44 Specific [place] (Auto) 1.010 10/01/23 14:44 Urine Protein (Auto) 30 mg/dL 10/01/23 14:44 Glucose (UA)(Auto) 0 mg/dL 10/01/23 14:44 Urine Ketones (Auto) Negative 10/01/23 14:44 Urine Blood (Auto) 10 Luis/uL 10/01/23 14:44 Urine Nitrite (Auto) Negative 10/01/23 14:44 Urine Bilirubin (Auto) 0 mg/dL 10/01/23 14:44 Urine Urobilinogen (Auto) 0.2 mg/dL 10/01/23 14:44 Leukocyte Esterase (Auto) 500 Lizabeth/uL 10/01/23 14:44 Assessment & Plan Assessment & Plan (1) Urinary retention with incomplete bladder emptying: Code(s): R33.9 - Retention of urine, unspecified Category: Medical (2) Recurrent UTI (urinary tract infection): Code(s): N39.0 - Urinary tract infection, site not specified Category: Medical (3) Lower urinary tract symptoms: Code(s): R39.9 - Unspecified symptoms and signs involving the genitourinary system Category: Medical Plan In office urinalysis results reviewed with the patient today; as noted above; will send for urine culture. Stop Flomax. Start terazosin 1 mg at bedtime. Discussed at length with the patient and daughter today potential causes for lower urinary tract symptoms patient is experiencing. Discussed causes and affects of incomplete bladder emptying. Discussed attempting to double void to assist with incomplete bladder emptying. Continue Estrace cream as prescribed. Will attempt to obtain medical records from Dr. Espinoza for continuity of care. Follow-up in 1 month; if not sooner with any issues, concerns, and or questions. Orders: Orders AMB Urinalysis Automated Today Z13.9 - Encounter for screening, unspecified Urine Culture Today N39.0 - Urinary tract infection, site not specified AMB Post Void Residual by ultrasound Today R33.9 - Retention of urine, unspecified Medications: New terazosin 1 mg PO BEDTIME 30 caps 1RF 30 days R39.12 - Poor urinary stream Patient Instructions: The patient had an opportunity to ask questions regarding the treatment plan. All questions were answered. Physical exam, labs, and imaging were discussed and reviewed in detail. As well as risks, benefits, and discussion of treatment choices. No major barriers to understanding were identified. The patient expressed understanding and agreement with the above treatment plan. The patient was made aware they should contact our office by phone for worsening of their current condition, the appearance of new symptoms, or with any questions or concerns. Compliance is encouraged with any medications and follow up testing that is ordered. It is a privilege to be allowed the opportunity to participate in? your urological care.? Again, if you have any questions or concerns If you have any questions or concerns please do not hesitate to contact me. The office is [phone]. This note is constructed using voice recognition software. While every effort has been made to ensure accuracy woodworking bench carpenter errors may have been included. Yours sincerely, JESSI Lennon Coding Level of Care Code Est Pt Level 4 (45197) Complex EM visit Add On G2211 Diagnoses Urinary retention with incomplete bladder emptying R33.9 Recurrent UTI (urinary tract infection) N39.0 Lower urinary tract symptoms R39.9 CPT Codes Post Residual Void - PVR CPT Code: 44401-Ndoi Void Residual by ultrasound ([id number])
== END 2023-10-01 15:34 | disposition home or self-care (01) ==
PROVIDERS: Visit Provider Nurse Practitioner Family
DX: R33.9 Retention of urine, unspecified (principal); N39.0 Urinary tract infection, site not specified; R39.9 Unspecified symptoms and signs involving the genitourinary system; Z13.9 Encounter for screening, unspecified
CPT/HCPCS: 99214; G2211

== ENCOUNTER 2023-10-01 14:31 | Outpatient (REF) | payer MEDICARE, OTHER, SELFPAY | END 2023-10-01 14:32 | disposition home or self-care (01) | LOC: HO.LAB 14:31 | PROVIDERS: Visit Provider Nurse Practitioner Family | DX: N39.0 Urinary tract infection, site not specified (principal); R33.9 Retention of urine, unspecified; R39.12 Poor urinary stream | CPT/HCPCS: 51798; 81003; 87086; 87088; 87186; 99212 ==

== ENCOUNTER 2023-10-29 13:02 | Outpatient (AMB) | payer MEDICARE, OTHER, SELFPAY ==
--- NOTE | 2023-10-29 13:02 | A.OFFVIS_ITS ---
Intake Visit Reasons: follow/PVR Intake Note: Patient presents today for follow up on: LUTS/PVR Urology Med: None Antibiotic Allergy: Sulfa antibiotics Blood Thinner:Aspirin PVR: Last PVR: 211 ml's Allergies Sulfa (Sulfonamide Antibiotics) [SULFA (SULFONAMIDE ANTIBIOTICS)] Allergy (Unknown, Verified 10/29/23 13:36) UNKNOWN, hives Medication List - Last Reconciled 10/29/23 by DONNA Lennon-TATIANA acetaminophen 650 mg (2 x 325 mg) PO Q6H PRN aspirin (Extra Strength Pattie) 500 mg PO Q6H PRN cholecalciferol (vitamin D3) 50 mcg PO DAILY 90 days cranberry extract-vitamin C 250-60 mg 1 cap PO DAILY cyanocobalamin (vitamin B-12) 1,000 mcg PO DAILY 90 days donepezil 10 mg PO BEDTIME enoxaparin 40 mg (0.4 mL) subcut Q24H fluticasone propionate 50 mcg/actuation (Flonase Allergy Relief) 1 spray intranasal DAILY PRN folic acid 1 mg PO DAILY levofloxacin 250 mg PO daily 5 days loratadine 10 mg PO DAILY omeprazole 20 mg PO DAILY sertraline 25 mg PO DAILY simethicone 80 mg PO 5XD PRN simvastatin 5 mg PO BEDTIME sodium chloride 0.65% (Saline Nasal) 1 spray intranasal Q4H PRN terazosin 1 mg PO BEDTIME 30 days HPI Comments Details: Eliza is a pleasant 83-year-old female patient of Dr. Kendall who was accompanied by her daughter at todays office visit. She has a PMH of urinary retention with incomplete bladder emptying, uterine prolapse, recurrent urinary tract infections, Alzheimer's dementia, GERD,and hypercholesteremia. She presents to the office today for follow-up of her incomplete bladder emptying. In discussion with the patient and her daughter today she reports since her last office visit here approximately 1 month ago she was hospitalized last week on 10/21 after a fall at which time she was noted to have a urinary tract infection. She reports having completed antibiotic therapy inpatient and is now on Macrobid. It also appears indwelling Erickson catheter was inserted. Patient's daughter was unaware. Will attempt to obtain hospital records for continuity of care. Discussed attempting voiding trial. Patient's daughter discusses her upcoming appointment with urogynecology Dr. Espinoza for her preop appointment for potential InterStim. She discusses feeling overwhelmed with all her medical appointments. Call to Dr. Espinoza at [phone] to discuss plan of care. She discusses her longstanding history of incomplete bladder emptying thus attempting Interstim. Previously patient had been catheterizing 2 times a day however her had been assisting however he has since . During todays office visit patient continues to be in and out of sleep. She denies any urinary issues. She denies hematuria,flank pain, fever, and or chills. She otherwise offers no other issues or concerns at this time. [facility] Medical History Frontotemporal dementia Medicare annual wellness visit, subsequent Post-menopausal Nocturia Weak urinary stream Left tibial fracture Vitamin D deficiency Neurogenic bladder GERD (gastroesophageal reflux disease) Esophageal stricture Hypercholesterolemia Hypertension Tubular adenoma of colon Surgical History S/P CONSUELO-BSO History of colonoscopy Skin cancer of face History of removal of cyst History of biopsy History of lumpectomy of right breast History of removal of ovarian cyst History of bladder surgery History of tonsillectomy and adenoidectomy Family History Father Lung cancer Mother No problems noted. Social History Household Members: Spouse Housing: Apartment Do you presently have visiting nurse or other home services: No Alcohol intake: current Alcohol intake frequency: does not drink Patient Tobacco Use Status: Never used Tobacco Cigarette Packs Per Day: 0 Cigarettes Per Day: 0 Years Smoked: 0 e-Cigarette/Vaping Use: Never Used Second Hand Smoke Exposure: No service: No Current occupational status: retired Current occupational exposures/hazards: No Cognitive needs: No Hearing needs: Yes Vision needs: Yes Review of Systems Const Reports as per HPI Eyes Reports no additional complaints ENT Reports no additional complaints Card Reports no additional complaints Resp Reports no additional complaints GI Reports as per HPI Reports as per HPI Musc Reports no additional complaints Neuro Reports as per HPI Physical Exam Const General: cooperative, healthy appearing, comfortable, no acute distress, well developed, alert and awake Orientation/consciousness: patient oriented x3 Limitations: wheelchair HEENT Other: patient with 3-4 sutures to left side of her bottom lip. Healing ecchymosis noted to left side of patients face and neck area. Head: Yes normal to inspection, Yes normocephalic and Yes atraumatic Ears: hearing grossly normal bilaterally Eyes General: appearance normal, both eyes and all related structures Neck Neck: Yes normal visual inspection and Yes trachea midline Chest Chest palpation & inspection: normal inspection of the chest Resp Effort & Inspection: normal respiratory effort and able to speak in complete sentences Cardio Rate: regular rate GI Inspection: Yes normal to inspection General: Yes no CVA tenderness Back/Spine/Pelvis Back: no CVA tenderness Skin General skin exam: no rashes or lesions noted Neuro General: patient oriented x3 Extrem General: Yes normal to inspection Psych Appearance: grossly normal and well kempt Mental Status: other (sleepy) Speech and movement: Clear speech present Affect: normal affect Attitude: cooperative Thought process: Normal thought process present Thought content: Normal thought content present Insight: Fair insight present (Psych) Judgement: Fair judgement present (Psych) Assessment & Plan Assessment & Plan (1) Urinary retention with incomplete bladder emptying: Code(s): R33.9 - Retention of urine, unspecified Category: Medical (2) Recurrent UTI (urinary tract infection): Code(s): N39.0 - Urinary tract infection, site not specified Category: Medical (3) Hypotonic neurogenic bladder: Code(s): N31.9 - Neuromuscular dysfunction of bladder, unspecified Category: Medical Plan Will attempt to obtain medical records from recent hospitalization at [facility]; for continuity of care. Call to discuss plan of care with urogynecology. Will plan for in office nursing visit in 1-2 weeks to perform voiding trial. Complete antibiotic therapy as discussed and prescribed. Discussed further treatment options for incomplete bladder emptying/urinary retention; will attempt InterStim with urogynecology. Discussed possible SPT if interstim failure. Discussed UTI prevention with D mannose supplement, vitamin-C, increasing fluid intake, behavioral therapy with timed voiding, perineal hygiene and postcoital voiding, and management of constipation with stool softeners and increased fiber intake. Will obtain retroperitoneal ultrasound for further assessment evaluation. Follow-up with nursing in 1-2 weeks for voiding trial Follow-up with provider in 1-3 months with imaging to be completed prior; or sooner with any issues, concerns, and or questions. Orders: Orders US retroperitoneal comp Today N31.9 - Neuromuscular dysfunction of bladder, unspecified, N39.0 - Urinary tract infection, site not specified, R33.9 - Retention of urine, unspecified Medications: Discontinued levofloxacin Discontinued Reason: Doctor's Order 250 mg PO daily 5 days 7 tabs 0RF Patient Instructions: The patient had an opportunity to ask questions regarding the treatment plan. All questions were answered. Physical exam, labs, and imaging were discussed and reviewed in detail. As well as risks, benefits, and discussion of treatment choices. No major barriers to understanding were identified. The patient expres sed understanding and agreement with the above treatment plan. The patient was made aware they should contact our office by phone for worsening of their current condition, the appearance of new symptoms, or with any questions or concerns. Compliance is encouraged with any medications and follow up testing that is ordered. It is a privilege to be allowed the opportunity to participate in? your urological care.? Again, if you have any questions or concerns If you have any questions or concerns please do not hesitate to contact me. The office is [phone]. This note is constructed using voice recognition software. While every effort has been made to ensure accuracy olive brine tester errors may have been included. Yours sincerely, JESSI Lennon Coding Level of Care Code Est Pt Level 4 (22881) Complex EM visit Add On G2211 Diagnoses Urinary retention with incomplete bladder emptying R33.9 Recurrent UTI (urinary tract infection) N39.0 Hypotonic neurogenic bladder N31.9 Time Spent (min) 40
== END 2023-10-29 13:59 | disposition home or self-care (01) ==
PROVIDERS: PCP Internal Medicine; Visit Provider Nurse Practitioner Family
DX: R33.9 Retention of urine, unspecified (principal); N39.0 Urinary tract infection, site not specified; N31.9 Neuromuscular dysfunction of bladder, unspecified
CPT/HCPCS: 99214; G2211

== ENCOUNTER → 2023-10-29 13:02 | Outpatient (BNVA) | payer MEDICARE, OTHER, SELFPAY | PROVIDERS: PCP Internal Medicine; Visit Provider Nurse Practitioner Family | DX: R33.9 Retention of urine, unspecified (principal); N39.0 Urinary tract infection, site not specified; N31.9 Neuromuscular dysfunction of bladder, unspecified | CPT/HCPCS: 99212 ==

== ENCOUNTER → 2023-11-12 08:33 | Outpatient (BNVA) | payer MEDICARE, OTHER, SELFPAY | PROVIDERS: PCP Internal Medicine; Visit Provider Nurse Practitioner Family | DX: R33.9 Retention of urine, unspecified (principal); R39.9 Unspecified symptoms and signs involving the genitourinary system | CPT/HCPCS: 51700; 51702; 51798 ==